=== PATIENT | female | born 1955 | race Two or more races ===

== ENCOUNTER 2020-01-07 06:19 | Inpatient (IN) | payer MEDICAID ==
[~2020-01-07] VITALS: Ht 149.9 cm; Wt 67.6 kg
[2020-01-07] VITALS (8 sets, daily range): BP systolic 133–218; BP diastolic 61–92
--- NOTE | 2020-01-07 06:25 | Emergency Room Report ---
History of Present Illness General Chief Complaint: Abnormal Labs Source: Patient Present Illness HPI Patient is a 65-year-old female brought in by EMS after decreased blood sugar. Patient was noted to have blood sugar in the 30s when seen by EMS. She had been given IV dextrose. Had somewhat improved blood sugar afterward. Patient had previous episode earlier in the day with similar symptoms. Patient had apparently recently seen her doctor and had her medication doses doubled. So she had taken increased amount for the past 3 days to glipizide tablets instead of 1. Had not been having any fever recently. Takes lisinopril for hypertension as well as anticholesterol medications. No prior renal disease known to family or patient. Allergies: Coded Allergies: No Known Allergies (Unverified , 01/07/20) COVID-19 Screening Contact w/high risk pt: No Recent Travel to affected area: No Experienced COVID-19 symptoms?: No COVID-19 Testing performed SALESPERSON JEWELRY: No Patient History Past Medical History: see triage record Now: No Reviewed Nursing Documentation: PMH: Agreed; PSxH: Agreed Nursing Documentation-PMH Past Medical History: No History, Except For Hx Hypertension: Yes Hx Diabetes: Yes Review of Systems All Other Systems: negative except mentioned in HPI Physical Exam Vital Signs Date Time Temp Pulse Resp B/P (MAP) Pulse Ox O2 Delivery O2 Flow Rate FiO2 01/07/20 06:19 98.1 65 18 165/67 (99) 98 Room Air Sp02 EP Interpretation: reviewed, normal General Appearance: normal inspection, well appearing, no apparent distress, alert, GCS 15, non-toxic, obese Head: atraumatic ENT: normal ENT inspection, hearing grossly normal, normal voice Neck: normal inspection, full range of motion, supple, no bony tend Respiratory: normal inspection, lungs clear, normal breath sounds, no respiratory distress, no retraction, no wheezing Cardiovascular #1: regular rate, rhythm, no edema Gastrointestinal: normal inspection, normal bowel sounds, non tender, soft, no guarding, no hernia Genitourinary: no CVA tenderness Musculoskeletal: normal inspection, back normal, normal range of motion Neurologic: alert, motor strength/tone normal, color developer III-XII nml as tested, responsive, speech normal, normal inspection Psychiatric: normal inspection, judgement/insight normal, mood/affect normal Medical Decision Making Diagnostic Impression: Primary Impression: Hypoglycemia secondary to sulfonylurea Additional Impressions: Renal insufficiency Anemia ER Course Presented for hypoglycemia. Differential diagnosis include was not limited to medication overdose, sepsis, decreased medication clearance, among others. Because of complexity of patient's case laboratory tests and imaging studies were ordered. Patient was noted to be awake and alert had repeat blood sugar by EMS at 233. Apparently patient is currently on a long acting sulfonylurea. Patient was given octreotide subcu and started on D10 drip due to drop of blood sugar. She is also given oral food. Patient will be admitted to the hospital for further evaluation and monitoring of blood sugar.Patient's laboratory testing showed some evidence of renal failure. Patient denies any prior history of renal disease or being talked to about dialysis in the past. She was noted to be hypertensive and was given medications for blood pressure. Dr. Guido was contacted for for inpatient management Labs Test 01/07/20 06:30 White Blood Count 10.9 K/UL (4.8-10.8) Red Blood Count 2.67 M/UL (4.20-5.40) Hemoglobin 7.9 G/DL (12.0-16.0) Hematocrit 25.2 % (37.0-47.0) Mean Corpuscular Volume 94 FL (80-99) Mean Corpuscular Hemoglobin 29.7 PG (27.0-31.0) Mean Corpuscular Hemoglobin Concent 31.5 G/DL (32.0-36.0) Red Cell Distribution Width 12.9 % (11.6-14.8) Platelet Count 403 K/UL (150-450) Mean Platelet Volume 5.1 FL (6.5-10.1) Neutrophils (%) (Auto) % (45.0-75.0) Lymphocytes (%) (Auto) % (20.0-45.0) Monocytes (%) (Auto) % (1.0-10.0) Eosinophils (%) (Auto) % (0.0-3.0) Basophils (%) (Auto) % (0.0-2.0) Urine Color Pale yellow Urine Appearance Clear Urine pH 5 (4.5-8.0) Urine Specific [place] 1.015 (1.005-1.035) Urine Protein 4+ (NEGATIVE) Urine Glucose (UA) 1+ (NEGATIVE) Urine Ketones Negative (NEGATIVE) Urine Blood 2+ (NEGATIVE) Urine Nitrite Negative (NEGATIVE) Urine Bilirubin Negative (NEGATIVE) Urine Urobilinogen Normal MG/DL (0.0-1.0) Urine Leukocyte Esterase 1+ (NEGATIVE) Urine RBC 2-4 /HPF (0 - 2) Urine WBC 5-10 /HPF (0 - 2) Urine Squamous Epithelial Cells Few /LPF (NONE/OCC) Urine Bacteria Few /HPF (NONE) Sodium Level 135 MMOL/L (136-145) Potassium Level 4.4 MMOL/L (3.5-5.1) Chloride Level 103 MMOL/L (98-107) Carbon Dioxide Level 18 MMOL/L (21-32) Anion Gap 14 mmol/L (5-15) Blood Urea Nitrogen 83 mg/dL (7-18) Creatinine 7.6 MG/DL (0.55-1.30) Estimat Glomerular Filtration Rate 5.3 mL/min (>60) Glucose Level 117 MG/DL (74-106) Calcium Level 7.4 MG/DL (8.5-10.1) EKG Diagnostic Results Rate: normal - 83 Rhythm: NSR ST Segments: no acute changes Last Vital Signs Date Time Temp Pulse Resp B/P (MAP) Pulse Ox O2 Delivery O2 Flow Rate FiO2 01/07/20 06:19 98.1 65 18 165/67 (99) 98 Room Air Status: unchanged Disposition: ADMITTED INPATIENT Condition: Stable Hermes Izaguirre MD Jan 07, 2020 06:25
[2020-01-07] MEDS ORDERED: SandoSTATIN 50mcg Inj SUBQ ONE (07:00)
[2020-01-07] MEDS ORDERED: Dextrose 10% 1,000 ML IV SCH (07:00)
[2020-01-07 07:01] LABS: HEMATOCRIT 25.2 % (37.0-47.0); HEMOGLOBIN 7.9 G/DL (12.0-16.0); MEAN CORPUSCULAR VOLUME 94 FL (80-99); PLATELET COUNT 403 K/UL (150-450); RED BLOOD COUNT 2.67 M/UL (4.20-5.40); RED CELL DISTRIBUTION WIDTH 12.9 % (11.6-14.8); WHITE BLOOD COUNT 10.9 K/UL (4.8-10.8)
[2020-01-07 07:03] LABS: APPEARANCE,URINE CLEAR; BILIRUBIN, URINE NEGATIVE (NEGATIVE); COLOR,URINE PALE YELLOW; GLUCOSE, URINE (UA) 1+ (NEGATIVE); KETONES,URINE NEGATIVE (NEGATIVE); LEUKOCYTE ESTERASE ,URINE 1+ (NEGATIVE); NITRITE,URINE NEGATIVE (NEGATIVE); PH,URINE 5 (4.5-8.0); PROTEIN,URINE 4+ (NEGATIVE); UROBILINOGEN,URINE NORMAL MG/DL (0.0-1.0)
[2020-01-07] MEDS ORDERED: ASPIRIN81 MG ORAL (07:11)
[2020-01-07] MEDS ORDERED: GLIPIZIDE ER2.5 MG PO (07:11)
[2020-01-07] MEDS ORDERED: LISINOPRIL20 MG ORAL (07:11)
[2020-01-07 07:12] LABS: ANION GAP 14 mmol/L (5-15); BLOOD UREA NITROGEN 83 mg/dL (7-18); CALCIUM 7.4 MG/DL (8.5-10.1); CARBON DIOXIDE 18 MMOL/L (21-32); CHLORIDE 103 MMOL/L (98-107); CREATININE 7.6 MG/DL (0.55-1.30); POTASSIUM 4.4 MMOL/L (3.5-5.1); SODIUM 135 MMOL/L (136-145)
[2020-01-07 07:24] LABS: ALANINE AMINOTRANSFERASE 24 U/L (12-78); ALBUMIN 2.1 G/DL (3.4-5.0); ALBUMIN/GLOBULIN RATIO 0.5 (1.0-2.7); ALKALINE PHOSPHATASE 114 U/L (46-116); ASPARTATE AMINO TRANSFERASE 29 U/L (15-37); BILIRUBIN,TOTAL 0.2 MG/DL (0.2-1.0)
[2020-01-07] MEDS ORDERED: cefTRIAXone 1 GM in NS 55 ML IVPB ONE (07:30)
[2020-01-07] MEDS ORDERED: HydrALAZINE 25mg tab ORAL PRN (10:45)
--- NOTE | 2020-01-07 11:56 | Consultation ---
History of Present Illness General Chief Complaint: Abnormal Labs Present Illness HPI This is a 64 year old chilean speaking female with the past medical history of DM and HTN presents with 2 weeks of nausea, aneroxiaad recurrent hypoglycemia. Patient notes that her DM medication was recently increased in dose. She is not aware of any history of renal disease. No hematuria or foamy urine. Notes decreasing UOP over the past several days. On presentation her BUN/cr noted to be markedly elevated. Denies any recent NSAID use. of note she is on lisinopril for blood pressure control. Allergies: Coded Allergies: No Known Allergies (Unverified , 01/07/20) Medication History Scheduled Aspirin* (Aspirin*), 81 MG ORAL DAILY, (Reported) Lisinopril (Lisinopril*), 20 MG ORAL DAILY, (Reported) Miscellaneous Medications Glipizide (Glipizide Er), 2.5 MG PO, (Reported) Patient History Healthcare decision maker Resuscitation status Advanced Directive on File Review of Systems Constitutional: Reports: malaise, weakness Eye: Reports: blurred vision ENT: Denies: no symptoms, see HPI, ear pain, ear discharge, nose pain, nose congestion, throat pain, throat swelling, mouth pain, hearing loss, nasal discharge, other Respiratory: Denies: no symptoms, see HPI, cough, orthopnea, shortness of breath, stridor, wheezing, PADRON, sputum, other Cardiovascular: Denies: no symptoms, see HPI, chest pain, edema, palpitations, syncope, PND, other Gastrointestinal: Denies: no symptoms, see HPI, abdominal pain, constipation, diarrhea, nausea, vomiting, melena, hematemesis, other Genitourinary: Denies: no symptoms, see HPI, discharge, dysuria, frequency, hematuria, pain, retention, incontinence, urgency, vag bleed/dc, other Musculoskeletal: Denies: no symptoms, see HPI, back pain, gout, joint pain, joint swelling, muscle pain, muscle stiffness, other Skin: Denies: no symptoms, see HPI, rash, change in color, change in hair/nails , dryness, lesions, other Psychiatric: Denies: no symptoms, see HPI, prior hx, anxiety, depressed feelings, emotional problems, SI, HI, hallucinations, other Neurological: Denies: no symptoms, see HPI, headache, numbness, paresthesia, seizure, tingling, tremors, focal weakness, syncope, dizziness, other Endocrine: Denies: no symptoms, see HPI, excessive sweating, flushing, intolerance to temperature, increased thirst, increased urine, unexplained weight loss, other Hematologic/Lymphatic: Denies: no symptoms, see HPI, anemia, blood clots, easy bleeding, easy bruising, swollen glands, diathesis, other Physical Exam General Appearance: no apparent distress, alert, lethargic Lines, tubes and drains: peripheral HEENT: normocephalic, atraumatic, anicteric Neck: non-tender, normal alignment Respiratory/Chest: chest wall non-tender, lungs clear, normal breath sounds Extremities: normal range of motion, non-tender Skin Exam: normal pigmentation Neurologic: alert, oriented x 3 Last 24 Hour Vital Signs Date Time Temp Pulse Resp B/P (MAP) Pulse Ox O2 Delivery O2 Flow Rate FiO2 01/07/20 11:17 85 199/85 01/07/20 09:53 97.2 85 18 199/85 (123) 98 01/07/20 09:15 96.5 80 18 164/80 98 Room Air 01/07/20 08:51 96.5 80 18 164/80 98 Room Air 01/07/20 08:23 96.5 75 17 177/85 99 Room Air 01/07/20 07:24 218/82 01/07/20 07:09 94.0 71 16 218/82 98 Room Air 01/07/20 06:29 98.1 65 18 165/67 98 Room Air 01/07/20 06:19 98.1 65 18 165/67 (99) 98 Room Air Intake and Output 01/06/20 01/07/20 19:00 07:00 Intake Total 0 ml Balance 0 ml Intake Oral 0 ml Laboratory Tests Test 01/07/20 06:30 White Blood Count 10.9 K/UL (4.8-10.8) H Red Blood Count 2.67 M/UL (4.20-5.40) L Hemoglobin 7.9 G/DL (12.0-16.0) L Hematocrit 25.2 % (37.0-47.0) L Mean Corpuscular Volume 94 FL (80-99) Mean Corpuscular Hemoglobin 29.7 PG (27.0-31.0) Mean Corpuscular Hemoglobin Concent 31.5 G/DL (32.0-36.0) L Red Cell Distribution Width 12.9 % (11.6-14.8) Platelet Count 403 K/UL (150-450) Mean Platelet Volume 5.1 FL (6.5-10.1) L Neutrophils (%) (Auto) % (45.0-75.0) Lymphocytes (%) (Auto) % (20.0-45.0) Monocytes (%) (Auto) % (1.0-10.0) Eosinophils (%) (Auto) % (0.0-3.0) Basophils (%) (Auto) % (0.0-2.0) Differential Total Cells Counted 100 Neutrophils % (Manual) 76 % (45-75) H Lymphocytes % (Manual) 14 % (20-45) L Monocytes % (Manual) 7 % (1-10) Eosinophils % (Manual) 3 % (0-3) Basophils % (Manual) 0 % (0-2) Band Neutrophils 0 % (0-8) Platelet Estimate Adequate Platelet Morphology Normal Hypochromasia 1+ Urine Color Pale yellow Urine Appearance Clear Urine pH 5 (4.5-8.0) Urine Specific [place] 1.015 (1.005-1.035) Urine Protein 4+ (NEGATIVE) H Urine Glucose (UA) 1+ (NEGATIVE) H Urine Ketones Negative (NEGATIVE) Urine Blood 2+ (NEGATIVE) H Urine Nitrite Negative (NEGATIVE) Urine Bilirubin Negative (NEGATIVE) Urine Urobilinogen Normal MG/DL (0.0-1.0) Urine Leukocyte Esterase 1+ (NEGATIVE) H Urine RBC 2-4 /HPF (0 - 2) H Urine WBC 5-10 /HPF (0 - 2) H Urine Squamous Epithelial Cells Few /LPF (NONE/OCC) Urine Bacteria Few /HPF (NONE) Sodium Level 135 MMOL/L (136-145) L Potassium Level 4.4 MMOL/L (3.5-5.1) Chloride Level 103 MMOL/L (98-107) Carbon Dioxide Level 18 MMOL/L (21-32) L Anion Gap 14 mmol/L (5-15) Blood Urea Nitrogen 83 mg/dL (7-18) H Creatinine 7.6 MG/DL (0.55-1.30) H Estimat Glomerular Filtration Rate 5.3 mL/min (>60) Glucose Level 117 MG/DL (74-106) H Calcium Level 7.4 MG/DL (8.5-10.1) L Total Bilirubin 0.2 MG/DL (0.2-1.0) Aspartate Amino Transf (AST/SGOT) 29 U/L (15-37) Alanine Aminotransferase (ALT/SGPT) 24 U/L (12-78) Alkaline Phosphatase 114 U/L (46-116) C-Reactive Protein, Quantitative < 0.4 mg/dL (0.00-0.90) Total Protein 6.6 G/DL (6.4-8.2) Albumin 2.1 G/DL (3.4-5.0) L Globulin 4.5 g/dL Albumin/Globulin Ratio 0.5 (1.0-2.7) L Thyroid Stimulating Hormone (TSH) 3.499 uiU/mL (0.358-3.740) Height (Feet): 4 Height (Inches): 11.00 Weight (Pounds): 150 Medications Current Medications Medications (Trade) Dose Ordered Sig/[place] Route PRN Reason Start Time Stop Time Status Last Admin Dose Admin Amlodipine Besylate (Norvasc) 10 mg DAILY ORAL 01/07/20 11:00 02/06/20 10:59 01/07/20 11:17 Dextrose (Dextrose 50%) 25 ml Q30M PRN IV Hypoglycemia 01/07/20 10:45 04/06/20 10:44 Dextrose (Dextrose 50%) 50 ml Q30M PRN IV Hypoglycemia 01/07/20 10:45 04/06/20 10:44 Hydralazine HCl (Apresoline) 25 mg Q6H PRN ORAL SBP > 160mmHg 01/07/20 10:45 04/06/20 10:44 Insulin Aspart (NovoLOG) Q4HR SUBQ 01/07/20 13:00 04/06/20 12:59 Assessment/Plan Diagnosis [place]: #NAREN vs NAREN On CKD-- ? ESRD due to DM and HTN- ua with 4+ proteinuria #Hyperkalemia #Hypoglycemia #HTN- accelerated #DM #HLD #anemia of CKD? - hold off fluid given accelerated BP and unsure if she is making enough urine or not - placed mcgrath - check renal US - UTP/cr - urine chem - kayexalate for hyperkalemia - iron panel - amlodipine 10mg daily - hydralazine PRN for now - check BNP - check echo - PTH/vitamin D - check BMP tonight - avoid nephrotoxins - strict I&Os time spent 70 min, greater than 50% on care coordination and counseling. Anand Cannon M.D. Jan 07, 2020 11:56
[2020-01-07 13:29] LABS: ANION GAP 16 mmol/L (5-15); BLOOD UREA NITROGEN 82 mg/dL (7-18); CALCIUM 7.4 MG/DL (8.5-10.1); CARBON DIOXIDE 17 MMOL/L (21-32); CHLORIDE 100 MMOL/L (98-107); CREATININE 7.8 MG/DL (0.55-1.30); POTASSIUM 5.6 MMOL/L (3.5-5.1); SODIUM 133 MMOL/L (136-145)
[2020-01-07] MEDS: NovoLOG Insulin Flexpen SUBQ SCH ×3 (13:52→21:00)
[2020-01-07] MEDS ORDERED: Sodium Polystyrene Sulfonate 15gm Powder ORAL SCH (15:00)
--- NOTE | 2020-01-07 15:04 | History and Physical ---
History of Present Illness General Date patient seen: Jan 07, 2020 Time patient seen: 15:00 Reason for Hospitalization: Hypoglycemia Present Illness HPI 64y/o female with pmh of HTN, DM2 who presents with hypoglycemia. Pt noted to be confused and BG in 30s, EMS called, given D50 amp with improvement. Of note pt recently had doses of glipizide increased for the past few days. Denies f/c, n/v, d/c, chests pain, SOB, abd pain, cough. In ED, pt started on D10W gtt. Labs also noteable for Cr 7's, BUN 80. Unclear baseline Cr/BUN. Pt denies h/o renal disease. PMH: as above SH: lives at home w/ family. Denies T/E/D FMH: denies Allergies: Coded Allergies: No Known Allergies (Unverified , 01/07/20) COVID-19 Screening Contact w/high risk pt: No Recent Travel to affected area: No Experienced COVID-19 symptoms?: No Medication History Scheduled Aspirin* (Aspirin*), 81 MG ORAL DAILY, (Reported) Lisinopril (Lisinopril*), 20 MG ORAL DAILY, (Reported) Miscellaneous Medications Glipizide (Glipizide Er), 2.5 MG PO, (Reported) Patient History Healthcare decision maker Resuscitation status Advanced Directive on File Review of Systems ROS Narrative CONSTITUTIONAL: No weight loss, fever, chills, weakness or fatigue. HEENT: Eyes: No visual loss, blurred vision, double vision or yellow sclerae. Ears, Nose, Throat: No hearing loss, sneezing, congestion, runny nose or sore throat. SKIN: No rash or itching. CARDIOVASCULAR: No chest pain, chest pressure or chest discomfort. No palpitations or edema. RESPIRATORY: No shortness of breath, cough or sputum. GASTROINTESTINAL: No anorexia, nausea, vomiting or diarrhea. No abdominal pain or blood. NEUROLOGICAL: No headache, dizziness, syncope, paralysis, ataxia, numbness or tingling in the extremities. No change in bowel or bladder control. MUSCULOSKELETAL: No muscle, back pain, joint pain or stiffness. HEMATOLOGIC: No anemia, bleeding or bruising. LYMPHATICS: No enlarged nodes. No history of splenectomy. PSYCHIATRIC: No history of depression or anxiety. ENDOCRINOLOGIC: No reports of sweating, cold or heat intolerance. No polyuria or polydipsia. ALLERGIES: No history of asthma, hives, eczema or rhinitis. Physical Exam Physical Exam Narrative General: alert, cooperative, no distress, appears stated age Head: normocephalic, without obvious abnormality, atraumatic Eyes: conjunctivae/corneas clear. PERRL, EOM's intact Throat: lips, mucosa, and tongue normal. MMM Neck: supple, symmetrical, trachea midline, and no JVD Lungs: clear to auscultation bilaterally Heart: regular rate and rhythm, S1, S2 normal, no murmur, click, rub or gallop Abdomen: soft, non-tender, non-distended, bowel sounds normal; no masses or organomegaly Extremities: extremities normal, atraumatic, no cyanosis or edema Pulses: 2+ and symmetric Skin: skin color, texture, turgor normal; no rashes or lesions Neurologic: grossly normal, no focal deficits Last 24 Hour Vital Signs Date Time Temp Pulse Resp B/P (MAP) Pulse Ox O2 Delivery O2 Flow Rate FiO2 01/07/20 14:43 184/92 01/07/20 12:00 97.9 73 18 184/92 (122) 97 01/07/20 11:17 85 199/85 01/07/20 09:53 97.2 85 18 199/85 (123) 98 01/07/20 09:15 96.5 80 18 164/80 98 Room Air 01/07/20 08:51 96.5 80 18 164/80 98 Room Air 01/07/20 08:23 96.5 75 17 177/85 99 Room Air 01/07/20 07:24 218/82 01/07/20 07:09 94.0 71 16 218/82 98 Room Air 01/07/20 06:29 98.1 65 18 165/67 98 Room Air 01/07/20 06:19 98.1 65 18 165/67 (99) 98 Room Air Intake and Output 01/06/20 01/07/20 19:00 07:00 Intake Total 0 ml Balance 0 ml Intake Oral 0 ml Laboratory Tests Test 01/07/20 06:30 01/07/20 12:35 White Blood Count 10.9 K/UL (4.8-10.8) H Red Blood Count 2.67 M/UL (4.20-5.40) L Hemoglobin 7.9 G/DL (12.0-16.0) L Hematocrit 25.2 % (37.0-47.0) L Mean Corpuscular Volume 94 FL (80-99) Mean Corpuscular Hemoglobin 29.7 PG (27.0-31.0) Mean Corpuscular Hemoglobin Concent 31.5 G/DL (32.0-36.0) L Red Cell Distribution Width 12.9 % (11.6-14.8) Platelet Count 403 K/UL (150-450) Mean Platelet Volume 5.1 FL (6.5-10.1) L Neutrophils (%) (Auto) % (45.0-75.0) Lymphocytes (%) (Auto) % (20.0-45.0) Monocytes (%) (Auto) % (1.0-10.0) Eosinophils (%) (Auto) % (0.0-3.0) Basophils (%) (Auto) % (0.0-2.0) Differential Total Cells Counted 100 Neutrophils % (Manual) 76 % (45-75) H Lymphocytes % (Manual) 14 % (20-45) L Monocytes % (Manual) 7 % (1-10) Eosinophils % (Manual) 3 % (0-3) Basophils % (Manual) 0 % (0-2) Band Neutrophils 0 % (0-8) Platelet Estimate Adequate Platelet Morphology Normal Hypochromasia 1+ Urine Color Pale yellow Urine Appearance Clear Urine pH 5 (4.5-8.0) Urine Specific [place] 1.015 (1.005-1.035) Urine Protein 4+ (NEGATIVE) H Urine Glucose (UA) 1+ (NEGATIVE) H Urine Ketones Negative (NEGATIVE) Urine Blood 2+ (NEGATIVE) H Urine Nitrite Negative (NEGATIVE) Urine Bilirubin Negative (NEGATIVE) Urine Urobilinogen Normal MG/DL (0.0-1.0) Urine Leukocyte Esterase 1+ (NEGATIVE) H Urine RBC 2-4 /HPF (0 - 2) H Urine WBC 5-10 /HPF (0 - 2) H Urine Squamous Epithelial Cells Few /LPF (NONE/OCC) Urine Bacteria Few /HPF (NONE) Sodium Level 135 MMOL/L (136-145) L 133 MMOL/L (136-145) L Potassium Level 4.4 MMOL/L (3.5-5.1) 5.6 MMOL/L (3.5-5.1) H Chloride Level 103 MMOL/L (98-107) 100 MMOL/L (98-107) Carbon Dioxide Level 18 MMOL/L (21-32) L 17 MMOL/L (21-32) L Anion Gap 14 mmol/L (5-15) 16 mmol/L (5-15) H Blood Urea Nitrogen 83 mg/dL (7-18) H 82 mg/dL (7-18) H Creatinine 7.6 MG/DL (0.55-1.30) H 7.8 MG/DL (0.55-1.30) H Estimat Glomerular Filtration Rate 5.3 mL/min (>60) 5.2 mL/min (>60) Glucose Level 117 MG/DL (74-106) H 286 MG/DL (74-106) #H Calcium Level 7.4 MG/DL (8.5-10.1) L 7.4 MG/DL (8.5-10.1) L Total Bilirubin 0.2 MG/DL (0.2-1.0) Aspartate Amino Transf (AST/SGOT) 29 U/L (15-37) Alanine Aminotransferase (ALT/SGPT) 24 U/L (12-78) Alkaline Phosphatase 114 U/L (46-116) C-Reactive Protein, Quantitative < 0.4 mg/dL (0.00-0.90) Total Protein 6.6 G/DL (6.4-8.2) Albumin 2.1 G/DL (3.4-5.0) L Globulin 4.5 g/dL Albumin/Globulin Ratio 0.5 (1.0-2.7) L Thyroid Stimulating Hormone (TSH) 3.499 uiU/mL (0.358-3.740) Height (Feet): 4 Height (Inches): 11.00 Weight (Pounds): 150 Medications Current Medications Medications (Trade) Dose Ordered Sig/[place] Route PRN Reason Start Time Stop Time Status Last Admin Dose Admin Amlodipine Besylate (Norvasc) 10 mg DAILY ORAL 01/07/20 11:00 02/06/20 10:59 01/07/20 11:17 Dextrose (Dextrose 50%) 25 ml Q30M PRN IV Hypoglycemia 01/07/20 10:45 9/20/20 10:44 Dextrose (Dextrose 50%) 50 ml Q30M PRN IV Hypoglycemia 01/07/20 10:45 04/06/20 10:44 Hydralazine HCl (Apresoline) 10 mg Q4H PRN IV SBP > 160 01/07/20 14:45 04/06/20 14:44 01/07/20 14:43 Insulin Aspart (NovoLOG) Q4HR SUBQ 01/07/20 13:00 04/06/20 12:59 01/07/20 13:52 Assessment/Plan Status: stable Assessment/Plan: 64yo female with pmh of HTN, DM2 who presents with hypoglycemia,and found to have NAREN. # Symptomatic hypoglycemia - BG 30s - likely 2/2 increased dose of glipizide # Acute encephalopathy # Diabetes mellitus type 2 - Hold all hypoglycemic agents - SSI - s/p D10W gtt in ED - Consider endo eval # NAREN vs NAREN on CKD - unclear baseline Cr. BUN 80s/Cr 7's. Pt likely with CKD 2/ 2 underlying diabetes and HTN # Hyperkalemia # Hyponatremia, hypervolemic ype - Renal consulted - Hold lisinopril - Kayexylate x1 today - Trend BMP/Mg/Phos - Check renal U/Ss - May need HD # HTN - Hold lisinopril 2/2 NAREN - Amlodipine 10mg daily started DVT Prophylaxis: SCD, HSQ Code Status: Full Hospital Classification Declaration: Based on this initial evaluation, and depending on the patient's clinical course, I anticipate that this patient will require hospitalization for 2-3 days for hypoglycemia, NAREN, and close respiratory/hemodynamic monitoring. Disposition: Once the patient is stable to leave the hospital, I anticipate the patient will likely be discharged to the following environment: home with HH vs SNF I spent 68 minutes on this patient's case, and 35 minutes were dedicated to counseling and/or care coordination. Discussed with patient/family, nursing staff, renal regarding clinical status, treatment course, and disposition planning. Time of note may not reflect time of encounter. Robin Galvan M.D. Jan 07, 2020 15:04
[2020-01-07 16:25] LABS: ANION GAP 12 mmol/L (5-15); BLOOD UREA NITROGEN 79 mg/dL (7-18); CALCIUM 7.3 MG/DL (8.5-10.1); CARBON DIOXIDE 19 MMOL/L (21-32); CHLORIDE 101 MMOL/L (98-107); CREATININE 7.9 MG/DL (0.55-1.30); POTASSIUM 5.8 MMOL/L (3.5-5.1); SODIUM 131 MMOL/L (136-145)
[2020-01-07 16:37] LABS: BILIRUBIN, URINE NEGATIVE (NEGATIVE); COLOR,URINE PALE YELLOW; GLUCOSE, URINE (UA) 3+ (NEGATIVE); KETONES,URINE NEGATIVE (NEGATIVE); LEUKOCYTE ESTERASE ,URINE NEGATIVE (NEGATIVE); NITRITE,URINE NEGATIVE (NEGATIVE); PH,URINE 6 (4.5-8.0); PROTEIN,URINE 4+ (NEGATIVE); UROBILINOGEN,URINE NORMAL MG/DL (0.0-1.0)
[2020-01-07 16:38] LABS: APPEARANCE,URINE CLEAR
--- NOTE | 2020-01-07 17:07 | Diagnostic Imaging Report ---
EXAM: ULTRASOUND US Renal Comp CLINICAL HISTORY: Impaired renal function. History of diabetes. Abdominal discomfort. COMPARISON: None TECHNIQUE: Ultrasound examination of the kidneys includes grayscale images, and color and spectral doppler analysis. FINDINGS: The right kidney measures 9.1 x 3.7 x 4.2 cm and the left kidney measures 9.5 x 5.4 x 4.8 cm. There is increased cortical echogenicity of both kidneys reflecting medical renal disease. There is no hydronephrosis or stone seen bilaterally. There is incidental finding of a shadowing gallstone. Bladder is empty with Weston catheter in place. IMPRESSION: ECHOGENIC KIDNEYS REFLECTING MEDICAL RENAL DISEASE. NO OBSTRUCTIVE UROPATHY. GALLSTONE.
[2020-01-07] MEDS ORDERED: HydrALAZINE 25mg tab ORAL SCH (18:00)
[2020-01-08] VITALS: BP 152/78
[2020-01-08] MEDS ORDERED: Calcium Gluconate 1gm/50ml 50 ML IVPB ONE (00:15)
[2020-01-08] MEDS ORDERED: Insulin Human Regular 100units/ml 3ml IV ONE (00:15)
[2020-01-08] MEDS ORDERED: Sodium Polystyrene Sulfonate 15gm Powder ORAL ONE (01:00)
[2020-01-08] MEDS ORDERED: Albuterol/Ipratropium 3ml neb HHN ONE (01:00)
[2020-01-08] MEDS: NovoLOG Insulin Flexpen SUBQ SCH ×6 (01:00→20:47)
[2020-01-08 04:00] VITALS: BP 149/71
[2020-01-08 04:45] LABS: ANION GAP 11 mmol/L (5-15); BLOOD UREA NITROGEN 87 mg/dL (7-18); CALCIUM 7.6 MG/DL (8.5-10.1); CARBON DIOXIDE 25 MMOL/L (21-32); CHLORIDE 103 MMOL/L (98-107); CREATININE 8.6 MG/DL (0.55-1.30); POTASSIUM 4.5 MMOL/L (3.5-5.1); SODIUM 139 MMOL/L (136-145)
[2020-01-08 04:49] LABS: PHOSPHORUS 6.2 MG/DL (2.5-4.9)
[2020-01-08 04:52] LABS: HEMATOCRIT 20.5 % (37.0-47.0); MEAN CORPUSCULAR VOLUME 93 FL (80-99); PLATELET COUNT 361 K/UL (150-450); RED BLOOD COUNT 2.22 M/UL (4.20-5.40); RED CELL DISTRIBUTION WIDTH 12.8 % (11.6-14.8); WHITE BLOOD COUNT 11.8 K/UL (4.8-10.8)
[2020-01-08 05:00] LABS: % IRON SATURATION 9 % (15-50); IRON 29 ug/dL (50-175); TOTAL IRON BINDING CAPACITY 307 ug/dL (250-450)
[2020-01-08 05:04] LABS: FERRITIN 35 NG/ML (8-388)
[2020-01-08 05:10] LABS: HEMOGLOBIN 6.6 G/DL (12.0-16.0)
[2020-01-08 08:00] VITALS: BP 153/72
--- NOTE | 2020-01-08 08:26 | Nephrology Progress Note ---
Assessment/Plan Plan #NAREN vs NAREN On CKD-- ? ESRD due to DM and HTN- ua with 4+ proteinuria #Hyperkalemia- improved #Hypoglycemia #hyperphosphetemia #HTN- accelerated #DM #HLD #anemia of CKD? - General surgery consulted for HD line placement- pending consent by family - placed mcgrath - check renal US-> echogenic kidneys - prbc transfusion - IV iron - amlodipine 10mg daily - hydralazine PRN for now - sevelamer 800mgTID - PTH/vitamin D - check BMP tonight - avoid nephrotoxins - strict I&Os time spent 70 min, greater than 50% on care coordination and counseling. Subjective ROS Limited/Unobtainable: No Constitutional: Reports: malaise, weakness HEENT: Denies: no symptoms, eye pain, blurred vision, tearing, double vision, ear pain, ear discharge, nose pain, nose congestion, throat pain, throat swelling, mouth pain, mouth swelling, other Genitourinary: Denies: no symptoms, burning, discharge, frequency, flank pain, hematuria, incontinence, pain, urgency, other Neurologic/Psychiatric: Denies: no symptoms, anxiety, depressed, emotional problems, headache, numbness, paresthesia, pre-existing deficit, seizure, tingling, tremors, weakness, other Subjective BUN and cr risin feeling nausea oliguric plan for to start HD today Martina US:IMPRESSION: ECHOGENIC KIDNEYS REFLECTING MEDICAL RENAL DISEASE. NO OBSTRUCTIVE UROPATHY. GALLSTONE. Objective Objective Last 24 Hour Vital Signs Date Time Temp Pulse Resp B/P (MAP) Pulse Ox O2 Delivery O2 Flow Rate FiO2 01/08/20 08:00 97.9 99 18 153/72 (99) 98 01/08/20 04:00 99.1 91 18 149/71 (97) 99 01/08/20 04:00 90 01/08/20 01:51 96 20 100 Nasal Cannula 2.0 28 103 20 99 01/08/20 01:17 100.1 01/08/20 00:00 81 01/08/20 00:00 100.6 84 18 152/78 (102) 100 01/07/20 21:00 Room Air 01/07/20 20:00 78 01/07/20 20:00 98.9 85 18 133/69 (90) 95 01/07/20 16:00 99.5 82 20 138/61 (86) 97 01/07/20 14:43 184/92 01/07/20 13:50 Room Air 01/07/20 12:00 97.9 73 18 184/92 (122) 97 01/07/20 11:17 85 199/85 01/07/20 09:53 97.2 85 18 199/85 (123) 98 01/07/20 09:15 96.5 80 18 164/80 98 Room Air 01/07/20 08:51 96.5 80 18 164/80 98 Room Air Intake and Output 01/07/20 01/08/20 19:00 07:00 Intake Total 310 ml Output Total 350 ml Balance 310 ml -350 ml Intake Oral 240 ml IV Total 70 ml Output Urine Total 350 ml Laboratory Tests 01/07/20 12:35: Sodium Level 133L, Potassium Level 5.6H, Chloride Level 100, Carbon Dioxide Level 17L, Anion Gap 16H, Blood Urea Nitrogen 82H, Creatinine 7.8H, Estimat Glomerular Filtration Rate 5.2, Glucose Level 286#H, Calcium Level 7.4L 01/07/20 15:40: Sodium Level 131L, Potassium Level 5.8H, Chloride Level 101, Carbon Dioxide Level 19L, Anion Gap 12, Blood Urea Nitrogen 79H, Creatinine 7.9H, Estimat Glomerular Filtration Rate 5.1, Glucose Level 326H, Calcium Level 7.3L, Phosphorus Level 6.4H, Magnesium Level 2.4 01/07/20 16:20: Urine Color Pale yellow, Urine Appearance Clear, Urine pH 6, Urine Specific [place] 1.010, Urine Protein 4+H, Urine Glucose (UA) 3+H, Urine Ketones Negative , Urine Blood 3+H, Urine Nitrite Negative, Urine Bilirubin Negative, Urine Urobilinogen Normal, Urine Leukocyte Esterase Negative, Urine RBC 2-4H, Urine WBC 0-2, Urine Squamous Epithelial Cells Few, Urine Amorphous Sediment ModerateH , Urine Bacteria Few, Urine Random Total Protein 496H, Urine Random Sodium 20, Urine Creatinine 58.7 01/08/20 04:00: Sodium Level 139, Potassium Level 4.5, Chloride Level 103, Carbon Dioxide Level 25, Anion Gap 11, Blood Urea Nitrogen 87H, Creatinine 8.6H, Estimat Glomerular Filtration Rate 4.7, Glucose Level 99#, Calcium Level 7.6L, Phosphorus Level 6.2H, Magnesium Level 2.5H, White Blood Count 11.8H, Red Blood Count 2.22L, Hemoglobin 6.6*L, Hematocrit 20.5L, Mean Corpuscular Volume 93, Mean Corpuscular Hemoglobin 29.7, Mean Corpuscular Hemoglobin Concent 32.2, Red Cell Distribution Width 12.8, Platelet Count 361, Mean Platelet Volume 5.4L, Neutrophils (%) (Auto) , Lymphocytes (%) (Auto) , Monocytes (%) (Auto) , Eosinophils (%) (Auto) , Basophils (%) (Auto) , Neutrophils % (Manual) [Pending] , Lymphocytes % (Manual) [Pending], Platelet Estimate [Pending], Platelet Morphology [Pending], Hemoglobin A1c 6.2H, Lactic Acid Level 1.60, Calcium ( Send out) [Pending], Iron Level 29L, Total Iron Binding Capacity 307, Percent Iron Saturation 9L, Unsaturated Iron Binding 278, Ferritin 35, Pro-B-Type Natriuretic Peptide 32837U, Vitamin B12 Level 1184H, Vitamin D 25-Hydroxy [ Pending], 25-Hydroxy Vitamin D2 [Pending], 25-Hydroxy Vitamin D3 [Pending], Thyroid Stimulating Hormone (TSH) 2.094, Parathyroid Hormone (Intact) [Pending] Height (Feet): 4 Height (Inches): 11.00 Weight (Pounds): 150 General Appearance: lethargic EENT: PERRL/EOMI, normal ENT inspection Neck: non-tender, normal alignment Cardiovascular: normal peripheral pulses, normal rate, regular rhythm Respiratory/Chest: chest wall non-tender, lungs clear Abdomen: normal bowel sounds, non tender Extremities: normal range of motion, non-tender Anand Cannon M.D. Jan 08, 2020 08:26
[2020-01-08] MEDS ORDERED: Docusate 100mg cap ORAL SCH (09:00)
[2020-01-08] MEDS: Aspirin Baby 81mg ORAL SCH (09:33)
--- NOTE | 2020-01-08 10:12 | General Progress Note ---
Assessment/Plan Problem List: (1) Renal insufficiency ICD Codes: N28.9 - Disorder of kidney and ureter, unspecified SNOMED: 290053550, 030451483 (2) Anemia ICD Codes: D64.9 - Anemia, unspecified SNOMED: 668137798 (3) Hypertension ICD Codes: I10 - Essential (primary) hypertension SNOMED: 16486345 (4) Hypoglycemia secondary to sulfonylurea ICD Codes: T38.3X1A - Poisoning by insulin and oral hypoglycemic [antidiabetic ] drugs, accidental (unintentional), initialencounter; E16.0 - Drug-induced hypoglycemia without coma SNOMED: 204409340, 515641848 Status: stable Assessment/Plan: 64yo female with pmh of HTN, DM2 who presents with hypoglycemia,and found to have NAREN. # Symptomatic hypoglycemia - BG 30s - likely 2/2 increased dose of glipizide # Acute encephalopathy # Diabetes mellitus type 2 - Hold all hypoglycemic agents - SSI - s/p D10W gtt in ED - f/u Endo consult # NAREN vs NAREN on CKD - unclear baseline Cr. BUN 80s/Cr 7's. Pt likely with CKD 2/ 2 underlying diabetes and HTN # Hyperkalemia # Hyponatremia, hypervolemic ype - Renal consulted - Hold lisinopril - Kayexylate x1 today - Trend BMP/Mg/Phos - Check renal U/S: renal disease, no signs of post-obstruction - May need HD # Fever - asymptomatic - blood cultures x 2 - lactic acid - f/u CXR - ordered COVID, does not meet in-house criteria for COVID, ilda RN # Anemia -Trend CBC -Check FOBT from stool -Iron panel -GI consult, appreciate recommendations # HTN - Hold lisinopril 2/2 NAREN - Amlodipine 10mg daily started DVT Prophylaxis: SCD, HSQ Code Status: Full Hospital Classification Declaration: Based on this initial evaluation, and depending on the patient's clinical course, I anticipate that this patient will require hospitalization for 2-3 days for hypoglycemia, NAREN, and close respiratory/hemodynamic monitoring. Disposition: Once the patient is stable to leave the hospital, I anticipate the patient will likely be discharged to the following environment: home with HH vs SNF I spent 38 minutes on this patient's case, and 35 minutes were dedicated to counseling and/or care coordination. Discussed with patient/family, nursing staff, renal regarding clinical status, treatment course, and disposition planning. Time of note may not reflect time of encounter. Subjective Date patient seen: Jan 08, 2020 Time patient seen: 10:35 Allergies: Coded Allergies: No Known Allergies (Unverified , 01/07/20) All Systems: reviewed and negative except above Subjective Patient is not making urine T-max of 100.6, overall Patient denies any feeling of fever, chills, abdominal pain, vomiting, diarrhea , cough Attempted to contact family, no answer Objective Last 24 Hour Vital Signs Date Time Temp Pulse Resp B/P (MAP) Pulse Ox O2 Delivery O2 Flow Rate FiO2 01/08/20 09:33 99 153/72 01/08/20 08:00 97.9 99 18 153/72 (99) 98 01/08/20 04:00 99.1 91 18 149/71 (97) 99 01/08/20 04:00 90 01/08/20 01:51 96 20 100 Nasal Cannula 2.0 28 103 20 99 01/08/20 01:17 100.1 01/08/20 00:00 81 01/08/20 00:00 100.6 84 18 152/78 (102) 100 01/07/20 21:00 Room Air 01/07/20 20:00 78 01/07/20 20:00 98.9 85 18 133/69 (90) 95 01/07/20 16:00 99.5 82 20 138/61 (86) 97 01/07/20 14:43 184/92 01/07/20 13:50 Room Air 01/07/20 12:00 97.9 73 18 184/92 (122) 97 01/07/20 11:17 85 199/85 Intake and Output 01/07/20 01/08/20 19:00 07:00 Intake Total 310 ml Output Total 350 ml Balance 310 ml -350 ml Intake Oral 240 ml IV Total 70 ml Output Urine Total 350 ml Laboratory Tests 01/07/20 12:35: Sodium Level 133L, Potassium Level 5.6H, Chloride Level 100, Carbon Dioxide Level 17L, Anion Gap 16H, Blood Urea Nitrogen 82H, Creatinine 7.8H, Estimat Glomerular Filtration Rate 5.2, Glucose Level 286#H, Calcium Level 7.4L 01/07/20 15:40: Sodium Level 131L, Potassium Level 5.8H, Chloride Level 101, Carbon Dioxide Level 19L, Anion Gap 12, Blood Urea Nitrogen 79H, Creatinine 7.9H, Estimat Glomerular Filtration Rate 5.1, Glucose Level 326H, Calcium Level 7.3L, Phosphorus Level 6.4H, Magnesium Level 2.4 01/07/20 16:20: Urine Color Pale yellow, Urine Appearance Clear, Urine pH 6, Urine Specific [place] 1.010, Urine Protein 4+H, Urine Glucose (UA) 3+H, Urine Ketones Negative , Urine Blood 3+H, Urine Nitrite Negative, Urine Bilirubin Negative, Urine Urobilinogen Normal, Urine Leukocyte Esterase Negative, Urine RBC 2-4H, Urine WBC 0-2, Urine Squamous Epithelial Cells Few, Urine Amorphous Sediment ModerateH , Urine Bacteria Few, Urine Random Total Protein 496H, Urine Random Sodium 20, Urine Creatinine 58.7 01/08/20 04:00: Sodium Level 139, Potassium Level 4.5, Chloride Level 103, Carbon Dioxide Level 25, Anion Gap 11, Blood Urea Nitrogen 87H, Creatinine 8.6H, Estimat Glomerular Filtration Rate 4.7, Glucose Level 99#, Calcium Level 7.6L, Phosphorus Level 6.2H, Magnesium Level 2.5H, White Blood Count 11.8H, Red Blood Count 2.22L, Hemoglobin 6.6*L, Hematocrit 20.5L, Mean Corpuscular Volume 93, Mean Corpuscular Hemoglobin 29.7, Mean Corpuscular Hemoglobin Concent 32.2, Red Cell Distribution Width 12.8, Platelet Count 361, Mean Platelet Volume 5.4L, Neutrophils (%) (Auto) , Lymphocytes (%) (Auto) , Monocytes (%) (Auto) , Eosinophils (%) (Auto) , Basophils (%) (Auto) , Differential Total Cells Counted 100, Neutrophils % (Manual) 75, Lymphocytes % (Manual) 14L, Monocytes % (Manual) 10, Eosinophils % (Manual) 1, Basophils % (Manual) 0, Band Neutrophils 0, Platelet Estimate Adequate, Platelet Morphology Normal, Hemoglobin A1c 6.2H, Lactic Acid Level 1.60, Calcium (Send out) [Pending], Iron Level 29L, Total Iron Binding Capacity 307, Percent Iron Saturation 9L, Unsaturated Iron Binding 278, Ferritin 35, Pro-B-Type Natriuretic Peptide 67399K, Vitamin B12 Level 1184H , Vitamin D 25-Hydroxy [Pending], 25-Hydroxy Vitamin D2 [Pending], 25-Hydroxy Vitamin D3 [Pending], Thyroid Stimulating Hormone (TSH) 2.094, Parathyroid Hormone (Intact) [Pending] Height (Feet): 4 Height (Inches): 11.00 Weight (Pounds): 150 Objective GENERAL: No acute distress, appears comfortable, alert HEENT: NCAT, non-icteric eyes, pupils PERRLA Neck: No cervical lymphadenopathy, trachea midline CV: Regular rate and rhythm, no murmurs rubs or gallops RESP: Clear to auscultation bilaterally, no wheezes/rhonchi/crackles ABD: soft, non-distended, no TTP EXT: Normal muscle tone, +5/5 muscle strength NEURO: No obvious deficits, alert and oriented x3 Ny Pittman DO Jan 08, 2020 10:12
--- NOTE | 2020-01-08 11:32 | General Progress Note ---
Assessment/Plan Problem List: (1) Hypertension ICD Codes: I10 - Essential (primary) hypertension SNOMED: 87700654 (2) Renal insufficiency ICD Codes: N28.9 - Disorder of kidney and ureter, unspecified SNOMED: 799443987, 581479101 (3) Anemia ICD Codes: D64.9 - Anemia, unspecified SNOMED: 110787686 (4) Hypoglycemia secondary to sulfonylurea ICD Codes: T38.3X1A - Poisoning by insulin and oral hypoglycemic [antidiabetic ] drugs, accidental (unintentional), initialencounter; E16.0 - Drug-induced hypoglycemia without coma SNOMED: 539481007, 912515842 Status: stable Assessment/Plan: iv iron colace and miralax fu stool ob anemia most likely related to kidney DZ GI procedures if needed Subjective Allergies: Coded Allergies: No Known Allergies (Unverified , 01/07/20) Objective Last 24 Hour Vital Signs Date Time Temp Pulse Resp B/P (MAP) Pulse Ox O2 Delivery O2 Flow Rate FiO2 01/08/20 09:33 99 153/72 01/08/20 08:00 97.9 99 18 153/72 (99) 98 01/08/20 04:00 99.1 91 18 149/71 (97) 99 01/08/20 04:00 90 01/08/20 01:51 96 20 100 Nasal Cannula 2.0 28 103 20 99 01/08/20 01:17 100.1 01/08/20 00:00 81 01/08/20 00:00 100.6 84 18 152/78 (102) 100 01/07/20 21:00 Room Air 01/07/20 20:00 78 01/07/20 20:00 98.9 85 18 133/69 (90) 95 01/07/20 16:00 99.5 82 20 138/61 (86) 97 01/07/20 14:43 184/92 01/07/20 13:50 Room Air 01/07/20 12:00 97.9 73 18 184/92 (122) 97 Intake and Output 01/07/20 01/08/20 19:00 07:00 Intake Total 310 ml Output Total 350 ml Balance 310 ml -350 ml Intake Oral 240 ml IV Total 70 ml Output Urine Total 350 ml Laboratory Tests 01/07/20 12:35: Sodium Level 133L, Potassium Level 5.6H, Chloride Level 100, Carbon Dioxide Level 17L, Anion Gap 16H, Blood Urea Nitrogen 82H, Creatinine 7.8H, Estimat Glomerular Filtration Rate 5.2, Glucose Level 286#H, Calcium Level 7.4L 01/07/20 15:40: Sodium Level 131L, Potassium Level 5.8H, Chloride Level 101, Carbon Dioxide Level 19L, Anion Gap 12, Blood Urea Nitrogen 79H, Creatinine 7.9H, Estimat Glomerular Filtration Rate 5.1, Glucose Level 326H, Calcium Level 7.3L, Phosphorus Level 6.4H, Magnesium Level 2.4 01/07/20 16:20: Urine Color Pale yellow, Urine Appearance Clear, Urine pH 6, Urine Specific [place] 1.010, Urine Protein 4+H, Urine Glucose (UA) 3+H, Urine Ketones Negative , Urine Blood 3+H, Urine Nitrite Negative, Urine Bilirubin Negative, Urine Urobilinogen Normal, Urine Leukocyte Esterase Negative, Urine RBC 2-4H, Urine WBC 0-2, Urine Squamous Epithelial Cells Few, Urine Amorphous Sediment ModerateH , Urine Bacteria Few, Urine Random Total Protein 496H, Urine Random Sodium 20, Urine Creatinine 58.7 01/08/20 04:00: Sodium Level 139, Potassium Level 4.5, Chloride Level 103, Carbon Dioxide Level 25, Anion Gap 11, Blood Urea Nitrogen 87H, Creatinine 8.6H, Estimat Glomerular Filtration Rate 4.7, Glucose Level 99#, Calcium Level 7.6L, Phosphorus Level 6.2H, Magnesium Level 2.5H, White Blood Count 11.8H, Red Blood Count 2.22L, Hemoglobin 6.6*L, Hematocrit 20.5L, Mean Corpuscular Volume 93, Mean Corpuscular Hemoglobin 29.7, Mean Corpuscular Hemoglobin Concent 32.2, Red Cell Distribution Width 12.8, Platelet Count 361, Mean Platelet Volume 5.4L, Neutrophils (%) (Auto) , Lymphocytes (%) (Auto) , Monocytes (%) (Auto) , Eosinophils (%) (Auto) , Basophils (%) (Auto) , Differential Total Cells Counted 100, Neutrophils % (Manual) 75, Lymphocytes % (Manual) 14L, Monocytes % (Manual) 10, Eosinophils % (Manual) 1, Basophils % (Manual) 0, Band Neutrophils 0, Platelet Estimate Adequate, Platelet Morphology Normal, Hemoglobin A1c 6.2H, Lactic Acid Level 1.60, Calcium (Send out) [Pending], Iron Level 29L, Total Iron Binding Capacity 307, Percent Iron Saturation 9L, Unsaturated Iron Binding 278, Ferritin 35, Pro-B-Type Natriuretic Peptide 08219D, Vitamin B12 Level 1184H , Vitamin D 25-Hydroxy [Pending], 25-Hydroxy Vitamin D2 [Pending], 25-Hydroxy Vitamin D3 [Pending], Thyroid Stimulating Hormone (TSH) 2.094, Parathyroid Hormone (Intact) [Pending] Height (Feet): 4 Height (Inches): 11.00 Weight (Pounds): 150 General Appearance: no apparent distress EENT: normal ENT inspection Neck: supple Cardiovascular: normal rate Respiratory/Chest: decreased breath sounds Abdomen: normal bowel sounds, non tender, soft Alejandro Chamberlain MD Jan 08, 2020 11:32
[2020-01-08 12:00] VITALS: BP 147/61
[2020-01-08] MEDS: Docusate 100mg cap ORAL SCH ×2 (12:00→17:58)
--- NOTE | 2020-01-08 15:30 | Diagnostic Imaging Report ---
Procedure: XRAY Chest 1v Reason for study: Reason For Exam: SOB Comparison films: None. FINDINGS: A single one view chest is obtained. Vascularity is normal. Hazy infiltrates noted in both lung bases. There is cardiomegaly. There may be small effusions. The bony thorax appear unremarkable. IMPRESSION: Hazy basilar infiltrates and possible small effusions.
[2020-01-08 16:00] VITALS: BP 140/64
[2020-01-08 17:10] LABS: APPEARANCE,URINE CLEAR; BILIRUBIN, URINE NEGATIVE (NEGATIVE); COLOR,URINE PALE YELLOW; GLUCOSE, URINE (UA) 1+ (NEGATIVE); KETONES,URINE NEGATIVE (NEGATIVE); LEUKOCYTE ESTERASE ,URINE 1+ (NEGATIVE); NITRITE,URINE NEGATIVE (NEGATIVE); PH,URINE 6 (4.5-8.0); PROTEIN,URINE 4+ (NEGATIVE); UROBILINOGEN,URINE NORMAL MG/DL (0.0-1.0)
--- NOTE | 2020-01-08 17:57 | Consultation ---
History of Present Illness General Date patient seen: Jan 08, 2020 Reason for Hospitalization: Abnormal Labs Present Illness HPI This is a 65-year-old female brought in by EMS after decreased blood sugar. Patient was noted to have blood sugar in the 30s when seen by EMS. She had been given IV dextrose. Had somewhat improved blood sugar afterward. Patient had previous episode earlier in the day with similar symptoms. Patient had apparently recently seen her doctor and had her medication doses doubled. So she had taken increased amount for the past 3 days to glipizide tablets instead of 1. Had not been having any fever recently. Takes lisinopril for hypertension as well as anticholesterol medications. No prior renal disease known to family or patient. On admission noted to have anemia abnormal labs renal insufficiency. Surgery called to eval and assist with care. Patient potentially needing dialysis but does not have access. Allergies: Coded Allergies: No Known Allergies (Unverified , 01/07/20) COVID-19 Screening Contact w/high risk pt: No Recent Travel to affected area: No Experienced COVID-19 symptoms?: No Medication History Scheduled Aspirin* (Aspirin*), 81 MG ORAL DAILY, (Reported) Lisinopril (Lisinopril*), 20 MG ORAL DAILY, (Reported) Miscellaneous Medications Glipizide (Glipizide Er), 2.5 MG PO, (Reported) Patient History Limited by: medical condition History Provided By: Medical Record, PMD Healthcare decision maker Resuscitation status Advanced Directive on File Past Medical/Surgical History Past Medical/Surgical History: (1) Anemia (2) Renal insufficiency (3) Hypertension (4) Hypoglycemia secondary to sulfonylurea Review of Systems Review of Symptoms General ROS: no weight loss or fever Psychological ROS: no depression or mood changes, no memory loss Ophthalmic ROS: no visual changes or eye irritation ENT ROS: no nasal congestion, hearing loss, dizziness Allergy and Immunology ROS: no allergic symptoms or urticaria Hematological and Lymphatic ROS: no swollen glands, unusual bleeding or bruising Endocrine ROS: no polyuria, polydipsia, weight changes, temperature intolerance Respiratory ROS: no cough, shortness of breath, or wheezing Cardiovascular ROS: no chest pain or dyspnea on exertion Gastrointestinal ROS: denies abdominal pain, bright red blood in stool. Musculoskeletal ROS: no myalgias or arthralgias Neurological ROS: no TIA or stroke symptoms Dermatological ROS: no new or changing skin lesions, rashes or pruritis limited given medical condition Physical Exam Physical Exam General appearance: alert, cooperative, no distress, appears stated age Head: Normocephalic, without obvious abnormality, atraumatic Eyes: conjunctivae/corneas clear. PERRL, EOM's intact. Fundi benign Throat: Lips, mucosa, and tongue normal. Teeth and gums normal Neck: supple, symmetrical, trachea midline, no adenopathy, thyroid: not enlarged, symmetric, no tenderness/mass/nodules, no carotid bruit and no JVD Lungs: clear to auscultation bilaterally Heart: regular rate and rhythm, S1, S2 normal, no murmur, click, rub or gallop Abdomen: soft, non-tender. Bowel sounds normal. No masses, no organomegaly Extremities: extremities normal, atraumatic, no cyanosis or edema Pulses: 2+ and symmetric Skin: Skin color, texture, turgor normal. No rashes or lesions Neurologic: Grossly normal Last 24 Hour Vital Signs Date Time Temp Pulse Resp B/P (MAP) Pulse Ox O2 Delivery O2 Flow Rate FiO2 01/08/20 16:00 99.0 89 18 140/64 (89) 97 01/08/20 15:32 99.0 01/08/20 14:00 100.8 01/08/20 12:00 99.7 106 18 147/61 (89) 98 01/08/20 11:20 86 01/08/20 09:33 99 153/72 01/08/20 09:00 Room Air 01/08/20 08:00 97.9 99 18 153/72 (99) 98 01/08/20 07:16 87 01/08/20 04:00 99.1 91 18 149/71 (97) 99 01/08/20 04:00 90 01/08/20 01:51 96 20 100 Nasal Cannula 2.0 28 103 20 99 01/08/20 00:00 81 01/08/20 00:00 100.6 84 18 152/78 (102) 100 01/07/20 21:00 Room Air 01/07/20 20:00 78 01/07/20 20:00 98.9 85 18 133/69 (90) 95 Intake and Output 01/07/20 01/08/20 19:00 07:00 Intake Total 310 ml Output Total 350 ml Balance 310 ml -350 ml Intake Oral 240 ml IV Total 70 ml Output Urine Total 350 ml Laboratory Tests Test 01/08/20 04:00 01/08/20 15:20 01/08/20 16:57 White Blood Count 11.8 K/UL (4.8-10.8) H Red Blood Count 2.22 M/UL (4.20-5.40) L Hemoglobin 6.6 G/DL (12.0-16.0) *L Hematocrit 20.5 % (37.0-47.0) L Mean Corpuscular Volume 93 FL (80-99) Mean Corpuscular Hemoglobin 29.7 PG (27.0-31.0) Mean Corpuscular Hemoglobin Concent 32.2 G/DL (32.0-36.0) Red Cell Distribution Width 12.8 % (11.6-14.8) Platelet Count 361 K/UL (150-450) Mean Platelet Volume 5.4 FL (6.5-10.1) L Neutrophils (%) (Auto) % (45.0-75.0) Lymphocytes (%) (Auto) % (20.0-45.0) Monocytes (%) (Auto) % (1.0-10.0) Eosinophils (%) (Auto) % (0.0-3.0) Basophils (%) (Auto) % (0.0-2.0) Differential Total Cells Counted 100 Neutrophils % (Manual) 75 % (45-75) Lymphocytes % (Manual) 14 % (20-45) L Monocytes % (Manual) 10 % (1-10) Eosinophils % (Manual) 1 % (0-3) Basophils % (Manual) 0 % (0-2) Band Neutrophils 0 % (0-8) Platelet Estimate Adequate Platelet Morphology Normal Sodium Level 139 MMOL/L (136-145) Potassium Level 4.5 MMOL/L (3.5-5.1) Chloride Level 103 MMOL/L (98-107) Carbon Dioxide Level 25 MMOL/L (21-32) Anion Gap 11 mmol/L (5-15) Blood Urea Nitrogen 87 mg/dL (7-18) H Creatinine 8.6 MG/DL (0.55-1.30) H Estimat Glomerular Filtration Rate 4.7 mL/min (>60) Glucose Level 99 MG/DL (74-106) # Hemoglobin A1c 6.2 % (4.3-6.0) H Lactic Acid Level 1.60 mmol/L (0.4-2.0) 0.60 mmol/L (0.4-2.0) Calcium Level 7.6 MG/DL (8.5-10.1) L Calcium (Send out) Pending Phosphorus Level 6.2 MG/DL (2.5-4.9) H Magnesium Level 2.5 MG/DL (1.8-2.4) H Iron Level 29 ug/dL (50-175) L Total Iron Binding Capacity 307 ug/dL (250-450) Percent Iron Saturation 9 % (15-50) L Unsaturated Iron Binding 278 ug/dL (112-346) Ferritin 35 NG/ML (8-388) Pro-B-Type Natriuretic Peptide 99014 pg/mL (0-125) H Vitamin B12 Level 1184 PG/ML (193-986) H Vitamin D 25-Hydroxy Pending 25-Hydroxy Vitamin D2 Pending 25-Hydroxy Vitamin D3 Pending Thyroid Stimulating Hormone (TSH) 2.094 uiU/mL (0.358-3.740) Parathyroid Hormone (Intact) Pending Urine Color Pale yellow Urine Appearance Clear Urine pH 6 (4.5-8.0) Urine Specific [place] 1.010 (1.005-1.035) Urine Protein 4+ (NEGATIVE) H Urine Glucose (UA) 1+ (NEGATIVE) H Urine Ketones Negative (NEGATIVE) Urine Blood 4+ (NEGATIVE) H Urine Nitrite Negative (NEGATIVE) Urine Bilirubin Negative (NEGATIVE) Urine Urobilinogen Normal MG/DL (0.0-1.0) Urine Leukocyte Esterase 1+ (NEGATIVE) H Urine RBC 5-10 /HPF (0 - 2) H Urine WBC 0-2 /HPF (0 - 2) Urine Squamous Epithelial Cells Occasional /LPF Urine Bacteria None /HPF (NONE) Microbiology Date/Time Source Procedure Growth Status 01/08/20 16:54 Nasopharynx SARS-CoV-2 RdRp Gene Assay - Final Complete Height (Feet): 4 Height (Inches): 11.00 Weight (Pounds): 150 Medications Current Medications Medications (Trade) Dose Ordered Sig/[place] Route PRN Reason Start Time Stop Time Status Last Admin Dose Admin Acetaminophen (Tylenol) 650 mg Q6H PRN ORAL MILD/TEMP 01/07/20 23:15 7/22/20 23:14 01/08/20 15:02 Amlodipine Besylate (Norvasc) 10 mg DAILY ORAL 01/07/20 11:00 02/06/20 10:59 01/08/20 09:33 Aspirin (ASA) 81 mg DAILY ORAL 01/08/20 09:00 02/22/20 08:59 01/08/20 09:33 Dextrose (Dextrose 50%) 25 ml Q30M PRN IV Hypoglycemia 01/07/20 10:45 04/06/20 10:44 Dextrose (Dextrose 50%) 50 ml Q30M PRN IV Hypoglycemia 01/07/20 10:45 04/06/20 10:44 Docusate Sodium (Colace) 100 mg TWICE A DAY ORAL 01/08/20 09:00 02/07/20 08:59 01/08/20 09:33 Docusate Sodium (Colace) 100 mg TWICE A DAY ORAL 01/08/20 12:00 02/07/20 11:59 Hydralazine HCl (Apresoline) 10 mg Q4H PRN IV SBP > 160 01/07/20 14:45 04/06/20 14:44 01/07/20 14:43 Insulin Aspart (NovoLOG) Q4HR SUBQ 01/07/20 13:00 04/06/20 12:59 01/07/20 17:31 Iron Sucrose 100 mg/Sodium Chloride 60 ml @ 240 mls/hr BEDTIME IV 01/08/20 21:00 01/12/20 21:14 Ondansetron HCl (Zofran) 4 mg Q4H PRN IVP Nausea & Vomiting 01/08/20 00:15 02/07/20 00:14 01/08/20 10:40 Polyethylene Glycol (Miralax) 17 gm BEDTIME ORAL 01/08/20 21:00 02/07/20 20:59 Sevelamer Carbonate (Renvela) 800 mg THREE TIMES A DAY ORAL 01/08/20 09:00 04/07/20 08:59 01/08/20 09:34 Sodium Chloride 1,000 ml @ 75 mls/hr [id number] IV 01/08/20 12:00 02/07/20 11:59 01/08/20 15:03 Assessment/Plan Problem List: (1) Anemia Assessment & Plan: Transfuse PRN No active bleeding noted Trend H&H ICD Codes: D64.9 - Anemia, unspecified SNOMED: 596460441 (2) Renal insufficiency Assessment & Plan: [age]-year-old female identified to have significant abnormal labs on admission elevated creatinine and BUN electrolytes. Discussed with nephrology patient in need of dialysis. Family has been contacted for consent given patient's current mental status but currently have not been decision as to care plan and goals of care Patient needs HD access for hemodialysis if family she was wishes Will await consent will be available for placement of catheter to initiate hemodialysis Thank you for let me participate patient's care ICD Codes: N28.9 - Disorder of kidney and ureter, unspecified SNOMED: 812696586, 246171853 (3) Hypertension ICD Codes: I10 - Essential (primary) hypertension SNOMED: 59898727 (4) Hypoglycemia secondary to sulfonylurea ICD Codes: T38.3X1A - Poisoning by insulin and oral hypoglycemic [antidiabetic ] drugs, accidental (unintentional), initialencounter; E16.0 - Drug-induced hypoglycemia without coma SNOMED: 321517279, 124071371 Matheus Colvin Jan 08, 2020 17:57
[2020-01-08 18:20] LABS: ANION GAP 12 mmol/L (5-15); BLOOD UREA NITROGEN 97 mg/dL (7-18); CALCIUM 7.4 MG/DL (8.5-10.1); CARBON DIOXIDE 24 MMOL/L (21-32); CHLORIDE 104 MMOL/L (98-107); CREATININE 8.6 MG/DL (0.55-1.30); POTASSIUM 4.8 MMOL/L (3.5-5.1); SODIUM 140 MMOL/L (136-145)
[2020-01-08 20:00] VITALS: BP 143/59
[2020-01-08] MEDS ORDERED: Iron Sucrose 100 MG in NS 55 ML IV SCH (21:00)
[2020-01-08] MEDS ORDERED: Iron Sucrose 100 MG in NS 55 ML IVPB SCH (21:00)
[2020-01-08] MEDS ORDERED: Miralax 17gm pkt ORAL SCH (21:00)
[2020-01-09] VITALS (10 sets, daily range): BP systolic 140–209; BP diastolic 64–90
[2020-01-09] MEDS: NovoLOG Insulin Flexpen SUBQ SCH ×7 (01:00→20:46)
--- NOTE | 2020-01-09 08:44 | General Progress Note ---
Assessment/Plan Problem List: (1) Renal insufficiency ICD Codes: N28.9 - Disorder of kidney and ureter, unspecified SNOMED: 591671638, 358984920 (2) Anemia ICD Codes: D64.9 - Anemia, unspecified SNOMED: 052803193 (3) Hypertension ICD Codes: I10 - Essential (primary) hypertension SNOMED: 25260198 (4) Hypoglycemia secondary to sulfonylurea ICD Codes: T38.3X1A - Poisoning by insulin and oral hypoglycemic [antidiabetic ] drugs, accidental (unintentional), initialencounter; E16.0 - Drug-induced hypoglycemia without coma SNOMED: 393692212, 610905543 Status: stable Assessment/Plan: 64yo female with pmh of HTN, DM2 who presents with hypoglycemia,and found to have NAREN. # Symptomatic hypoglycemia - BG 30s - likely 2/2 increased dose of glipizide # Acute encephalopathy # Diabetes mellitus type 2 - Hold all hypoglycemic agents - SSI - s/p D10W gtt in ED - f/u Endo consult # NAREN vs NAREN on CKD - unclear baseline Cr. BUN 80s/Cr 7's. Pt likely with CKD 2/ 2 underlying diabetes and HTN # Hyperkalemia # Hyponatremia, hypervolemic ype - Renal consulted - Hold lisinopril - Kayexylate x1 today - Trend BMP/Mg/Phos - Check renal U/S: renal disease, no signs of post-obstruction - May need HD, plan for HD today after Eduardo placement -General surgery consult, for Eduardo # Fever - asymptomatic - blood cultures x 2, negative to date, follow-up - lactic acid within normal limits - f/u CXR negative - ordered COVID, negative # Anemia -Trend CBC -Check FOBT from stool -Iron panel -Transfuse for hemoglobin less than 7 -GI consult, appreciate recommendations # HTN - Hold lisinopril 2/2 NAREN - Amlodipine 10mg daily started DVT Prophylaxis: SCD, HSQ Code Status: Full Hospital Classification Declaration: Based on this initial evaluation, and depending on the patient's clinical course, I anticipate that this patient will require hospitalization for 2-3 days for hypoglycemia, NAREN, and close respiratory/hemodynamic monitoring. Disposition: Once the patient is stable to leave the hospital, I anticipate the patient will likely be discharged to the following environment: home with HH vs SNF I spent 38 minutes on this patient's case, and 35 minutes were dedicated to counseling and/or care coordination. Discussed with patient/family, nursing staff, renal regarding clinical status, treatment course, and disposition planning. I spent a total of more than 36 minutes in discussing case with patient, family members, staff including case manager specialist, nursing, and other specialists involved in the case as above.. Time of note may not reflect time of encounter. Subjective Date patient seen: Jan 09, 2020 Time patient seen: 12:36 Allergies: Coded Allergies: No Known Allergies (Unverified , 01/07/20) Subjective Patient states she is doing well and denies any fevers, chills, melena, hematochezia, abdominal pain, nausea, vomiting Afebrile COVID negative, blood cultures negative Off antibiotics DC IV fluids Plan for Eduardo placement and hemodialysis today Follow-up hemoglobin and chemistry Renal ultrasound gallstone, medical renal disease, no postobstructive nephropathy Chest x-ray mild pleural effusion no consolidation Objective Last 24 Hour Vital Signs Date Time Temp Pulse Resp B/P (MAP) Pulse Ox O2 Delivery O2 Flow Rate FiO2 01/09/20 08:00 97.5 61 19 174/73 (106) 97 01/09/20 04:00 72 01/09/20 04:00 98.7 79 19 145/64 (91) 95 01/09/20 00:00 79 01/09/20 00:00 99.1 74 18 140/78 (98) 96 01/08/20 21:19 98.9 01/08/20 21:00 Room Air 01/08/20 20:00 98.8 79 17 143/59 (87) 96 01/08/20 20:00 81 01/08/20 16:00 99.0 89 18 140/64 (89) 97 01/08/20 15:49 86 01/08/20 14:00 100.8 01/08/20 12:00 99.7 106 18 147/61 (89) 98 01/08/20 11:20 86 01/08/20 09:33 99 153/72 01/08/20 09:00 Room Air Intake and Output 01/08/20 01/09/20 19:00 07:00 Intake Total 675 ml 885 ml Output Total 400 ml 500 ml Balance 275 ml 385 ml Intake Oral 600 ml 360 ml IV Total 75 ml 525 ml Output Urine Total 400 ml 500 ml # Voids 1 Laboratory Tests 01/08/20 15:20: Sodium Level 140, Potassium Level 4.8, Chloride Level 104, Carbon Dioxide Level 24, Anion Gap 12, Blood Urea Nitrogen 97H, Creatinine 8.6H, Estimat Glomerular Filtration Rate 4.7, Glucose Level 100, Lactic Acid Level 0.60, Calcium Level 7.4L 01/08/20 16:57: Urine Color Pale yellow, Urine Appearance Clear, Urine pH 6, Urine Specific [place] 1.010, Urine Protein 4+H, Urine Glucose (UA) 1+H, Urine Ketones Negative , Urine Blood 4+H, Urine Nitrite Negative, Urine Bilirubin Negative, Urine Urobilinogen Normal, Urine Leukocyte Esterase 1+H, Urine RBC 5-10H, Urine WBC 0- 2, Urine Squamous Epithelial Cells Occasional, Urine Bacteria None Height (Feet): 4 Height (Inches): 11.00 Weight (Pounds): 149 Objective GENERAL: No acute distress, appears comfortable, alert HEENT: NCAT, non-icteric eyes, pupils PERRLA Neck: No cervical lymphadenopathy, trachea midline CV: Regular rate and rhythm, no murmurs rubs or gallops RESP: Clear to auscultation bilaterally, no wheezes/rhonchi/crackles ABD: soft, non-distended, no TTP EXT: Normal muscle tone, +5/5 muscle strength NEURO: No obvious deficits, alert and oriented x3 Ny Pittman DO Jan 09, 2020 08:44
[2020-01-09] MEDS: Aspirin Baby 81mg ORAL SCH (09:00)
[2020-01-09] MEDS: Docusate 100mg cap ORAL SCH ×2 (09:00→18:30)
[2020-01-09 09:40] LABS: HEMATOCRIT 19.1 % (37.0-47.0); MEAN CORPUSCULAR VOLUME 93 FL (80-99); PLATELET COUNT 323 K/UL (150-450); RED BLOOD COUNT 2.06 M/UL (4.20-5.40); RED CELL DISTRIBUTION WIDTH 12.7 % (11.6-14.8); WHITE BLOOD COUNT 11.2 K/UL (4.8-10.8)
[2020-01-09 09:48] LABS: HEMOGLOBIN 6.1 G/DL (12.0-16.0)
[2020-01-09 09:50] LABS: ANION GAP 11 mmol/L (5-15); BLOOD UREA NITROGEN 94 mg/dL (7-18); CALCIUM 7.4 MG/DL (8.5-10.1); CARBON DIOXIDE 25 MMOL/L (21-32); CHLORIDE 104 MMOL/L (98-107); CREATININE 8.7 MG/DL (0.55-1.30); POTASSIUM 4.5 MMOL/L (3.5-5.1); SODIUM 140 MMOL/L (136-145)
[2020-01-09 09:54] LABS: INR 0.9 (0.9-1.1)
--- NOTE | 2020-01-09 10:21 | General Progress Note ---
Assessment/Plan Problem List: (1) Hypertension ICD Codes: I10 - Essential (primary) hypertension SNOMED: 52809163 (2) Renal insufficiency ICD Codes: N28.9 - Disorder of kidney and ureter, unspecified SNOMED: 736340969, 192760517 (3) Anemia ICD Codes: D64.9 - Anemia, unspecified SNOMED: 263121884 (4) Hypoglycemia secondary to sulfonylurea ICD Codes: T38.3X1A - Poisoning by insulin and oral hypoglycemic [antidiabetic ] drugs, accidental (unintentional), initialencounter; E16.0 - Drug-induced hypoglycemia without coma SNOMED: 738520434, 936599071 Status: stable Assessment/Plan: iv iron colace and miralax add lactulose pending blood transfusion fu stool ob anemia most likely related to kidney DZ GI procedures if needed Subjective Allergies: Coded Allergies: No Known Allergies (Unverified , 01/07/20) Objective Last 24 Hour Vital Signs Date Time Temp Pulse Resp B/P (MAP) Pulse Ox O2 Delivery O2 Flow Rate FiO2 01/09/20 09:00 61 174/73 01/09/20 09:00 Room Air 01/09/20 08:00 97.5 61 19 174/73 (106) 97 01/09/20 04:00 72 01/09/20 04:00 98.7 79 19 145/64 (91) 95 01/09/20 00:00 79 01/09/20 00:00 99.1 74 18 140/78 (98) 96 01/08/20 21:19 98.9 01/08/20 21:00 Room Air 01/08/20 20:00 98.8 79 17 143/59 (87) 96 01/08/20 20:00 81 01/08/20 16:00 99.0 89 18 140/64 (89) 97 01/08/20 15:49 86 01/08/20 14:00 100.8 01/08/20 12:00 99.7 106 18 147/61 (89) 98 01/08/20 11:20 86 Intake and Output 01/08/20 01/09/20 19:00 07:00 Intake Total 675 ml 885 ml Output Total 400 ml 500 ml Balance 275 ml 385 ml Intake Oral 600 ml 360 ml IV Total 75 ml 525 ml Output Urine Total 400 ml 500 ml # Voids 1 Laboratory Tests 01/08/20 15:20: Sodium Level 140, Potassium Level 4.8, Chloride Level 104, Carbon Dioxide Level 24, Anion Gap 12, Blood Urea Nitrogen 97H, Creatinine 8.6H, Estimat Glomerular Filtration Rate 4.7, Glucose Level 100, Lactic Acid Level 0.60, Calcium Level 7.4L 01/08/20 16:57: Urine Color Pale yellow, Urine Appearance Clear, Urine pH 6, Urine Specific [place] 1.010, Urine Protein 4+H, Urine Glucose (UA) 1+H, Urine Ketones Negative , Urine Blood 4+H, Urine Nitrite Negative, Urine Bilirubin Negative, Urine Urobilinogen Normal, Urine Leukocyte Esterase 1+H, Urine RBC 5-10H, Urine WBC 0- 2, Urine Squamous Epithelial Cells Occasional, Urine Bacteria None 01/09/20 09:25: Sodium Level 140, Potassium Level 4.5, Chloride Level 104, Carbon Dioxide Level 25, Anion Gap 11, Blood Urea Nitrogen 94H, Creatinine 8.7H, Estimat Glomerular Filtration Rate 4.6, Glucose Level 103, Calcium Level 7.4L, White Blood Count 11.2H, Red Blood Count 2.06L, Hemoglobin 6.1*L, Hematocrit 19.1L, Mean Corpuscular Volume 93, Mean Corpuscular Hemoglobin 29.7, Mean Corpuscular Hemoglobin Concent 31.9L, Red Cell Distribution Width 12.7, Platelet Count 323, Mean Platelet Volume 5.2L, Neutrophils (%) (Auto) , Lymphocytes (%) (Auto) , Monocytes (%) (Auto) , Eosinophils (%) (Auto) , Basophils (%) (Auto) , Neutrophils % (Manual) [Pending], Lymphocytes % (Manual) [Pending], Platelet Estimate [Pending], Platelet Morphology [Pending], Prothrombin Time 10.4, Prothromb Time International Ratio 0.9, Activated Partial Thromboplast Time 27, Magnesium Level 2.3 Height (Feet): 4 Height (Inches): 11.00 Weight (Pounds): 149 General Appearance: alert EENT: normal ENT inspection Neck: supple Cardiovascular: normal rate Respiratory/Chest: decreased breath sounds Abdomen: normal bowel sounds, non tender, soft Extremities: non-tender Alejandro Chamberlain MD Jan 09, 2020 10:21
--- NOTE | 2020-01-09 10:23 | Diagnostic Imaging Report ---
EXAM: ULTRASOUND Venous Duplex Scan Yousif Leg CLINICAL HISTORY: Leg pain and edema. COMPARISON: None TECHNIQUE: Doppler examination include grayscale images obtained with and without compression, and color and spectral doppler analysis. FINDINGS: Doppler examination shows normal spontaneity, phasicity, compressibility in the bilateral lower extremities. There is no thrombus identified by grayscale. Normal color and spectral flow is identified. There is no evidence of valvular incompetency or insufficiency. IMPRESSION: UNREMARKABLE VENOUS DUPLEX.
[2020-01-09] MEDS ORDERED: Lactulose 20gm/30ml UDC ORAL SCH (10:30)
[2020-01-09] MEDS ORDERED: Lidocaine 1% Plain 30 ml INJ PRN (12:47)
[2020-01-09] MEDS ORDERED: Heparin1,000 units/500ml Premix(Conc:2 units/ml) IV PRN (12:48)
--- NOTE | 2020-01-09 13:30 | Nephrology Progress Note ---
Assessment/Plan Plan #NAREN vs NAREN On CKD-- ? ESRD due to DM and HTN- ua with 4+ proteinuria #Hyperkalemia- improved #Hypoglycemia #hyperphosphetemia #HTN- accelerated #DM #HLD #anemia of CKD? - HD today after line placement - prbc transfusion with HD - placed mcgrath - check renal US-> echogenic kidneys - prbc transfusion - IV iron - amlodipine 10mg daily - hydralazine PRN for now - sevelamer 800mgTID - PTH/vitamin D - check BMP tonight - avoid nephrotoxins - strict I&Os time spent 70 min, greater than 50% on care coordination and counseling. Subjective ROS Limited/Unobtainable: No Constitutional: Reports: malaise, weakness HEENT: Denies: no symptoms, eye pain, blurred vision, tearing, double vision, ear pain, ear discharge, nose pain, nose congestion, throat pain, throat swelling, mouth pain, mouth swelling, other Genitourinary: Denies: no symptoms, burning, discharge, frequency, flank pain, hematuria, incontinence, pain, urgency, other Neurologic/Psychiatric: Denies: no symptoms, anxiety, depressed, emotional problems, headache, numbness, paresthesia, pre-existing deficit, seizure, tingling, tremors, weakness, other Subjective BUN and cr risin feeling nausea oliguric plan for to start HD today after line placement hemoglobin low Martina US:IMPRESSION: ECHOGENIC KIDNEYS REFLECTING MEDICAL RENAL DISEASE. NO OBSTRUCTIVE UROPATHY. GALLSTONE. Objective Objective Last 24 Hour Vital Signs Date Time Temp Pulse Resp B/P (MAP) Pulse Ox O2 Delivery O2 Flow Rate FiO2 01/09/20 12:00 98.5 81 20 175/73 (107) 96 01/09/20 12:00 79 01/09/20 09:00 61 174/73 01/09/20 09:00 Room Air 01/09/20 08:00 97.5 61 19 174/73 (106) 97 01/09/20 07:29 77 01/09/20 04:00 72 01/09/20 04:00 98.7 79 19 145/64 (91) 95 01/09/20 00:00 79 01/09/20 00:00 99.1 74 18 140/78 (98) 96 01/08/20 21:19 98.9 01/08/20 21:00 Room Air 01/08/20 20:00 98.8 79 17 143/59 (87) 96 01/08/20 20:00 81 01/08/20 16:00 99.0 89 18 140/64 (89) 97 01/08/20 15:49 86 01/08/20 14:00 100.8 Intake and Output 01/08/20 01/09/20 19:00 07:00 Intake Total 675 ml 885 ml Output Total 400 ml 500 ml Balance 275 ml 385 ml Intake Oral 600 ml 360 ml IV Total 75 ml 525 ml Output Urine Total 400 ml 500 ml # Voids 1 Laboratory Tests 01/08/20 15:20: Sodium Level 140, Potassium Level 4.8, Chloride Level 104, Carbon Dioxide Level 24, Anion Gap 12, Blood Urea Nitrogen 97H, Creatinine 8.6H, Estimat Glomerular Filtration Rate 4.7, Glucose Level 100, Lactic Acid Level 0.60, Calcium Level 7.4L 01/08/20 16:57: Urine Color Pale yellow, Urine Appearance Clear, Urine pH 6, Urine Specific [place] 1.010, Urine Protein 4+H, Urine Glucose (UA) 1+H, Urine Ketones Negative , Urine Blood 4+H, Urine Nitrite Negative, Urine Bilirubin Negative, Urine Urobilinogen Normal, Urine Leukocyte Esterase 1+H, Urine RBC 5-10H, Urine WBC 0- 2, Urine Squamous Epithelial Cells Occasional, Urine Bacteria None 01/09/20 09:25: Sodium Level 140, Potassium Level 4.5, Chloride Level 104, Carbon Dioxide Level 25, Anion Gap 11, Blood Urea Nitrogen 94H, Creatinine 8.7H, Estimat Glomerular Filtration Rate 4.6, Glucose Level 103, Calcium Level 7.4L, White Blood Count 11.2H, Red Blood Count 2.06L, Hemoglobin 6.1*L, Hematocrit 19.1L, Mean Corpuscular Volume 93, Mean Corpuscular Hemoglobin 29.7, Mean Corpuscular Hemoglobin Concent 31.9L, Red Cell Distribution Width 12.7, Platelet Count 323, Mean Platelet Volume 5.2L, Neutrophils (%) (Auto) , Lymphocytes (%) (Auto) , Monocytes (%) (Auto) , Eosinophils (%) (Auto) , Basophils (%) (Auto) , Differential Total Cells Counted 100, Neutrophils % (Manual) 76H, Lymphocytes % (Manual) 14L, Monocytes % (Manual) 3, Eosinophils % (Manual) 6H, Basophils % ( Manual) 1, Band Neutrophils 0, Platelet Estimate Adequate, Platelet Morphology Normal, Hypochromasia 4+, Anisocytosis 1+, Prothrombin Time 10.4, Prothromb Time International Ratio 0.9, Activated Partial Thromboplast Time 27, Magnesium Level 2.3 Height (Feet): 4 Height (Inches): 11.00 Weight (Pounds): 149 Anand Cannon M.D. Jan 09, 2020 13:30
--- NOTE | 2020-01-09 13:44 | Pre-Procedure Note/Attestation ---
Pre-Procedure Note/Attestation Complete Prior to Procedure Planned Procedure: not applicable Procedure Narrative: dialysis catheter placement non-tunneled Indications for Procedure Pre-Operative Diagnosis: need dialysis, Attestation informed consent obtained by primary team prior to the procedure, confirmed just before start of procedure. Fritz Reynolds M.D. Jan 09, 2020 13:44
--- NOTE | 2020-01-09 14:44 | Surgery Progress Note ---
Surgery Progress Note Subjective Additional Comments family consented to line placement late last night anemia transfuse with HD line placed right IJ temp HD Objective Last 24 Hour Vital Signs Date Time Temp Pulse Resp B/P (MAP) Pulse Ox O2 Delivery O2 Flow Rate FiO2 01/09/20 14:13 88 15 2.0 01/09/20 14:05 88 15 183/90 (121) 01/09/20 14:05 98.5 92 17 187/90 (122) 93 01/09/20 13:53 93 17 01/09/20 13:39 92 18 187/90 (122) 93 01/09/20 12:00 98.5 81 20 175/73 (107) 96 01/09/20 12:00 79 01/09/20 09:00 61 174/73 01/09/20 09:00 Room Air 01/09/20 08:00 97.5 61 19 174/73 (106) 97 01/09/20 07:29 77 01/09/20 04:00 72 01/09/20 04:00 98.7 79 19 145/64 (91) 95 01/09/20 00:00 79 01/09/20 00:00 99.1 74 18 140/78 (98) 96 01/08/20 21:19 98.9 01/08/20 21:00 Room Air 01/08/20 20:00 98.8 79 17 143/59 (87) 96 01/08/20 20:00 81 01/08/20 16:00 99.0 89 18 140/64 (89) 97 01/08/20 15:49 86 I&O Intake and Output 01/08/20 01/09/20 19:00 07:00 Intake Total 675 ml 885 ml Output Total 400 ml 500 ml Balance 275 ml 385 ml Intake Oral 600 ml 360 ml IV Total 75 ml 525 ml Output Urine Total 400 ml 500 ml # Voids 1 Dressing: dry Wound: clean Cardiovascular: RSR Respiratory: clear Abdomen: soft, non-tender, present bowel sounds Extremities: edema, no cyanosis Laboratory Tests Test 01/08/20 15:20 01/08/20 16:57 01/09/20 09:25 01/09/20 12:15 Sodium Level 140 MMOL/L (136-145) 140 MMOL/L (136-145) Potassium Level 4.8 MMOL/L (3.5-5.1) 4.5 MMOL/L (3.5-5.1) Chloride Level 104 MMOL/L (98-107) 104 MMOL/L (98-107) Carbon Dioxide Level 24 MMOL/L (21-32) 25 MMOL/L (21-32) Anion Gap 12 mmol/L (5-15) 11 mmol/L (5-15) Blood Urea Nitrogen 97 mg/dL (7-18) H 94 mg/dL (7-18) H Creatinine 8.6 MG/DL (0.55-1.30) H 8.7 MG/DL (0.55-1.30) H Estimat Glomerular Filtration Rate 4.7 mL/min (>60) 4.6 mL/min (>60) Glucose Level 100 MG/DL (74-106) 103 MG/DL (74-106) Lactic Acid Level 0.60 mmol/L (0.4-2.0) Calcium Level 7.4 MG/DL (8.5-10.1) L 7.4 MG/DL (8.5-10.1) L Urine Color Pale yellow Urine Appearance Clear Urine pH 6 (4.5-8.0) Urine Specific [place] 1.010 (1.005-1.035) Urine Protein 4+ (NEGATIVE) H Urine Glucose (UA) 1+ (NEGATIVE) H Urine Ketones Negative (NEGATIVE) Urine Blood 4+ (NEGATIVE) H Urine Nitrite Negative (NEGATIVE) Urine Bilirubin Negative (NEGATIVE) Urine Urobilinogen Normal MG/DL (0.0-1.0) Urine Leukocyte Esterase 1+ (NEGATIVE) H Urine RBC 5-10 /HPF (0 - 2) H Urine WBC 0-2 /HPF (0 - 2) Urine Squamous Epithelial Cells Occasional /LPF Urine Bacteria None /HPF (NONE) White Blood Count 11.2 K/UL (4.8-10.8) H Red Blood Count 2.06 M/UL (4.20-5.40) L Hemoglobin 6.1 G/DL (12.0-16.0) *L Hematocrit 19.1 % (37.0-47.0) L Mean Corpuscular Volume 93 FL (80-99) Mean Corpuscular Hemoglobin 29.7 PG (27.0-31.0) Mean Corpuscular Hemoglobin Concent 31.9 G/DL (32.0-36.0) L Red Cell Distribution Width 12.7 % (11.6-14.8) Platelet Count 323 K/UL (150-450) Mean Platelet Volume 5.2 FL (6.5-10.1) L Neutrophils (%) (Auto) % (45.0-75.0) Lymphocytes (%) (Auto) % (20.0-45.0) Monocytes (%) (Auto) % (1.0-10.0) Eosinophils (%) (Auto) % (0.0-3.0) Basophils (%) (Auto) % (0.0-2.0) Differential Total Cells Counted 100 Neutrophils % (Manual) 76 % (45-75) H Lymphocytes % (Manual) 14 % (20-45) L Monocytes % (Manual) 3 % (1-10) Eosinophils % (Manual) 6 % (0-3) H Basophils % (Manual) 1 % (0-2) Band Neutrophils 0 % (0-8) Platelet Estimate Adequate Platelet Morphology Normal Hypochromasia 4+ Anisocytosis 1+ Prothrombin Time 10.4 SEC (9.30-11.50) Prothromb Time International Ratio 0.9 (0.9-1.1) Activated Partial Thromboplast Time 27 SEC (23-33) Magnesium Level 2.3 MG/DL (1.8-2.4) Stool Occult Blood Pending Plan Problems: (1) Anemia Assessment & Plan: Transfuse PRN No active bleeding noted Trend H&H (2) Renal insufficiency Assessment & Plan: [age]-year-old female identified to have significant abnormal labs on admission elevated creatinine and BUN electrolytes. Discussed with nephrology patient in need of dialysis. Family has been contacted for consent given patient's current mental status but currently have not been decision as to care plan and goals of care Patient needs HD access for hemodialysis if family she was wishes Will await consent will be available for placement of catheter to initiate hemodialysis Thank you for let me participate patient's care family consented to line placement anemia transfuse with HD line placed right IJ temp HD (3) Hypertension (4) Hypoglycemia secondary to sulfonylurea Matheus Colvin Jan 09, 2020 14:44
--- NOTE | 2020-01-09 15:06 | Diagnostic Imaging Report ---
Indication: Renal insufficiency. Patient requires hemodialysis. Findings: After the indications, procedure, risks, complications, and alternatives of the procedure were explained, written informed consent was obtained. The neck was prepped and draped in the usual sterile fashion. All elements of maximal sterile barrier technique were followed including usage of a cap, mask, sterile gown, sterile gloves, hand hygiene and a large sterile sheet. 1% lidocaine was used to anesthetize the skin. Sonographic evaluation was performed demonstrating a patent and compressible right internal jugular vein. Access was obtained under real-time ultrasound guidance using an 18 gauge needle and a digital image was saved in archive. An 0.035 wire was then advanced into the vein. Needle exchanged for a dilator. A temporary hemodialysis catheter was then advanced over the wire. Wire was removed. Catheter was secured to the skin using 2-0 Prolene suture. Both ports aspirate and flush easily. Impression: Successful placement of right transjugular temporary dialysis catheter. Catheter cleared for immediate use.
--- NOTE | 2020-01-09 18:30 | Consultation ---
DATE OF CONSULTATION: 01/09/2020 ENDOCRINOLOGY CONSULTATION CONSULTING PHYSICIAN: Oracio Story MD. REFERRING PHYSICIAN: Ny Pittman DO. REASON FOR CONSULTATION: Hypoglycemia. HISTORY OF PRESENT ILLNESS: The patient is a 64-year-old female with history of diabetes and chronic kidney disease, who presented to the hospital with symptomatic hypoglycemia. The patient had glucose in the mid 30s. She is on glipizide for diabetes management and improved with dextrose. I was called to manage diabetes. Hemoglobin A1c is 6.2. On presentation, the patient was noted to have a creatinine of 8.6 with BUN of 97. The patient was not aware of kidney issue. PAST MEDICAL HISTORY: Diabetes. PAST SURGICAL HISTORY: None. FAMILY HISTORY: Diabetes. SOCIAL HISTORY: No smoking, alcohol, or drug use. REVIEW OF SYSTEMS: As per HPI. LABORATORY DATA: Sodium 140, potassium 4.8, chloride 104, bicarb 25, BUN 97, creatinine 8.6. A1c 6.2. WBC 11, hemoglobin 6, hematocrit 20, platelets 351,000. PHYSICAL EXAMINATION: VITAL SIGNS: Blood pressure 145/64, heart rate 72, temperature 98.4, respiratory rate 19. HEENT: Pupils are equal and reactive to light. Sclerae are anicteric. NECK: No JVD. HEART: Regular. LUNGS: Clear. ABDOMEN: Positive bowel sounds. EXTREMITIES: Positive for edema. DIAGNOSES: 1. Diabetes, out of control with hypoglycemia secondary to glipizide. 2. Renal failure. DISCUSSION: 1. Hold glipizide and do not resume. 2. Continue glucose monitoring before meals and at bedtime. 3. Hypoglycemia protocol. 4. Once hypoglycemia resolves, I recommend to start the patient on Januvia 25 mg daily. 5. I will follow her during the hospital stay. Thank you for the courtesy of this consultation. Oracio Story M.D. DR: ALYSIA/GARETT JOB#: [id number] CC: PATRICIA
[2020-01-09] MEDS: Miralax 17gm pkt ORAL SCH (20:31)
[2020-01-09] MEDS: Iron Sucrose 100 MG in NS 55 ML IV SCH (20:31)
[2020-01-09] MEDS: HydrALAZINE 25mg tab ORAL PRN (20:45)
[2020-01-10] VITALS (7 sets, daily range): BP systolic 145–205; BP diastolic 57–94
[2020-01-10] MEDS: NovoLOG Insulin Flexpen SUBQ SCH ×5 (00:45→20:33)
[2020-01-10] MEDS: HydrALAZINE 25mg tab ORAL PRN ×2 (00:46→04:17)
[2020-01-10 05:49] LABS: BASOPHILS % (AUTO) 0.6 % (0.0-2.0); EOSINOPHILS % (AUTO) 1.6 % (0.0-3.0); HEMATOCRIT 28.4 % (37.0-47.0); HEMOGLOBIN 9.1 G/DL (12.0-16.0); LYMPHOCYTES % (AUTO) 10.2 % (20.0-45.0); MEAN CORPUSCULAR VOLUME 92 FL (80-99); MONOCYTES % (AUTO) 11.6 % (1.0-10.0); NEUTROPHILS % (AUTO) 76.1 % (45.0-75.0); PLATELET COUNT 307 K/UL (150-450); RED BLOOD COUNT 3.08 M/UL (4.20-5.40); RED CELL DISTRIBUTION WIDTH 12.8 % (11.6-14.8); WHITE BLOOD COUNT 11.9 K/UL (4.8-10.8)
[2020-01-10 06:10] LABS: ANION GAP 8 mmol/L (5-15); BLOOD UREA NITROGEN 39 mg/dL (7-18); CALCIUM 7.8 MG/DL (8.5-10.1); CARBON DIOXIDE 30 MMOL/L (21-32); CHLORIDE 102 MMOL/L (98-107); PHOSPHORUS 5.2 MG/DL (2.5-4.9); POTASSIUM 3.3 MMOL/L (3.5-5.1); SODIUM 140 MMOL/L (136-145)
--- NOTE | 2020-01-10 06:49 | Consultation ---
History of Present Illness General Chief Complaint: Abnormal Labs Present Illness Allergies: Coded Allergies: No Known Allergies (Unverified , 01/07/20) Medication History Scheduled Aspirin* (Aspirin*), 81 MG ORAL DAILY, (Reported) Lisinopril (Lisinopril*), 20 MG ORAL DAILY, (Reported) Miscellaneous Medications Glipizide (Glipizide Er), 2.5 MG PO, (Reported) Patient History Healthcare decision maker Resuscitation status Advanced Directive on File Physical Exam Last 24 Hour Vital Signs Date Time Temp Pulse Resp B/P (MAP) Pulse Ox O2 Delivery O2 Flow Rate FiO2 01/10/20 06:44 87 198/86 (123) 01/10/20 04:17 199/88 01/10/20 04:00 99.5 85 22 199/88 (125) 97 01/10/20 00:46 205/94 01/10/20 00:39 98.8 93 20 205/94 (131) 94 01/09/20 21:00 Room Air 01/09/20 20:45 209/89 01/09/20 20:30 98.1 89 18 209/89 (129) 95 01/09/20 16:32 97.5 85 18 159/80 (106) 95 01/09/20 16:10 Room Air 01/09/20 14:13 88 15 2.0 01/09/20 14:05 88 15 183/90 (121) 01/09/20 14:05 98.5 92 17 187/90 (122) 93 01/09/20 13:53 93 17 01/09/20 13:39 92 18 187/90 (122) 93 01/09/20 12:00 98.5 81 20 175/73 (107) 96 01/09/20 12:00 79 01/09/20 09:00 61 174/73 01/09/20 09:00 Room Air 01/09/20 08:00 97.5 61 19 174/73 (106) 97 01/09/20 07:29 77 Intake and Output 01/09/20 01/10/20 19:00 07:00 Intake Total 60 ml Output Total 3700 ml Balance -3640 ml IV Total 60 ml Output Urine Total 700 ml Hemodialysis UF 3000 ml # Bowel Movements 1 2 Laboratory Tests Test 01/09/20 09:25 01/09/20 12:15 01/10/20 05:15 White Blood Count 11.2 K/UL (4.8-10.8) H 11.9 K/UL (4.8-10.8) H Red Blood Count 2.06 M/UL (4.20-5.40) L 3.08 M/UL (4.20-5.40) L Hemoglobin 6.1 G/DL (12.0-16.0) *L 9.1 G/DL (12.0-16.0) #L Hematocrit 19.1 % (37.0-47.0) L 28.4 % (37.0-47.0) #L Mean Corpuscular Volume 93 FL (80-99) 92 FL (80-99) Mean Corpuscular Hemoglobin 29.7 PG (27.0-31.0) 29.5 PG (27.0-31.0) Mean Corpuscular Hemoglobin Concent 31.9 G/DL (32.0-36.0) L 32.1 G/DL (32.0-36.0) Red Cell Distribution Width 12.7 % (11.6-14.8) 12.8 % (11.6-14.8) Platelet Count 323 K/UL (150-450) 307 K/UL (150-450) Mean Platelet Volume 5.2 FL (6.5-10.1) L 6.0 FL (6.5-10.1) L Neutrophils (%) (Auto) % (45.0-75.0) 76.1 % (45.0-75.0) H Lymphocytes (%) (Auto) % (20.0-45.0) 10.2 % (20.0-45.0) L Monocytes (%) (Auto) % (1.0-10.0) 11.6 % (1.0-10.0) H Eosinophils (%) (Auto) % (0.0-3.0) 1.6 % (0.0-3.0) Basophils (%) (Auto) % (0.0-2.0) 0.6 % (0.0-2.0) Differential Total Cells Counted 100 Neutrophils % (Manual) 76 % (45-75) H Lymphocytes % (Manual) 14 % (20-45) L Monocytes % (Manual) 3 % (1-10) Eosinophils % (Manual) 6 % (0-3) H Basophils % (Manual) 1 % (0-2) Band Neutrophils 0 % (0-8) Platelet Estimate Adequate Platelet Morphology Normal Hypochromasia 4+ Anisocytosis 1+ Prothrombin Time 10.4 SEC (9.30-11.50) Prothromb Time International Ratio 0.9 (0.9-1.1) Activated Partial Thromboplast Time 27 SEC (23-33) Sodium Level 140 MMOL/L (136-145) 140 MMOL/L (136-145) Potassium Level 4.5 MMOL/L (3.5-5.1) 3.3 MMOL/L (3.5-5.1) L Chloride Level 104 MMOL/L (98-107) 102 MMOL/L (98-107) Carbon Dioxide Level 25 MMOL/L (21-32) 30 MMOL/L (21-32) Anion Gap 11 mmol/L (5-15) 8 mmol/L (5-15) Blood Urea Nitrogen 94 mg/dL (7-18) H 39 mg/dL (7-18) H Creatinine 8.7 MG/DL (0.55-1.30) H 5.0 MG/DL (0.55-1.30) H Estimat Glomerular Filtration Rate 4.6 mL/min (>60) 8.7 mL/min (>60) Glucose Level 103 MG/DL (74-106) 120 MG/DL (74-106) H Calcium Level 7.4 MG/DL (8.5-10.1) L 7.8 MG/DL (8.5-10.1) L Magnesium Level 2.3 MG/DL (1.8-2.4) 2.1 MG/DL (1.8-2.4) Hepatitis B Surface Antigen Pending Stool Occult Blood Pending Phosphorus Level 5.2 MG/DL (2.5-4.9) H Height (Feet): 4 Height (Inches): 11.00 Weight (Pounds): 149 Medications Current Medications Medications (Trade) Dose Ordered Sig/[place] Route PRN Reason Start Time Stop Time Status Last Admin Dose Admin Acetaminophen (Tylenol) 650 mg Q6H PRN ORAL MILD/TEMP 01/09/20 16:34 02/08/20 16:33 Amlodipine Besylate (Norvasc) 10 mg DAILY ORAL 01/10/20 09:00 02/06/20 10:59 Aspirin (ASA) 81 mg DAILY ORAL 01/10/20 09:00 02/22/20 08:59 Chlorhexidine Gluconate (Barbara-Hex 2%) 1 applic DAILY@2000 TOPIC 01/10/20 20:00 04/09/20 19:59 Clonidine HCl (Catapres Tab) 0.1 mg Q2H PRN ORAL For High Blood Pressure 01/10/20 06:15 04/09/20 06:14 Dextrose (Dextrose 50%) 25 ml Q30M PRN IV Hypoglycemia 01/09/20 16:35 04/08/20 16:34 Dextrose (Dextrose 50%) 50 ml Q30M PRN IV Hypoglycemia 01/09/20 16:35 04/08/20 16:34 Docusate Sodium (Colace) 100 mg TWICE A DAY ORAL 01/09/20 18:00 02/07/20 11:59 Hydralazine HCl (Apresoline) 25 mg Q4H PRN ORAL For High Blood Pressure 01/09/20 20:15 04/08/20 20:14 01/10/20 04:17 Insulin Aspart (NovoLOG) Q4HR SUBQ 01/09/20 17:00 04/06/20 12:59 Iron Sucrose 100 mg/Sodium Chloride 60 ml @ 240 mls/hr BEDTIME IV 01/09/20 21:00 01/12/20 21:14 01/09/20 20:31 Lactulose (Cephulac) 20 gm DAILY ORAL 01/10/20 09:00 02/08/20 10:29 Ondansetron HCl (Zofran) 4 mg Q4H PRN IVP Nausea & Vomiting 01/09/20 16:35 02/08/20 16:34 Polyethylene Glycol (Miralax) 17 gm BEDTIME ORAL 01/09/20 21:00 02/07/20 20:59 01/09/20 20:31 Sevelamer Carbonate (Renvela) 800 mg THREE TIMES A DAY ORAL 01/09/20 18:00 04/07/20 08:59 01/09/20 20:30 Assessment/Plan Assessment/Plan: Hematology Consultation REQ MD: Betsy Pittman RFC: Severe iron deficiency anemia DOS 01/10/2020 ID 64y/o female with pmh of HTN, DM2 who presents with hypoglycemia. Pt noted to be confused and BG in 30s, EMS called, given D50 amp with improvement. Of note pt recently had doses of glipizide increased for the past few days. Denies f/c, n/v, d/c, chests pain, SOB, abd pain, cough. In ED, pt started on D10W gtt. Labs also noteable for Cr 7's, BUN 80. Unclear baseline Cr/BUN. Pt denies h/o renal disease. Has been seen by renal, surgery, and gi, iron has been started, may need epo, heme consulted PMH: as above SH: lives at home w/ family. Denies T/E/D FMH: denies Allergies: No Known Allergies (Unverified , 01/07/20) COVID-19 Screening Contact w/high risk pt: No Recent Travel to affected area: No Experienced COVID-19 symptoms?: No Scheduled Aspirin* (Aspirin*), 81 MG ORAL DAILY, (Reported) Lisinopril (Lisinopril*), 20 MG ORAL DAILY, (Reported) Home Medications Glipizide (Glipizide Er), 2.5 MG PO, (Reported) Review of Systems ROS Narrative CONSTITUTIONAL: No weight loss, fever, chills, weakness or fatigue. HEENT: Eyes: No visual loss, blurred vision, double vision or yellow sclerae. SKIN: No rash or itching. CARDIOVASCULAR: No chest pain, chest pressure or chest discomfort. RESPIRATORY: No shortness of breath, cough or sputum. GASTROINTESTINAL: No anorexia, nausea, vomiting or diarrhea. No abdominal pain or blood. NEUROLOGICAL: No headache, dizziness, syncope, paralysis, ataxia MUSCULOSKELETAL: No muscle, back pain, joint pain or stiffness. HEMATOLOGIC: No anemia, bleeding or bruising. LYMPHATICS: No enlarged nodes. No history of splenectomy. PSYCHIATRIC: No history of depression or anxiety. ENDOCRINOLOGIC: No reports of sweating, cold or heat intolerance. ALLERGIES: No history of asthma, hives, eczema or rhinitis. Physical Exam General: alert, cooperative, no distress Heent: normocephalic, without obvious abnormality Neck: supple, symmetrical, trachea midline Lungs: clear to auscultation bilaterally Heart: regular rate and rhythm, S1 Abdomen: soft, non-tender, non-distended Extremities: extremities normal Pulses: 2+ and symmetric Skin: skin color, texture, turgor normal Neurologic: grossly normal, no focal deficits Labs noted Imaging reviewed Assessment and Recs # Anemia due to severe iron deficiency, ferritin of only 35 --> r/o malignancy, slow gi bleed, cea ordered --> as per gi recs, endoscopy as needed --> occult blood prn --> s/p 1 unit prbc 01/08 --> iv iron has been started x 5 days --> epogen consider to start given renal status after ferritin is >500 # NAREN On CKD-- ? ESRD due to DM and HTN- ua with 4+ proteinuria --> per renal, line placement --> hd prn basis # Hyperkalemia- improved # Hypoglycemia # hyperphosphetemia # HTN- accelerated --> cards prn # DM # HLD Appreciate consultation and dw Micheal Chowdary MD Jan 10, 2020 06:48
--- NOTE | 2020-01-10 06:54 | General Progress Note ---
Assessment/Plan Problem List: (1) Renal insufficiency ICD Codes: N28.9 - Disorder of kidney and ureter, unspecified SNOMED: 612641781, 684750168 (2) Hypertension ICD Codes: I10 - Essential (primary) hypertension SNOMED: 33778166 (3) Hypoglycemia secondary to sulfonylurea ICD Codes: T38.3X1A - Poisoning by insulin and oral hypoglycemic [antidiabetic ] drugs, accidental (unintentional), initialencounter; E16.0 - Drug-induced hypoglycemia without coma SNOMED: 145428732, 559736454 (4) Anemia ICD Codes: D64.9 - Anemia, unspecified SNOMED: 357897693 Status: stable Assessment/Plan: continue to keep off oral diabetic agents change glucose monitoring to ac / hs hypoglycemia protocol in order Subjective Allergies: Coded Allergies: No Known Allergies (Unverified , 01/07/20) Subjective events noted glucose values stable without recurrence of hypoglycemia on clear liquid diet glucose monitoring is every 4 hours Item Value Date Time Bedside Blood Glucose 125 mg/dl H 01/10/20 0421 Bedside Blood Glucose 131 mg/dl H 01/10/20 0045 Bedside Blood Glucose 102 mg/dl 01/09/20 2046 Bedside Blood Glucose 100 mg/dl 01/09/20 1642 Bedside Blood Glucose 97 mg/dl 01/09/20 1300 Bedside Blood Glucose 88 mg/dl 01/09/20 0900 Bedside Blood Glucose 88 mg/dl 01/09/20 0500 Bedside Blood Glucose 95 mg/dl 01/09/20 0100 Objective Last 24 Hour Vital Signs Date Time Temp Pulse Resp B/P (MAP) Pulse Ox O2 Delivery O2 Flow Rate FiO2 01/10/20 06:48 198/86 01/10/20 06:44 87 198/86 (123) 01/10/20 04:17 199/88 01/10/20 04:00 99.5 85 22 199/88 (125) 97 01/10/20 00:46 205/94 01/10/20 00:39 98.8 93 20 205/94 (131) 94 01/09/20 21:00 Room Air 01/09/20 20:45 209/01/09/20 20:30 98.1 89 18 209/ (129) 95 01/09/20 16:32 97.5 85 18 159/80 (106) 95 01/09/20 16:10 Room Air 01/09/20 14:13 88 15 2.0 01/09/20 14:05 88 15 183/90 (121) 01/09/20 14:05 98.5 92 17 187/90 (122) 93 01/09/20 13:53 93 17 01/09/20 13:39 92 18 187/90 (122) 93 01/09/20 12:00 98.5 81 20 175/73 (107) 96 01/09/20 12:00 79 01/09/20 09:00 61 174/73 01/09/20 09:00 Room Air 01/09/20 08:00 97.5 61 19 174/73 (106) 97 01/09/20 07:29 77 Intake and Output 01/09/20 01/10/20 19:00 07:00 Intake Total 60 ml Output Total 3700 ml Balance -3640 ml IV Total 60 ml Output Urine Total 700 ml Hemodialysis UF 3000 ml # Bowel Movements 1 2 Laboratory Tests 01/09/20 09:25: White Blood Count 11.2H, Red Blood Count 2.06L, Hemoglobin 6.1*L, Hematocrit 19.1L, Mean Corpuscular Volume 93, Mean Corpuscular Hemoglobin 29.7, Mean Corpuscular Hemoglobin Concent 31.9L, Red Cell Distribution Width 12.7, Platelet Count 323, Mean Platelet Volume 5.2L, Neutrophils (%) (Auto) , Lymphocytes (%) (Auto) , Monocytes (%) (Auto) , Eosinophils (%) (Auto) , Basophils (%) (Auto) , Differential Total Cells Counted 100, Neutrophils % ( Manual) 76H, Lymphocytes % (Manual) 14L, Monocytes % (Manual) 3, Eosinophils % ( Manual) 6H, Basophils % (Manual) 1, Band Neutrophils 0, Platelet Estimate Adequate, Platelet Morphology Normal, Hypochromasia 4+, Anisocytosis 1+, Prothrombin Time 10.4, Prothromb Time International Ratio 0.9, Activated Partial Thromboplast Time 27, Sodium Level 140, Potassium Level 4.5, Chloride Level 104, Carbon Dioxide Level 25, Anion Gap 11, Blood Urea Nitrogen 94H, Creatinine 8.7H, Estimat Glomerular Filtration Rate 4.6, Glucose Level 103, Calcium Level 7.4L, Magnesium Level 2.3, Hepatitis B Surface Antigen [Pending] 01/09/20 12:15: Stool Occult Blood [Pending] 01/10/20 05:15: White Blood Count 11.9H, Red Blood Count 3.08L, Hemoglobin 9.1#L, Hematocrit 28.4#L, Mean Corpuscular Volume 92, Mean Corpuscular Hemoglobin 29.5, Mean Corpuscular Hemoglobin Concent 32.1, Red Cell Distribution Width 12.8, Platelet Count 307, Mean Platelet Volume 6.0L, Neutrophils (%) (Auto) 76.1H, Lymphocytes (%) (Auto) 10.2L, Monocytes (%) (Auto) 11.6H, Eosinophils (%) (Auto) 1.6, Basophils (%) (Auto) 0.6, Sodium Level 140, Potassium Level 3.3L, Chloride Level 102, Carbon Dioxide Level 30, Anion Gap 8, Blood Urea Nitrogen 39H, Creatinine 5.0H, Estimat Glomerular Filtration Rate 8.7, Glucose Level 120H, Calcium Level 7.8L, Magnesium Level 2.1, Phosphorus Level 5.2H Height (Feet): 4 Height (Inches): 11.00 Weight (Pounds): 149 General Appearance: no apparent distress Neck: normal alignment Cardiovascular: normal rate Respiratory/Chest: lungs clear Abdomen: normal bowel sounds Objective Current Medications Medications (Trade) Dose Ordered Sig/[place] Route PRN Reason Start Time Stop Time Status Last Admin Dose Admin Acetaminophen (Tylenol) 650 mg Q6H PRN ORAL MILD/TEMP 01/09/20 16:34 02/08/20 16:33 Amlodipine Besylate (Norvasc) 10 mg DAILY ORAL 01/10/20 09:00 02/06/20 10:59 Aspirin (ASA) 81 mg DAILY ORAL 01/10/20 09:00 02/22/20 08:59 Chlorhexidine Gluconate (Barbara-Hex 2%) 1 applic DAILY@1999 TOPIC 01/10/20 20:00 04/09/20 19:59 Clonidine HCl (Catapres Tab) 0.1 mg Q2H PRN ORAL For High Blood Pressure 01/10/20 06:15 04/09/20 06:14 01/10/20 06:48 Dextrose (Dextrose 50%) 25 ml Q30M PRN IV Hypoglycemia 01/09/20 16:35 04/08/20 16:34 Dextrose (Dextrose 50%) 50 ml Q30M PRN IV Hypoglycemia 01/09/20 16:35 04/08/20 16:34 Docusate Sodium (Colace) 100 mg TWICE A DAY ORAL 01/09/20 18:00 02/07/20 11:59 Hydralazine HCl (Apresoline) 25 mg Q4H PRN ORAL For High Blood Pressure 01/09/20 20:15 04/08/20 20:14 01/10/20 04:17 Insulin Aspart (NovoLOG) Q4HR SUBQ 01/09/20 17:00 04/06/20 12:59 Iron Sucrose 100 mg/Sodium Chloride 60 ml @ 240 mls/hr BEDTIME IV 01/09/20 21:00 01/12/20 21:14 01/09/20 20:31 Lactulose (Cephulac) 20 gm DAILY ORAL 01/10/20 09:00 02/08/20 10:29 Ondansetron HCl (Zofran) 4 mg Q4H PRN IVP Nausea & Vomiting 01/09/20 16:35 02/08/20 16:34 Polyethylene Glycol (Miralax) 17 gm BEDTIME ORAL 01/09/20 21:00 02/07/20 20:59 01/09/20 20:31 Sevelamer Carbonate (Renvela) 800 mg THREE TIMES A DAY ORAL 01/09/20 18:00 04/07/20 08:59 01/09/20 20:30 Oracio Story MD Jan 10, 2020 06:54
[2020-01-10] MEDS: Aspirin Baby 81mg ORAL SCH (09:08)
[2020-01-10] MEDS: Docusate 100mg cap ORAL SCH ×2 (09:09→17:57)
[2020-01-10] MEDS: Lactulose 20gm/30ml UDC ORAL SCH (09:09)
--- NOTE | 2020-01-10 09:33 | Nephrology Progress Note ---
Assessment/Plan Plan #NAREN vs NAREN On CKD-- ? ESRD due to DM and HTN- ua with 4+ proteinuria #Hyperkalemia- improved #Hypoglycemia #hyperphosphetemia #HTN- accelerated #DM #HLD #anemia of CKD? - hold off on HD today - lasix 80IV today - placed mcgrath- monitor UOP - check renal US-> echogenic kidneys - prbc transfusion prn - IV iron - amlodipine 10mg daily - hydralazine PRN for now - sevelamer 800mgTID - follow vitamin D level - avoid nephrotoxins - strict I&Os time spent 70 min, greater than 50% on care coordination and counseling. Subjective ROS Limited/Unobtainable: No Constitutional: Reports: malaise, weakness HEENT: Denies: no symptoms, eye pain, blurred vision, tearing, double vision, ear pain, ear discharge, nose pain, nose congestion, throat pain, throat swelling, mouth pain, mouth swelling, other Genitourinary: Denies: no symptoms, burning, discharge, frequency, flank pain, hematuria, incontinence, pain, urgency, other Neurologic/Psychiatric: Denies: no symptoms, anxiety, depressed, emotional problems, headache, numbness, paresthesia, pre-existing deficit, seizure, tingling, tremors, weakness, other Subjective s/p HD yesterday hypertensive during HD- improved will give lasix 80 IV today Martina US:IMPRESSION: ECHOGENIC KIDNEYS REFLECTING MEDICAL RENAL DISEASE. NO OBSTRUCTIVE UROPATHY. GALLSTONE. Objective Objective Last 24 Hour Vital Signs Date Time Temp Pulse Resp B/P (MAP) Pulse Ox O2 Delivery O2 Flow Rate FiO2 01/10/20 09:10 164/77 01/10/20 09:09 81 164/77 01/10/20 08:00 98.6 81 20 164/77 (106) 96 01/10/20 06:48 198/86 01/10/20 06:44 87 198/86 (123) 01/10/20 04:17 199/88 01/10/20 04:00 99.5 85 22 199/88 (125) 97 01/10/20 00:46 205/94 01/10/20 00:39 98.8 93 20 205/94 (131) 94 01/09/20 21:00 Room Air 01/09/20 20:45 209/89 01/09/20 20:30 98.1 89 18 209/89 (129) 95 01/09/20 16:32 97.5 85 18 159/80 (106) 95 01/09/20 16:10 Room Air 01/09/20 14:13 88 15 2.0 01/09/20 14:05 88 15 183/90 (121) 01/09/20 14:05 98.5 92 17 187/90 (122) 93 01/09/20 13:53 93 17 01/09/20 13:39 92 18 187/90 (122) 93 01/09/20 12:00 98.5 81 20 175/73 (107) 96 01/09/20 12:00 79 Intake and Output 01/09/20 01/10/20 19:00 07:00 Intake Total 60 ml Output Total 3700 ml Balance -3640 ml IV Total 60 ml Output Urine Total 700 ml Hemodialysis UF 3000 ml # Bowel Movements 1 3 Laboratory Tests 01/09/20 12:15: Stool Occult Blood [Pending] 01/10/20 05:15: White Blood Count 11.9H, Red Blood Count 3.08L, Hemoglobin 9.1#L, Hematocrit 28.4#L, Mean Corpuscular Volume 92, Mean Corpuscular Hemoglobin 29.5, Mean Corpuscular Hemoglobin Concent 32.1, Red Cell Distribution Width 12.8, Platelet Count 307, Mean Platelet Volume 6.0L, Neutrophils (%) (Auto) 76.1H, Lymphocytes (%) (Auto) 10.2L, Monocytes (%) (Auto) 11.6H, Eosinophils (%) (Auto) 1.6, Basophils (%) (Auto) 0.6, Sodium Level 140, Potassium Level 3.3L, Chloride Level 102, Carbon Dioxide Level 30, Anion Gap 8, Blood Urea Nitrogen 39H, Creatinine 5.0H, Estimat Glomerular Filtration Rate 8.7, Glucose Level 120H, Calcium Level 7.8L, Phosphorus Level 5.2H, Magnesium Level 2.1 Height (Feet): 4 Height (Inches): 11.00 Weight (Pounds): 149 Anand Cannon M.D. Jan 10, 2020 09:33
--- NOTE | 2020-01-10 12:49 | General Progress Note ---
Assessment/Plan Problem List: (1) Hypertension ICD Codes: I10 - Essential (primary) hypertension SNOMED: 91151965 (2) Renal insufficiency ICD Codes: N28.9 - Disorder of kidney and ureter, unspecified SNOMED: 516869701, 323584834 (3) Anemia ICD Codes: D64.9 - Anemia, unspecified SNOMED: 281418455 (4) Hypoglycemia secondary to sulfonylurea ICD Codes: T38.3X1A - Poisoning by insulin and oral hypoglycemic [antidiabetic ] drugs, accidental (unintentional), initialencounter; E16.0 - Drug-induced hypoglycemia without coma SNOMED: 603409280, 474938426 Status: stable Assessment/Plan: iv iron colace and miralax add lactulose pending blood transfusion fu stool ob>>> neg anemia most likely related to kidney DZ GI procedures if needed Subjective Allergies: Coded Allergies: No Known Allergies (Unverified , 01/07/20) Objective Last 24 Hour Vital Signs Date Time Temp Pulse Resp B/P (MAP) Pulse Ox O2 Delivery O2 Flow Rate FiO2 01/10/20 12:00 96.8 74 20 157/68 (97) 94 01/10/20 09:10 164/77 01/10/20 09:09 81 164/77 01/10/20 09:00 Room Air 01/10/20 08:00 98.6 81 20 164/77 (106) 96 01/10/20 06:48 198/86 01/10/20 06:44 87 198/86 (123) 01/10/20 04:17 199/88 01/10/20 04:00 99.5 85 22 199/88 (125) 97 01/10/20 00:46 205/94 01/10/20 00:39 98.8 93 20 205/94 (131) 94 01/09/20 21:00 Room Air 01/09/20 20:45 209/89 01/09/20 20:30 98.1 89 18 209/89 (129) 95 01/09/20 16:32 97.5 85 18 159/80 (106) 95 01/09/20 16:10 Room Air 01/09/20 14:13 88 15 2.0 01/09/20 14:05 88 15 183/90 (121) 01/09/20 14:05 98.5 92 17 187/90 (122) 93 01/09/20 13:53 93 17 01/09/20 13:39 92 18 187/ (122) 93 Intake and Output 01/09/20 01/10/20 19:00 07:00 Intake Total 60 ml Output Total 3700 ml Balance -3640 ml IV Total 60 ml Output Urine Total 700 ml Hemodialysis UF 3000 ml # Bowel Movements 1 3 Laboratory Tests 01/10/20 05:15: White Blood Count 11.9H, Red Blood Count 3.08L, Hemoglobin 9.1#L, Hematocrit 28.4#L, Mean Corpuscular Volume 92, Mean Corpuscular Hemoglobin 29.5, Mean Corpuscular Hemoglobin Concent 32.1, Red Cell Distribution Width 12.8, Platelet Count 307, Mean Platelet Volume 6.0L, Neutrophils (%) (Auto) 76.1H, Lymphocytes (%) (Auto) 10.2L, Monocytes (%) (Auto) 11.6H, Eosinophils (%) (Auto) 1.6, Basophils (%) (Auto) 0.6, Sodium Level 140, Potassium Level 3.3L, Chloride Level 102, Carbon Dioxide Level 30, Anion Gap 8, Blood Urea Nitrogen 39H, Creatinine 5.0H, Estimat Glomerular Filtration Rate 8.7, Glucose Level 120H, Calcium Level 7.8L, Phosphorus Level 5.2H, Magnesium Level 2.1 Height (Feet): 4 Height (Inches): 11.00 Weight (Pounds): 149 General Appearance: no apparent distress EENT: normal ENT inspection Neck: supple Cardiovascular: normal rate Respiratory/Chest: decreased breath sounds Abdomen: normal bowel sounds, non tender, soft Extremities: non-tender Alejandro Chamberlain MD Jan 10, 2020 12:49
--- NOTE | 2020-01-10 14:47 | Surgery Progress Note ---
Surgery Progress Note Subjective Additional Comments no acute events anemia heme input noted no n/v/fc hd per renal Objective Last 24 Hour Vital Signs Date Time Temp Pulse Resp B/P (MAP) Pulse Ox O2 Delivery O2 Flow Rate FiO2 01/10/20 12:00 96.8 74 20 157/68 (97) 94 01/10/20 09:10 164/77 01/10/20 09:09 81 164/77 01/10/20 09:00 Room Air 01/10/20 08:00 98.6 81 20 164/77 (106) 96 01/10/20 06:48 198/86 01/10/20 06:44 87 198/86 (123) 01/10/20 04:17 199/88 01/10/20 04:00 99.5 85 22 199/88 (125) 97 01/10/20 00:46 205/94 01/10/20 00:39 98.8 93 20 205/94 (131) 94 01/09/20 21:00 Room Air 01/09/20 20:45 209/89 01/09/20 20:30 98.1 89 18 209/89 (129) 95 01/09/20 16:32 97.5 85 18 159/80 (106) 95 01/09/20 16:10 Room Air I&O Intake and Output 01/09/20 01/10/20 19:00 07:00 Intake Total 60 ml Output Total 3700 ml Balance -3640 ml IV Total 60 ml Output Urine Total 700 ml Hemodialysis UF 3000 ml # Bowel Movements 1 3 Dressing: other Wound: other Drains: other Cardiovascular: RSR Respiratory: decreased breath sounds Abdomen: soft, non-tender, present bowel sounds Laboratory Tests Test 01/10/20 05:15 White Blood Count 11.9 K/UL (4.8-10.8) H Red Blood Count 3.08 M/UL (4.20-5.40) L Hemoglobin 9.1 G/DL (12.0-16.0) #L Hematocrit 28.4 % (37.0-47.0) #L Mean Corpuscular Volume 92 FL (80-99) Mean Corpuscular Hemoglobin 29.5 PG (27.0-31.0) Mean Corpuscular Hemoglobin Concent 32.1 G/DL (32.0-36.0) Red Cell Distribution Width 12.8 % (11.6-14.8) Platelet Count 307 K/UL (150-450) Mean Platelet Volume 6.0 FL (6.5-10.1) L Neutrophils (%) (Auto) 76.1 % (45.0-75.0) H Lymphocytes (%) (Auto) 10.2 % (20.0-45.0) L Monocytes (%) (Auto) 11.6 % (1.0-10.0) H Eosinophils (%) (Auto) 1.6 % (0.0-3.0) Basophils (%) (Auto) 0.6 % (0.0-2.0) Sodium Level 140 MMOL/L (136-145) Potassium Level 3.3 MMOL/L (3.5-5.1) L Chloride Level 102 MMOL/L (98-107) Carbon Dioxide Level 30 MMOL/L (21-32) Anion Gap 8 mmol/L (5-15) Blood Urea Nitrogen 39 mg/dL (7-18) H Creatinine 5.0 MG/DL (0.55-1.30) H Estimat Glomerular Filtration Rate 8.7 mL/min (>60) Glucose Level 120 MG/DL (74-106) H Calcium Level 7.8 MG/DL (8.5-10.1) L Phosphorus Level 5.2 MG/DL (2.5-4.9) H Magnesium Level 2.1 MG/DL (1.8-2.4) Plan Problems: (1) Anemia Assessment & Plan: Transfuse PRN No active bleeding noted Trend H&H (2) Renal insufficiency Assessment & Plan: [age]-year-old female identified to have significant abnormal labs on admission elevated creatinine and BUN electrolytes. Discussed with nephrology patient in need of dialysis. Family has been contacted for consent given patient's current mental status but currently have not been decision as to care plan and goals of care Patient needs HD access for hemodialysis if family she was wishes Will await consent will be available for placement of catheter to initiate hemodialysis Thank you for let me participate patient's care family consented to line placement anemia transfuse with HD line placed right IJ temp HD (3) Hypertension (4) Hypoglycemia secondary to sulfonylurea Matheus Colvin Jan 10, 2020 14:47
--- NOTE | 2020-01-10 16:49 | General Progress Note ---
Assessment/Plan Problem List: (1) Renal insufficiency ICD Codes: N28.9 - Disorder of kidney and ureter, unspecified SNOMED: 214774243, 966840954 (2) Anemia ICD Codes: D64.9 - Anemia, unspecified SNOMED: 831641241 (3) Hypertension ICD Codes: I10 - Essential (primary) hypertension SNOMED: 41983755 (4) Hypoglycemia secondary to sulfonylurea ICD Codes: T38.3X1A - Poisoning by insulin and oral hypoglycemic [antidiabetic ] drugs, accidental (unintentional), initialencounter; E16.0 - Drug-induced hypoglycemia without coma SNOMED: 054407256, 858516143 Status: stable Assessment/Plan: 64yo female with pmh of HTN, DM2 who presents with hypoglycemia,and found to have NAREN. # Symptomatic hypoglycemia - BG 30s - likely 2/2 increased dose of glipizide # Acute encephalopathy # Diabetes mellitus type 2 - Hold all hypoglycemic agents - SSI - s/p D10W gtt in ED - f/u Endo consult, appreciate recs: Continue off any hypoglycemic agents # NAREN vs NAREN on CKD - unclear baseline Cr. BUN 80s/Cr 7's. Pt likely with CKD 2/ 2 underlying diabetes and HTN # Hyperkalemia # Hyponatremia, hypervolemic ype - Renal consulted - Hold lisinopril - Kayexylate x1 today - Trend BMP/Mg/Phos - Check renal U/S: renal disease, no signs of post-obstruction - HD per renal -General surgery consult, for Eduardo placed 01/08 # Fever resolved - asymptomatic - blood cultures x 2, negative to date, follow-up preliminary, follow-up final - lactic acid within normal limits - f/u CXR negative - ordered COVID, negative # Anemia -Trend CBC -Check FOBT from stool -Iron panel -Transfuse for hemoglobin less than 7 -GI consult, appreciate recommendations -Status post transfusion with good hemoglobin response # HTN - Hold lisinopril 2/2 NAREN - Amlodipine 10mg daily started -Start Coreg 12.5 mg p.o. twice daily -Cardiology consult, appreciate recommendations -TTE normal ejection fraction DVT Prophylaxis: SCD, HSQ Code Status: Full Hospital Classification Declaration: Based on this initial evaluation, and depending on the patient's clinical course, I anticipate that this patient will require hospitalization for 2-3 days for hypoglycemia, NAREN, and close respiratory/hemodynamic monitoring. Disposition: Once the patient is stable to leave the hospital, I anticipate the patient will likely be discharged to the following environment: home with HH vs SNF I spent 38 minutes on this patient's case, and 35 minutes were dedicated to counseling and/or care coordination. Discussed with patient/family, nursing staff, renal regarding clinical status, treatment course, and disposition planning. Subjective Date patient seen: Jan 10, 2020 Time patient seen: 14:00 Allergies: Coded Allergies: No Known Allergies (Unverified , 01/07/20) Subjective Patient states she is doing well and denies any fevers, chills, melena, hematochezia, abdominal pain, nausea, vomiting Tunneled cath placed yesterday, no bleeding or pain Objective Last 24 Hour Vital Signs Date Time Temp Pulse Resp B/P (MAP) Pulse Ox O2 Delivery O2 Flow Rate FiO2 01/10/20 12:00 96.8 74 20 157/68 (97) 94 01/10/20 09:10 164/77 01/10/20 09:09 81 164/77 01/10/20 09:00 Room Air 01/10/20 08:00 98.6 81 20 164/77 (106) 96 01/10/20 06:48 198/86 01/10/20 06:44 87 198/86 (123) 01/10/20 04:17 199/88 01/10/20 04:00 99.5 85 22 199/88 (125) 97 01/10/20 00:46 205/94 01/10/20 00:39 98.8 93 20 205/94 (131) 94 01/09/20 21:00 Room Air 01/09/20 20:45 209/89 01/09/20 20:30 98.1 89 18 209/89 (129) 95 Intake and Output 01/09/20 01/10/20 19:00 07:00 Intake Total 60 ml Output Total 3700 ml Balance -3640 ml IV Total 60 ml Output Urine Total 700 ml Hemodialysis UF 3000 ml # Bowel Movements 1 3 Laboratory Tests 01/10/20 05:15: White Blood Count 11.9H, Red Blood Count 3.08L, Hemoglobin 9.1#L, Hematocrit 28.4#L, Mean Corpuscular Volume 92, Mean Corpuscular Hemoglobin 29.5, Mean Corpuscular Hemoglobin Concent 32.1, Red Cell Distribution Width 12.8, Platelet Count 307, Mean Platelet Volume 6.0L, Neutrophils (%) (Auto) 76.1H, Lymphocytes (%) (Auto) 10.2L, Monocytes (%) (Auto) 11.6H, Eosinophils (%) (Auto) 1.6, Basophils (%) (Auto) 0.6, Sodium Level 140, Potassium Level 3.3L, Chloride Level 102, Carbon Dioxide Level 30, Anion Gap 8, Blood Urea Nitrogen 39H, Creatinine 5.0H, Estimat Glomerular Filtration Rate 8.7, Glucose Level 120H, Calcium Level 7.8L, Phosphorus Level 5.2H, Magnesium Level 2.1 Height (Feet): 4 Height (Inches): 11.00 Weight (Pounds): 149 Objective GENERAL: No acute distress, appears comfortable, alert HEENT: NCAT, non-icteric eyes, pupils PERRLA Neck: No cervical lymphadenopathy, trachea midline CV: Tunneled catheter noted on right chest no hematoma, regular rate and rhythm , no murmurs rubs or gallops RESP: Clear to auscultation bilaterally, no wheezes/rhonchi/crackles ABD: soft, non-distended, no TTP EXT: Normal muscle tone, +5/5 muscle strength NEURO: No obvious deficits, alert and oriented x3 Ny Pittman DO Jan 10, 2020 16:49
[2020-01-10] MEDS: Carvedilol 12.5mg tab ORAL SCH ×2 (17:57→20:17)
[2020-01-10] MEDS: Iron Sucrose 100 MG in NS 55 ML IV SCH (20:17)
[2020-01-10] MEDS: Miralax 17gm pkt ORAL SCH (20:17)
[2020-01-10] MEDS: Dyna-Hex 2% Top Sol 2oz TOPIC SCH (20:17)
[2020-01-11] VITALS (11 sets, daily range): BP systolic 147–230; BP diastolic 68–90
[2020-01-11] MEDS: HydrALAZINE 25mg tab ORAL PRN ×2 (04:09→16:01)
[2020-01-11 05:50] LABS: BASOPHILS % (AUTO) 0.8 % (0.0-2.0); EOSINOPHILS % (AUTO) 4.7 % (0.0-3.0); HEMATOCRIT 25.5 % (37.0-47.0); HEMOGLOBIN 8.2 G/DL (12.0-16.0); LYMPHOCYTES % (AUTO) 12.3 % (20.0-45.0); MEAN CORPUSCULAR VOLUME 92 FL (80-99); MONOCYTES % (AUTO) 11.9 % (1.0-10.0); NEUTROPHILS % (AUTO) 70.3 % (45.0-75.0); PLATELET COUNT 292 K/UL (150-450); RED BLOOD COUNT 2.76 M/UL (4.20-5.40); RED CELL DISTRIBUTION WIDTH 12.1 % (11.6-14.8); WHITE BLOOD COUNT 10.6 K/UL (4.8-10.8)
[2020-01-11] MEDS: NovoLOG Insulin Flexpen SUBQ SCH ×4 (06:12→20:36)
[2020-01-11 06:50] LABS: ANION GAP 11 mmol/L (5-15); BLOOD UREA NITROGEN 41 mg/dL (7-18); CALCIUM 7.5 MG/DL (8.5-10.1); CARBON DIOXIDE 27 MMOL/L (21-32); CHLORIDE 99 MMOL/L (98-107); CREATININE 5.8 MG/DL (0.55-1.30); PHOSPHORUS 5.1 MG/DL (2.5-4.9); POTASSIUM 3.1 MMOL/L (3.5-5.1); SODIUM 137 MMOL/L (136-145)
--- NOTE | 2020-01-11 06:52 | General Progress Note ---
Assessment/Plan Problem List: (1) Renal insufficiency ICD Codes: N28.9 - Disorder of kidney and ureter, unspecified SNOMED: 898998374, 940628019 (2) Hypertension ICD Codes: I10 - Essential (primary) hypertension SNOMED: 90914279 (3) Hypoglycemia secondary to sulfonylurea ICD Codes: T38.3X1A - Poisoning by insulin and oral hypoglycemic [antidiabetic ] drugs, accidental (unintentional), initialencounter; E16.0 - Drug-induced hypoglycemia without coma SNOMED: 231224173, 992026311 (4) Anemia ICD Codes: D64.9 - Anemia, unspecified SNOMED: 189739767 Status: stable Assessment/Plan: no need for oral diabetes agents glucose values are controlled continue glucose monitoring ac / hs hypoglycemia protocol in order no need for insulin after discharge Subjective Allergies: Coded Allergies: No Known Allergies (Unverified , 01/07/20) Subjective events noted glucose values stable without recurrence of hypoglycemia Item Value Date Time Bedside Blood Glucose 97 mg/dl 01/11/20 0612 Bedside Blood Glucose 125 mg/dl H 01/10/20 2033 Bedside Blood Glucose 106 mg/dl 01/10/20 1630 Bedside Blood Glucose 102 mg/dl 01/10/20 1200 Bedside Blood Glucose 114 mg/dl 01/10/20 0800 Bedside Blood Glucose 125 mg/dl H 01/10/20 0421 Bedside Blood Glucose 131 mg/dl H 01/10/20 0045 Objective Last 24 Hour Vital Signs Date Time Temp Pulse Resp B/P (MAP) Pulse Ox O2 Delivery O2 Flow Rate FiO2 01/11/20 06:08 71 152/68 (96) 01/11/20 04:09 198/86 01/11/20 04:09 198/86 01/11/20 04:00 98.2 71 20 198/86 (123) 93 71 01/11/20 00:00 99.1 71 20 147/75 (99) 93 71 01/10/20 20:40 Room Air 01/10/20 20:17 86 160/57 01/10/20 20:00 97.9 86 20 160/57 (91) 93 86 01/10/20 17:57 74 145/66 01/10/20 16:00 98.1 74 20 145/66 (92) 94 01/10/20 12:00 96.8 74 20 157/68 (97) 94 01/10/20 09:10 164/77 01/10/20 09:09 81 164/77 01/10/20 09:00 Room Air 01/10/20 08:00 98.6 81 20 164/77 (106) 96 Intake and Output 01/10/20 01/11/20 19:00 07:00 Intake Total 720 ml 60 ml Output Total 400 ml Balance 720 ml -340 ml Intake Oral 720 ml IV Total 60 ml Output Urine Total 400 ml # Bowel Movements 3 1 Laboratory Tests 01/11/20 04:45: White Blood Count 10.6, Red Blood Count 2.76L, Hemoglobin 8.2L, Hematocrit 25.5L , Mean Corpuscular Volume 92, Mean Corpuscular Hemoglobin 29.6, Mean Corpuscular Hemoglobin Concent 32.0, Red Cell Distribution Width 12.1, Platelet Count 292, Mean Platelet Volume 5.8L, Neutrophils (%) (Auto) 70.3, Lymphocytes ( %) (Auto) 12.3L, Monocytes (%) (Auto) 11.9H, Eosinophils (%) (Auto) 4.7H, Basophils (%) (Auto) 0.8, Sodium Level [Pending], Potassium Level [Pending], Chloride Level [Pending], Carbon Dioxide Level [Pending], Blood Urea Nitrogen [ Pending], Creatinine [Pending], Estimat Glomerular Filtration Rate [Pending], Glucose Level [Pending], Calcium Level [Pending], Phosphorus Level [Pending], Magnesium Level [Pending] Height (Feet): 4 Height (Inches): 11.00 Weight (Pounds): 149 General Appearance: no apparent distress Neck: normal alignment Cardiovascular: normal rate Respiratory/Chest: lungs clear Abdomen: normal bowel sounds Pelvis: normal external exam Objective Current Medications Medications (Trade) Dose Ordered Sig/[place] Route PRN Reason Start Time Stop Time Status Last Admin Dose Admin Acetaminophen (Tylenol) 650 mg Q6H PRN ORAL MILD/TEMP 01/09/20 16:34 02/08/20 16:33 Amlodipine Besylate (Norvasc) 10 mg DAILY ORAL 01/10/20 09:00 02/06/20 10:59 01/10/20 09:09 Aspirin (ASA) 81 mg DAILY ORAL 6/25/20 09:00 02/22/20 08:59 01/10/20 09:08 Carvedilol (Coreg) 12.5 mg EVERY 12 HOURS ORAL 01/10/20 16:45 02/09/20 16:44 01/10/20 20:17 Chlorhexidine Gluconate (Barbara-Hex 2%) 1 applic DAILY@2000 TOPIC 01/10/20 20:00 04/09/20 19:59 01/10/20 20:17 Clonidine HCl (Catapres Tab) 0.1 mg Q2H PRN ORAL For High Blood Pressure 01/10/20 06:15 04/09/20 06:14 01/11/20 04:09 Dextrose (Dextrose 50%) 25 ml Q30M PRN IV Hypoglycemia 01/09/20 16:35 04/08/20 16:34 Dextrose (Dextrose 50%) 50 ml Q30M PRN IV Hypoglycemia 01/09/20 16:35 04/08/20 16:34 Docusate Sodium (Colace) 100 mg TWICE A DAY ORAL 01/09/20 18:00 02/07/20 11:59 01/10/20 17:57 Hydralazine HCl (Apresoline) 25 mg Q4H PRN ORAL For High Blood Pressure 01/09/20 20:15 04/08/20 20:14 01/11/20 04:09 Insulin Aspart (NovoLOG) AC+HS SUBQ 01/10/20 11:30 04/06/20 12:59 Iron Sucrose 100 mg/Sodium Chloride 60 ml @ 240 mls/hr BEDTIME IV 01/09/20 21:00 01/12/20 21:14 01/10/20 20:17 Lactulose (Cephulac) 20 gm DAILY ORAL 01/10/20 09:00 02/08/20 10:29 01/10/20 09:09 Ondansetron HCl (Zofran) 4 mg Q4H PRN IVP Nausea & Vomiting 01/09/20 16:35 02/08/20 16:34 Polyethylene Glycol (Miralax) 17 gm BEDTIME ORAL 01/09/20 21:00 02/07/20 20:59 01/10/20 20:17 Sevelamer Carbonate (Renvela) 800 mg THREE TIMES A DAY ORAL 01/09/20 18:00 04/07/20 08:59 01/10/20 17:57 Oracio Story MD Jan 11, 2020 06:52
[2020-01-11] MEDS: Docusate 100mg cap ORAL SCH ×2 (08:49→17:43)
[2020-01-11] MEDS: Lactulose 20gm/30ml UDC ORAL SCH (08:49)
[2020-01-11] MEDS: Aspirin Baby 81mg ORAL SCH (08:49)
[2020-01-11] MEDS: Carvedilol 12.5mg tab ORAL SCH ×2 (09:00→20:35)
--- NOTE | 2020-01-11 09:42 | Nephrology Progress Note ---
Assessment/Plan Plan #NAREN vs NAREN On CKD-- ? ESRD due to DM and HTN- ua with 4+ proteinuria #Hyperkalemia- improved #Hypoglycemia #hyperphosphetemia #HTN- accelerated #DM #HLD #anemia of CKD? - HD today - monitor BMP and UOP over the weekend - placed mcgrath- monitor UOP - check renal US-> echogenic kidneys - prbc transfusion prn - IV iron - amlodipine 10mg daily - hydralazine PRN for now - sevelamer 800mgTID - follow vitamin D level - avoid nephrotoxins - strict I&Os time spent 70 min, greater than 50% on care coordination and counseling. Subjective ROS Limited/Unobtainable: No Constitutional: Denies: no symptoms, chills, diaphoresis, fever, malaise, weakness, other HEENT: Denies: no symptoms, eye pain, blurred vision, tearing, double vision, ear pain, ear discharge, nose pain, nose congestion, throat pain, throat swelling, mouth pain, mouth swelling, other Genitourinary: Denies: no symptoms, burning, discharge, frequency, flank pain, hematuria, incontinence, pain, urgency, other Neurologic/Psychiatric: Denies: no symptoms, anxiety, depressed, emotional problems, headache, numbness, paresthesia, pre-existing deficit, seizure, tingling, tremors, weakness, other Subjective Hd today will monitor renal function over the weekend Martina US:IMPRESSION: ECHOGENIC KIDNEYS REFLECTING MEDICAL RENAL DISEASE. NO OBSTRUCTIVE UROPATHY. GALLSTONE. Objective Objective Last 24 Hour Vital Signs Date Time Temp Pulse Resp B/P (MAP) Pulse Ox O2 Delivery O2 Flow Rate FiO2 01/11/20 08:00 98.2 71 18 166/75 (105) 95 71 01/11/20 06:08 71 152/68 (96) 01/11/20 04:09 198/86 01/11/20 04:09 198/86 01/11/20 04:00 98.2 71 20 198/86 (123) 93 71 01/11/20 00:00 99.1 71 20 147/75 (99) 93 71 01/10/20 20:40 Room Air 01/10/20 20:17 86 160/57 01/10/20 20:00 97.9 86 20 160/57 (91) 93 86 01/10/20 17:57 74 145/66 01/10/20 16:00 98.1 74 20 145/66 (92) 94 01/10/20 12:00 96.8 74 20 157/68 (97) 94 Intake and Output 01/10/20 01/11/20 19:00 07:00 Intake Total 720 ml 420 ml Output Total 850 ml Balance 720 ml -430 ml Intake Oral 720 ml IV Total 60 ml Other 360 ml Output Urine Total 850 ml # Bowel Movements 3 1 Laboratory Tests 01/11/20 04:45: White Blood Count 10.6, Red Blood Count 2.76L, Hemoglobin 8.2L, Hematocrit 25.5L , Mean Corpuscular Volume 92, Mean Corpuscular Hemoglobin 29.6, Mean Corpuscular Hemoglobin Concent 32.0, Red Cell Distribution Width 12.1, Platelet Count 292, Mean Platelet Volume 5.8L, Neutrophils (%) (Auto) 70.3, Lymphocytes ( %) (Auto) 12.3L, Monocytes (%) (Auto) 11.9H, Eosinophils (%) (Auto) 4.7H, Basophils (%) (Auto) 0.8, Sodium Level 137, Potassium Level 3.1L, Chloride Level 99, Carbon Dioxide Level 27, Anion Gap 11, Blood Urea Nitrogen 41H, Creatinine 5.8H, Estimat Glomerular Filtration Rate 7.3, Glucose Level 101, Calcium Level 7.5L, Phosphorus Level 5.1H, Magnesium Level 1.9 Height (Feet): 4 Height (Inches): 11.00 Weight (Pounds): 149 Anand Cannon M.D. Jan 11, 2020 09:42
--- NOTE | 2020-01-11 11:08 | General Progress Note ---
Assessment/Plan Problem List: (1) Renal insufficiency ICD Codes: N28.9 - Disorder of kidney and ureter, unspecified SNOMED: 974229627, 666977142 (2) Anemia ICD Codes: D64.9 - Anemia, unspecified SNOMED: 870828813 (3) Hypertension ICD Codes: I10 - Essential (primary) hypertension SNOMED: 74142886 (4) Hypoglycemia secondary to sulfonylurea ICD Codes: T38.3X1A - Poisoning by insulin and oral hypoglycemic [antidiabetic ] drugs, accidental (unintentional), initialencounter; E16.0 - Drug-induced hypoglycemia without coma SNOMED: 348308849, 954104482 Status: stable Assessment/Plan: 64yo female with pmh of HTN, DM2 who presents with hypoglycemia,and found to have NAREN. # NAREN vs NAREN on CKD - unclear baseline Cr. BUN 80s/Cr 7's. Pt likely with CKD 2/ 2 underlying diabetes and HTN # Hyperkalemia # Hyponatremia, hypervolemic ype - Renal consulted - Hold lisinopril - Kayexylate x1 today - Trend BMP/Mg/Phos - Check renal U/S: renal disease, no signs of post-obstruction - HD per renal -General surgery consult, for Eduardo placed 01/08 -Discussed with nephrology, will monitor urine output and continue dialysis, with possible discharge early next week # Symptomatic hypoglycemia - BG 30s - likely 2/2 increased dose of glipizide, resolved # Acute encephalopathy # Diabetes mellitus type 2 - Hold all hypoglycemic agents - SSI - s/p D10W gtt in ED - f/u Endo consult, appreciate recs: Continue off any hypoglycemic agents # Fever resolved - asymptomatic - blood cultures x 2, negative to date, follow-up preliminary, follow-up final - lactic acid within normal limits - f/u CXR negative - ordered COVID, negative # Anemia -Trend CBC -Check FOBT from stool -Iron panel -Transfuse for hemoglobin less than 7 -GI consult, appreciate recommendations -Status post transfusion with good hemoglobin response # HTN - Hold lisinopril 2/2 NAREN - Amlodipine 10mg daily started -Continue Coreg 12.5 mg p.o. twice daily -Patient to receive dialysis today, if continues to be hypertensive will increase blood pressure medications -Cardiology consult, appreciate recommendations -TTE normal ejection fraction DVT Prophylaxis: SCD, HSQ Code Status: Full Hospital Classification Declaration: Based on this initial evaluation, and depending on the patient's clinical course, I anticipate that this patient will require hospitalization for 2-3 days for hypoglycemia, NAREN, and close respiratory/hemodynamic monitoring. Disposition: Once the patient is stable to leave the hospital, I anticipate the patient will likely be discharged to the following environment: home with vs SNF I spent 38 minutes on this patient's case, and 35 minutes were dedicated to counseling and/or care coordination. Discussed with patient/family, nursing staff, renal regarding clinical status, treatment course, and disposition planning. I spent an additional 38 minutes on reviewing patient's chart from admission. This includes review of imaging, labs, notes, and interpretation of results. Subjective Date patient seen: Jan 11, 2020 Time patient seen: 09:03 Allergies: Coded Allergies: No Known Allergies (Unverified , 01/07/20) Subjective Patient states she is doing well and denies any fevers, chills, melena, hematochezia, abdominal pain, nausea, vomiting Objective Last 24 Hour Vital Signs Date Time Temp Pulse Resp B/P (MAP) Pulse Ox O2 Delivery O2 Flow Rate FiO2 01/11/20 09:00 Room Air 01/11/20 09:00 71 166/75 01/11/20 09:00 71 166/75 01/11/20 08:00 98.2 71 18 166/75 (105) 95 71 01/11/20 06:08 71 152/68 (96) 01/11/20 04:09 198/86 01/11/20 04:09 198/86 01/11/20 04:00 98.2 71 20 198/86 (123) 93 71 01/11/20 00:00 99.1 71 20 147/75 (99) 93 71 01/10/20 20:40 Room Air 01/10/20 20:17 86 160/57 01/10/20 20:00 97.9 86 20 160/57 (91) 93 86 01/10/20 17:57 74 145/66 01/10/20 16:00 98.1 74 20 145/66 (92) 94 01/10/20 12:00 96.8 74 20 157/68 (97) 94 Intake and Output 01/10/20 01/11/20 19:00 07:00 Intake Total 720 ml 420 ml Output Total 850 ml Balance 720 ml -430 ml Intake Oral 720 ml IV Total 60 ml Other 360 ml Output Urine Total 850 ml # Bowel Movements 3 1 Laboratory Tests 01/11/20 04:45: White Blood Count 10.6, Red Blood Count 2.76L, Hemoglobin 8.2L, Hematocrit 25.5L , Mean Corpuscular Volume 92, Mean Corpuscular Hemoglobin 29.6, Mean Corpuscular Hemoglobin Concent 32.0, Red Cell Distribution Width 12.1, Platelet Count 292, Mean Platelet Volume 5.8L, Neutrophils (%) (Auto) 70.3, Lymphocytes ( %) (Auto) 12.3L, Monocytes (%) (Auto) 11.9H, Eosinophils (%) (Auto) 4.7H, Basophils (%) (Auto) 0.8, Sodium Level 137, Potassium Level 3.1L, Chloride Level 99, Carbon Dioxide Level 27, Anion Gap 11, Blood Urea Nitrogen 41H, Creatinine 5.8H, Estimat Glomerular Filtration Rate 7.3, Glucose Level 101, Calcium Level 7.5L, Phosphorus Level 5.1H, Magnesium Level 1.9 Height (Feet): 4 Height (Inches): 11.00 Weight (Pounds): 149 Objective GENERAL: No acute distress, appears comfortable, alert HEENT: NCAT, non-icteric eyes, pupils PERRLA Neck: No cervical lymphadenopathy, trachea midline CV: Tunneled catheter noted on right chest no hematoma, regular rate and rhythm , no murmurs rubs or gallops RESP: Clear to auscultation bilaterally, no wheezes/rhonchi/crackles ABD: soft, non-distended, no TTP EXT: Normal muscle tone, +5/5 muscle strength NEURO: No obvious deficits, alert and oriented x3 Ny Pittman DO Jan 11, 2020 11:07
--- NOTE | 2020-01-11 11:50 | General Progress Note ---
Assessment/Plan Problem List: (1) Hypertension ICD Codes: I10 - Essential (primary) hypertension SNOMED: 63721595 (2) Renal insufficiency ICD Codes: N28.9 - Disorder of kidney and ureter, unspecified SNOMED: 706409394, 706441562 (3) Anemia ICD Codes: D64.9 - Anemia, unspecified SNOMED: 340546372 (4) Hypoglycemia secondary to sulfonylurea ICD Codes: T38.3X1A - Poisoning by insulin and oral hypoglycemic [antidiabetic ] drugs, accidental (unintentional), initialencounter; E16.0 - Drug-induced hypoglycemia without coma SNOMED: 992769445, 642679936 Status: stable Assessment/Plan: iv iron colace and miralax lactulose fu stool ob>>> neg anemia most likely related to kidney DZ GI procedures if needed Subjective ROS Limited/Unobtainable: No Allergies: Coded Allergies: No Known Allergies (Unverified , 01/07/20) Objective Last 24 Hour Vital Signs Date Time Temp Pulse Resp B/P (MAP) Pulse Ox O2 Delivery O2 Flow Rate FiO2 01/11/20 09:00 Room Air 01/11/20 09:00 71 166/75 01/11/20 09:00 71 166/75 01/11/20 08:00 98.2 71 18 166/75 (105) 95 71 01/11/20 06:08 71 152/68 (96) 01/11/20 04:09 198/86 01/11/20 04:09 198/86 01/11/20 04:00 98.2 71 20 198/86 (123) 93 71 01/11/20 00:00 99.1 71 20 147/75 (99) 93 71 01/10/20 20:40 Room Air 01/10/20 20:17 86 160/57 01/10/20 20:00 97.9 86 20 160/57 (91) 93 86 01/10/20 17:57 74 145/66 01/10/20 16:00 98.1 74 20 145/66 (92) 94 01/10/20 12:00 96.8 74 20 157/68 (97) 94 Intake and Output 01/10/20 01/11/20 19:00 07:00 Intake Total 720 ml 420 ml Output Total 850 ml Balance 720 ml -430 ml Intake Oral 720 ml IV Total 60 ml Other 360 ml Output Urine Total 850 ml # Bowel Movements 3 1 Laboratory Tests 01/11/20 04:45: White Blood Count 10.6, Red Blood Count 2.76L, Hemoglobin 8.2L, Hematocrit 25.5L , Mean Corpuscular Volume 92, Mean Corpuscular Hemoglobin 29.6, Mean Corpuscular Hemoglobin Concent 32.0, Red Cell Distribution Width 12.1, Platelet Count 292, Mean Platelet Volume 5.8L, Neutrophils (%) (Auto) 70.3, Lymphocytes ( %) (Auto) 12.3L, Monocytes (%) (Auto) 11.9H, Eosinophils (%) (Auto) 4.7H, Basophils (%) (Auto) 0.8, Sodium Level 137, Potassium Level 3.1L, Chloride Level 99, Carbon Dioxide Level 27, Anion Gap 11, Blood Urea Nitrogen 41H, Creatinine 5.8H, Estimat Glomerular Filtration Rate 7.3, Glucose Level 101, Calcium Level 7.5L, Phosphorus Level 5.1H, Magnesium Level 1.9 Height (Feet): 4 Height (Inches): 11.00 Weight (Pounds): 149 General Appearance: no apparent distress EENT: normal ENT inspection Neck: supple Cardiovascular: normal rate Respiratory/Chest: decreased breath sounds Abdomen: normal bowel sounds, non tender, soft Extremities: non-tender Alejandro Chamberlain MD Jan 11, 2020 11:50
--- NOTE | 2020-01-11 13:11 | Consultation ---
History of Present Illness General Date patient seen: Jan 11, 2020 Time patient seen: 13:03 Chief Complaint: Abnormal Labs Present Illness HPI 64yo female with pmh of HTN, DM2 who presents with hypoglycemia,and found to have NAREN. Cardiology consulted for hypertension management Allergies: Coded Allergies: No Known Allergies (Unverified , 01/07/20) Medication History Scheduled Aspirin* (Aspirin*), 81 MG ORAL DAILY, (Reported) Lisinopril (Lisinopril*), 20 MG ORAL DAILY, (Reported) Miscellaneous Medications Glipizide (Glipizide Er), 2.5 MG PO, (Reported) Patient History Healthcare decision maker Resuscitation status Advanced Directive on File Review of Systems Constitutional: Reports: no symptoms Eye: Reports: no symptoms ENT: Reports: no symptoms Respiratory: Reports: no symptoms Cardiovascular: Reports: no symptoms Gastrointestinal: Reports: no symptoms Genitourinary: Reports: no symptoms Musculoskeletal: Reports: no symptoms Skin: Reports: no symptoms Psychiatric: Reports: no symptoms Neurological: Reports: no symptoms Endocrine: Reports: no symptoms Hematologic/Lymphatic: Reports: no symptoms Physical Exam General Appearance: no apparent distress, alert Lines, tubes and drains: peripheral HEENT: normocephalic, atraumatic Neck: non-tender, normal alignment, supple, normal inspection Respiratory/Chest: chest wall non-tender, lungs clear, normal breath sounds Cardiovascular/Chest: normal peripheral pulses, normal rate, regular rhythm Abdomen: normal bowel sounds, non tender, no organomegaly Extremities: normal range of motion, non-tender, normal inspection, no calf tenderness Skin Exam: normal pigmentation, warm/dry Neurologic: direct service provider II-XII grossly normal, no motor/sensory deficits Last 24 Hour Vital Signs Date Time Temp Pulse Resp B/P (MAP) Pulse Ox O2 Delivery O2 Flow Rate FiO2 01/11/20 12:00 99.5 71 19 164/75 (104) 97 71 01/11/20 09:00 Room Air 01/11/20 09:00 71 166/75 01/11/20 09:00 71 166/75 01/11/20 08:00 98.2 71 18 166/75 (105) 95 71 01/11/20 06:08 71 152/68 (96) 01/11/20 04:09 198/86 01/11/20 04:09 198/86 01/11/20 04:00 98.2 71 20 198/86 (123) 93 71 01/11/20 00:00 99.1 71 20 147/75 (99) 93 71 01/10/20 20:40 Room Air 01/10/20 20:17 86 160/57 01/10/20 20:00 97.9 86 20 160/57 (91) 93 86 01/10/20 17:57 74 145/66 01/10/20 16:00 98.1 74 20 145/66 (92) 94 Intake and Output 01/10/20 01/11/20 19:00 07:00 Intake Total 720 ml 420 ml Output Total 850 ml Balance 720 ml -430 ml Intake Oral 720 ml IV Total 60 ml Other 360 ml Output Urine Total 850 ml # Bowel Movements 3 1 Laboratory Tests Test 01/11/20 04:45 White Blood Count 10.6 K/UL (4.8-10.8) Red Blood Count 2.76 M/UL (4.20-5.40) L Hemoglobin 8.2 G/DL (12.0-16.0) L Hematocrit 25.5 % (37.0-47.0) L Mean Corpuscular Volume 92 FL (80-99) Mean Corpuscular Hemoglobin 29.6 PG (27.0-31.0) Mean Corpuscular Hemoglobin Concent 32.0 G/DL (32.0-36.0) Red Cell Distribution Width 12.1 % (11.6-14.8) Platelet Count 292 K/UL (150-450) Mean Platelet Volume 5.8 FL (6.5-10.1) L Neutrophils (%) (Auto) 70.3 % (45.0-75.0) Lymphocytes (%) (Auto) 12.3 % (20.0-45.0) L Monocytes (%) (Auto) 11.9 % (1.0-10.0) H Eosinophils (%) (Auto) 4.7 % (0.0-3.0) H Basophils (%) (Auto) 0.8 % (0.0-2.0) Sodium Level 137 MMOL/L (136-145) Potassium Level 3.1 MMOL/L (3.5-5.1) L Chloride Level 99 MMOL/L (98-107) Carbon Dioxide Level 27 MMOL/L (21-32) Anion Gap 11 mmol/L (5-15) Blood Urea Nitrogen 41 mg/dL (7-18) H Creatinine 5.8 MG/DL (0.55-1.30) H Estimat Glomerular Filtration Rate 7.3 mL/min (>60) Glucose Level 101 MG/DL (74-106) Calcium Level 7.5 MG/DL (8.5-10.1) L Phosphorus Level 5.1 MG/DL (2.5-4.9) H Magnesium Level 1.9 MG/DL (1.8-2.4) Hepatitis A IgM Antibody Pending Hepatitis B Surface Antigen Pending Hepatitis B Core IgM Antibody Pending Hepatitis C Antibody Pending Height (Feet): 4 Height (Inches): 11.00 Weight (Pounds): 149 Medications Current Medications Medications (Trade) Dose Ordered Sig/[place] Route PRN Reason Start Time Stop Time Status Last Admin Dose Admin Acetaminophen (Tylenol) 650 mg Q6H PRN ORAL MILD/TEMP 01/09/20 16:34 02/08/20 16:33 Amlodipine Besylate (Norvasc) 10 mg DAILY ORAL 01/10/20 09:00 02/06/20 10:59 01/10/20 09:09 Aspirin (ASA) 81 mg DAILY ORAL 01/10/20 09:00 02/22/20 08:59 01/11/20 08:49 Carvedilol (Coreg) 12.5 mg EVERY 12 HOURS ORAL 01/10/20 16:45 02/09/20 16:44 01/10/20 20:17 Chlorhexidine Gluconate (Barbara-Hex 2%) 1 applic DAILY@1999 TOPIC 01/10/20 20:00 04/09/20 19:59 01/10/20 20:17 Clonidine HCl (Catapres Tab) 0.1 mg Q2H PRN ORAL For High Blood Pressure 01/10/20 06:15 04/09/20 06:14 01/11/20 04:09 Dextrose (Dextrose 50%) 25 ml Q30M PRN IV Hypoglycemia 01/09/20 16:35 04/08/20 16:34 Dextrose (Dextrose 50%) 50 ml Q30M PRN IV Hypoglycemia 01/09/20 16:35 04/08/20 16:34 Docusate Sodium (Colace) 100 mg TWICE A DAY ORAL 01/09/20 18:00 02/07/20 11:59 01/11/20 08:49 Hydralazine HCl (Apresoline) 25 mg Q4H PRN ORAL For High Blood Pressure 01/09/20 20:15 04/08/20 20:14 01/11/20 04:09 Insulin Aspart (NovoLOG) AC+HS SUBQ 01/10/20 11:30 04/06/20 12:59 Iron Sucrose 100 mg/Sodium Chloride 60 ml @ 240 mls/hr BEDTIME IV 01/09/20 21:00 01/12/20 21:14 01/10/20 20:17 Lactulose (Cephulac) 20 gm DAILY ORAL 01/10/20 09:00 02/08/20 10:29 01/11/20 08:49 Ondansetron HCl (Zofran) 4 mg Q4H PRN IVP Nausea & Vomiting 01/09/20 16:35 02/08/20 16:34 Polyethylene Glycol (Miralax) 17 gm BEDTIME ORAL 01/09/20 21:00 02/07/20 20:59 01/10/20 20:17 Sevelamer Carbonate (Renvela) 800 mg THREE TIMES A DAY ORAL 01/09/20 18:00 04/07/20 08:59 01/11/20 12:07 Assessment/Plan Status: stable Assessment/Plan: Assessment/Plan Problem List: (1) Renal insufficiency (2) Anemia (3) Hypertension (4) Hypoglycemia secondary to sulfonylurea (5) Hyperkalemia/hyponatremia 1-Hold lisinopril until creatinin <1.5 2- monitor electrolytes 3- IV fluids 4- Echocardiogram to evaluate for hypertensive heart disease LVEF normal, PAH 48 mmHg moderate MR - will need fluid removal to lower pressures and MR 5-Outpatient stress test given cardiac risk factors 6-Continue norvasc 10 mg qHS 7-Continue coreg 12.5 mg BID 8-DASH diet 9-Start cardura 2 mg for better BP control goal <130/80 Max Corbett MD Jan 11, 2020 13:11
--- NOTE | 2020-01-11 13:43 | Hematology/Onc Progress Note ---
Assessment/Plan Assessment/Plan Assessment and Recs # Anemia due to severe iron deficiency, ferritin of only 35 --> r/o malignancy, slow gi bleed, cea ordered --> as per gi recs, endoscopy as needed --> occult blood prn --> s/p 1 unit prbc 01/08 --> iv iron has been started x 5 days --> epogen consider to start given renal status after ferritin is >500 # NAREN On CKD-- ? ESRD due to DM and HTN- ua with 4+ proteinuria --> per renal, line placement --> hd prn basis # Hyperkalemia- improved # Hypoglycemia # hyperphosphetemia # HTN- accelerated --> cards prn # DM # HLD Appreciate consultation and dw RN Subjective Constitutional: Denies: no symptoms, chills, fever, malaise, weakness, other HEENT: Denies: no symptoms, eye pain, blurred vision, tearing, double vision, ear pain, ear discharge, nose pain, nose congestion, throat pain, throat swelling, mouth pain, mouth swelling, other Cardiovascular: Denies: no symptoms, chest pain, edema, irregular heart rate, lightheadedness, palpitations, syncope, other Respiratory: Denies: no symptoms, cough, shortness of breath, SOB with excertion, SOB at rest, sputum, wheezing, other Gastrointestinal/Abdominal: Denies: no symptoms, abdomen distended, abdominal pain, black stools, tarry stools, blood in stool, constipated, diarrhea, difficulty swallowing, nausea, poor appetite, poor fluid intake, rectal bleeding , vomiting, other Genitourinary: Denies: no symptoms, burning, discharge, frequency, flank pain, hematuria, incontinence, pain, urgency, other Endocrine: Denies: no symptoms, excessive sweating, flushing, intolerance to cold, intolerance to heat, increased hunger, increased thirst, increased urine, unexplained weight gain, unexplained weight loss, other Allergies: Coded Allergies: No Known Allergies (Unverified , 01/07/20) Subjective 01/10 labs noted, no bleeding, on iv iron Objective Objective Current Medications Medications (Trade) Dose Ordered Sig/[place] Route PRN Reason Start Time Stop Time Status Last Admin Dose Admin Acetaminophen (Tylenol) 650 mg Q6H PRN ORAL MILD/TEMP 01/09/20 16:34 02/08/20 16:33 Amlodipine Besylate (Norvasc) 10 mg DAILY ORAL 01/10/20 09:00 02/06/20 10:59 01/10/20 09:09 Aspirin (ASA) 81 mg DAILY ORAL 01/10/20 09:00 02/22/20 08:59 01/11/20 08:49 Carvedilol (Coreg) 12.5 mg EVERY 12 HOURS ORAL 01/10/20 16:45 02/09/20 16:44 01/10/20 20:17 Chlorhexidine Gluconate (Barbara-Hex 2%) 1 applic DAILY@2000 TOPIC 01/10/20 20:00 04/09/20 19:59 01/10/20 20:17 Clonidine HCl (Catapres Tab) 0.1 mg Q2H PRN ORAL For High Blood Pressure 01/10/20 06:15 04/09/20 06:14 01/11/20 04:09 Dextrose (Dextrose 50%) 25 ml Q30M PRN IV Hypoglycemia 01/09/20 16:35 04/08/20 16:34 Dextrose (Dextrose 50%) 50 ml Q30M PRN IV Hypoglycemia 01/09/20 16:35 04/08/20 16:34 Docusate Sodium (Colace) 100 mg TWICE A DAY ORAL 01/09/20 18:00 02/07/20 11:59 01/11/20 08:49 Doxazosin Mesylate (Cardura) 1 mg DAILY ORAL 01/12/20 09:00 02/11/20 08:59 Hydralazine HCl (Apresoline) 25 mg Q4H PRN ORAL For High Blood Pressure 01/09/20 20:15 04/08/20 20:14 01/11/20 04:09 Insulin Aspart (NovoLOG) AC+HS SUBQ 01/10/20 11:30 04/06/20 12:59 Iron Sucrose 100 mg/Sodium Chloride 60 ml @ 240 mls/hr BEDTIME IV 01/09/20 21:00 01/12/20 21:14 01/10/20 20:17 Lactulose (Cephulac) 20 gm DAILY ORAL 01/10/20 09:00 02/08/20 10:29 01/11/20 08:49 Ondansetron HCl (Zofran) 4 mg Q4H PRN IVP Nausea & Vomiting 01/09/20 16:35 02/08/20 16:34 Polyethylene Glycol (Miralax) 17 gm BEDTIME ORAL 01/09/20 21:00 02/07/20 20:59 01/10/20 20:17 Sevelamer Carbonate (Renvela) 800 mg THREE TIMES A DAY ORAL 01/09/20 18:00 04/07/20 08:59 01/11/20 12:07 Last 24 Hour Vital Signs Date Time Temp Pulse Resp B/P (MAP) Pulse Ox O2 Delivery O2 Flow Rate FiO2 01/11/20 12:00 99.5 71 19 164/75 (104) 97 71 01/11/20 09:00 Room Air 01/11/20 09:00 71 166/75 01/11/20 09:00 71 166/75 01/11/20 08:00 98.2 71 18 166/75 (105) 95 71 01/11/20 06:08 71 152/68 (96) 01/11/20 04:09 198/86 01/11/20 04:09 198/86 01/11/20 04:00 98.2 71 20 198/86 (123) 93 71 01/11/20 00:00 99.1 71 20 147/75 (99) 93 71 01/10/20 20:40 Room Air 01/10/20 20:17 86 160/57 01/10/20 20:00 97.9 86 20 160/57 (91) 93 86 01/10/20 17:57 74 145/66 01/10/20 16:00 98.1 74 20 145/66 (92) 94 01/10/20 12:00 96.8 74 20 157/68 (97) 94 01/10/20 09:10 164/77 01/10/20 09:09 81 164/77 01/10/20 09:00 Room Air 01/10/20 08:00 98.6 81 20 164/77 (106) 96 01/10/20 06:48 198/86 01/10/20 06:44 87 198/86 (123) 01/10/20 04:17 199/88 01/10/20 04:00 99.5 85 22 199/88 (125) 97 01/10/20 00:46 205/94 01/10/20 00:39 98.8 93 20 205/94 (131) 94 01/09/20 21:00 Room Air 01/09/20 20:45 209/89 01/09/20 20:30 98.1 89 18 209/ (129) 95 01/09/20 16:32 97.5 85 18 159/80 (106) 95 01/09/20 16:10 Room Air 01/09/20 14:13 88 15 2.0 01/09/20 14:05 88 15 183/90 (121) 01/09/20 14:05 98.5 92 17 187/90 (122) 93 01/09/20 13:53 93 17 Intake and Output 01/10/20 01/11/20 19:00 07:00 Intake Total 720 ml 420 ml Output Total 850 ml Balance 720 ml -430 ml Intake Oral 720 ml IV Total 60 ml Other 360 ml Output Urine Total 850 ml # Bowel Movements 3 1 Labs Test 01/08/20 15:20 01/08/20 16:57 01/09/20 09:25 01/09/20 09:49 Sodium Level 140 MMOL/L (136-145) 140 MMOL/L (136-145) Potassium Level 4.8 MMOL/L (3.5-5.1) 4.5 MMOL/L (3.5-5.1) Chloride Level 104 MMOL/L (98-107) 104 MMOL/L (98-107) Carbon Dioxide Level 24 MMOL/L (21-32) 25 MMOL/L (21-32) Anion Gap 12 mmol/L (5-15) 11 mmol/L (5-15) Blood Urea Nitrogen 97 mg/dL (7-18) 94 mg/dL (7-18) Creatinine 8.6 MG/DL (0.55-1.30) 8.7 MG/DL (0.55-1.30) Estimat Glomerular Filtration Rate 4.7 mL/min (>60) 4.6 mL/min (>60) Glucose Level 100 MG/DL (74-106) 103 MG/DL (74-106) Lactic Acid Level 0.60 mmol/L (0.4-2.0) Calcium Level 7.4 MG/DL (8.5-10.1) 7.4 MG/DL (8.5-10.1) Urine Color Pale yellow Urine Appearance Clear Urine pH 6 (4.5-8.0) Urine Specific Effort 1.010 (1.005-1.035) Urine Protein 4+ (NEGATIVE) Urine Glucose (UA) 1+ (NEGATIVE) Urine Ketones Negative (NEGATIVE) Urine Blood 4+ (NEGATIVE) Urine Nitrite Negative (NEGATIVE) Urine Bilirubin Negative (NEGATIVE) Urine Urobilinogen Normal MG/DL (0.0-1.0) Urine Leukocyte Esterase 1+ (NEGATIVE) Urine RBC 5-10 /HPF (0 - 2) Urine WBC 0-2 /HPF (0 - 2) Urine Squamous Epithelial Cells Occasional /LPF Urine Bacteria None /HPF (NONE) White Blood Count 11.2 K/UL (4.8-10.8) Red Blood Count 2.06 M/UL (4.20-5.40) Hemoglobin 6.1 G/DL (12.0-16.0) Hematocrit 19.1 % (37.0-47.0) Mean Corpuscular Volume 93 FL (80-99) Mean Corpuscular Hemoglobin 29.7 PG (27.0-31.0) Mean Corpuscular Hemoglobin Concent 31.9 G/DL (32.0-36.0) Red Cell Distribution Width 12.7 % (11.6-14.8) Platelet Count 323 K/UL (150-450) Mean Platelet Volume 5.2 FL (6.5-10.1) Neutrophils (%) (Auto) % (45.0-75.0) Lymphocytes (%) (Auto) % (20.0-45.0) Monocytes (%) (Auto) % (1.0-10.0) Eosinophils (%) (Auto) % (0.0-3.0) Basophils (%) (Auto) % (0.0-2.0) Differential Total Cells Counted 100 Neutrophils % (Manual) 76 % (45-75) Lymphocytes % (Manual) 14 % (20-45) Monocytes % (Manual) 3 % (1-10) Eosinophils % (Manual) 6 % (0-3) Basophils % (Manual) 1 % (0-2) Band Neutrophils 0 % (0-8) Platelet Estimate Adequate Platelet Morphology Normal Hypochromasia 4+ Anisocytosis 1+ Prothrombin Time 10.4 SEC (9.30-11.50) Prothromb Time International Ratio 0.9 (0.9-1.1) Activated Partial Thromboplast Time 27 SEC (23-33) Magnesium Level 2.3 MG/DL (1.8-2.4) POC Whole Blood Glucose 95 MG/DL (74-106) Test 01/09/20 12:15 01/09/20 12:56 01/10/20 05:15 01/11/20 04:45 Stool Occult Blood Negative (NEGATIVE) POC Whole Blood Glucose 97 MG/DL (74-106) White Blood Count 11.9 K/UL (4.8-10.8) 10.6 K/UL (4.8-10.8) Red Blood Count 3.08 M/UL (4.20-5.40) 2.76 M/UL (4.20-5.40) Hemoglobin 9.1 G/DL (12.0-16.0) 8.2 G/DL (12.0-16.0) Hematocrit 28.4 % (37.0-47.0) 25.5 % (37.0-47.0) Mean Corpuscular Volume 92 FL (80-99) 92 FL (80-99) Mean Corpuscular Hemoglobin 29.5 PG (27.0-31.0) 29.6 PG (27.0-31.0) Mean Corpuscular Hemoglobin Concent 32.1 G/DL (32.0-36.0) 32.0 G/DL (32.0-36.0) Red Cell Distribution Width 12.8 % (11.6-14.8) 12.1 % (11.6-14.8) Platelet Count 307 K/UL (150-450) 292 K/UL (150-450) Mean Platelet Volume 6.0 FL (6.5-10.1) 5.8 FL (6.5-10.1) Neutrophils (%) (Auto) 76.1 % (45.0-75.0) 70.3 % (45.0-75.0) Lymphocytes (%) (Auto) 10.2 % (20.0-45.0) 12.3 % (20.0-45.0) Monocytes (%) (Auto) 11.6 % (1.0-10.0) 11.9 % (1.0-10.0) Eosinophils (%) (Auto) 1.6 % (0.0-3.0) 4.7 % (0.0-3.0) Basophils (%) (Auto) 0.6 % (0.0-2.0) 0.8 % (0.0-2.0) Sodium Level 140 MMOL/L (136-145) 137 MMOL/L (136-145) Potassium Level 3.3 MMOL/L (3.5-5.1) 3.1 MMOL/L (3.5-5.1) Chloride Level 102 MMOL/L (98-107) 99 MMOL/L (98-107) Carbon Dioxide Level 30 MMOL/L (21-32) 27 MMOL/L (21-32) Anion Gap 8 mmol/L (5-15) 11 mmol/L (5-15) Blood Urea Nitrogen 39 mg/dL (7-18) 41 mg/dL (7-18) Creatinine 5.0 MG/DL (0.55-1.30) 5.8 MG/DL (0.55-1.30) Estimat Glomerular Filtration Rate 8.7 mL/min (>60) 7.3 mL/min (>60) Glucose Level 120 MG/DL (74-106) 101 MG/DL (74-106) Calcium Level 7.8 MG/DL (8.5-10.1) 7.5 MG/DL (8.5-10.1) Phosphorus Level 5.2 MG/DL (2.5-4.9) 5.1 MG/DL (2.5-4.9) Magnesium Level 2.1 MG/DL (1.8-2.4) 1.9 MG/DL (1.8-2.4) Height (Feet): 4 Height (Inches): 11.00 Weight (Pounds): 149 Objective Physical Exam General: alert, cooperative, no distress Heent: normocephalic, without obvious abnormality Neck: supple, symmetrical, trachea midline Lungs: clear to auscultation bilaterally Heart: regular rate and rhythm, S1 Abdomen: soft, non-tender, non-distended Extremities: extremities normal Pulses: 2+ and symmetric Skin: skin color, texture, turgor normal Neurologic: grossly normal, no focal deficits Micheal Forman MD Jan 11, 2020 13:43
--- NOTE | 2020-01-11 19:33 | Surgery Progress Note ---
Surgery Progress Note Subjective Additional Comments doing well comfortable labs stable afebrile Objective Last 24 Hour Vital Signs Date Time Temp Pulse Resp B/P (MAP) Pulse Ox O2 Delivery O2 Flow Rate FiO2 01/11/20 18:06 82 155/78 (103) 01/11/20 17:43 192/80 01/11/20 17:38 74 192/80 (117) 01/11/20 16:01 230/90 01/11/20 16:00 98.2 80 19 230/90 (136) 96 80 01/11/20 14:50 186/87 01/11/20 14:48 186/87 (120) 01/11/20 12:00 99.5 71 19 164/75 (104) 97 71 01/11/20 09:00 Room Air 01/11/20 09:00 71 166/75 01/11/20 09:00 71 166/75 01/11/20 08:00 98.2 71 18 166/75 (105) 95 71 01/11/20 06:08 71 152/68 (96) 01/11/20 04:09 198/86 01/11/20 04:09 198/86 01/11/20 04:00 98.2 71 20 198/86 (123) 93 71 01/11/20 00:00 99.1 71 20 147/75 (99) 93 71 01/10/20 20:40 Room Air 01/10/20 20:17 86 160/57 01/10/20 20:00 97.9 86 20 160/57 (91) 93 86 I&O Intake and Output 01/10/20 01/11/20 19:00 07:00 Intake Total 720 ml 420 ml Output Total 850 ml Balance 720 ml -430 ml Intake Oral 720 ml IV Total 60 ml Other 360 ml Output Urine Total 850 ml # Bowel Movements 3 1 Dressing: other Wound: other Drains: other Cardiovascular: RSR Respiratory: decreased breath sounds Abdomen: soft, non-tender, present bowel sounds Extremities: no cyanosis Laboratory Tests Test 01/11/20 04:45 White Blood Count 10.6 K/UL (4.8-10.8) Red Blood Count 2.76 M/UL (4.20-5.40) L Hemoglobin 8.2 G/DL (12.0-16.0) L Hematocrit 25.5 % (37.0-47.0) L Mean Corpuscular Volume 92 FL (80-99) Mean Corpuscular Hemoglobin 29.6 PG (27.0-31.0) Mean Corpuscular Hemoglobin Concent 32.0 G/DL (32.0-36.0) Red Cell Distribution Width 12.1 % (11.6-14.8) Platelet Count 292 K/UL (150-450) Mean Platelet Volume 5.8 FL (6.5-10.1) L Neutrophils (%) (Auto) 70.3 % (45.0-75.0) Lymphocytes (%) (Auto) 12.3 % (20.0-45.0) L Monocytes (%) (Auto) 11.9 % (1.0-10.0) H Eosinophils (%) (Auto) 4.7 % (0.0-3.0) H Basophils (%) (Auto) 0.8 % (0.0-2.0) Sodium Level 137 MMOL/L (136-145) Potassium Level 3.1 MMOL/L (3.5-5.1) L Chloride Level 99 MMOL/L (98-107) Carbon Dioxide Level 27 MMOL/L (21-32) Anion Gap 11 mmol/L (5-15) Blood Urea Nitrogen 41 mg/dL (7-18) H Creatinine 5.8 MG/DL (0.55-1.30) H Estimat Glomerular Filtration Rate 7.3 mL/min (>60) Glucose Level 101 MG/DL (74-106) Calcium Level 7.5 MG/DL (8.5-10.1) L Phosphorus Level 5.1 MG/DL (2.5-4.9) H Magnesium Level 1.9 MG/DL (1.8-2.4) Hepatitis A IgM Antibody Pending Hepatitis B Surface Antigen Pending Hepatitis B Core IgM Antibody Pending Hepatitis C Antibody Pending Plan Problems: (1) Anemia Assessment & Plan: Transfuse PRN No active bleeding noted Trend H&H (2) Renal insufficiency Assessment & Plan: [age]-year-old female identified to have significant abnormal labs on admission elevated creatinine and BUN electrolytes. Discussed with nephrology patient in need of dialysis. Family has been contacted for consent given patient's current mental status but currently have not been decision as to care plan and goals of care Patient needs HD access for hemodialysis if family she was wishes Will await consent will be available for placement of catheter to initiate hemodialysis Thank you for let me participate patient's care family consented to line placement anemia transfuse with HD line placed right IJ temp HD (3) Hypertension (4) Hypoglycemia secondary to sulfonylurea Matheus Colvin Jan 11, 2020 19:33
[2020-01-11] MEDS: Dyna-Hex 2% Top Sol 2oz TOPIC SCH (20:35)
[2020-01-11] MEDS: Iron Sucrose 100 MG in NS 55 ML IV SCH (20:35)
[2020-01-11] MEDS: Miralax 17gm pkt ORAL SCH (20:35)
[2020-01-12] VITALS (7 sets, daily range): BP systolic 132–193; BP diastolic 71–83
[2020-01-12] MEDS: HydrALAZINE 25mg tab ORAL PRN (05:21)
[2020-01-12] MEDS: NovoLOG Insulin Flexpen SUBQ SCH ×4 (05:29→21:00)
[2020-01-12 05:58] LABS: BASOPHILS % (AUTO) 0.8 % (0.0-2.0); EOSINOPHILS % (AUTO) 5.2 % (0.0-3.0); HEMATOCRIT 26.6 % (37.0-47.0); HEMOGLOBIN 8.4 G/DL (12.0-16.0); LYMPHOCYTES % (AUTO) 14.8 % (20.0-45.0); MEAN CORPUSCULAR VOLUME 93 FL (80-99); MONOCYTES % (AUTO) 14.4 % (1.0-10.0); NEUTROPHILS % (AUTO) 64.7 % (45.0-75.0); PLATELET COUNT 279 K/UL (150-450); RED BLOOD COUNT 2.86 M/UL (4.20-5.40); RED CELL DISTRIBUTION WIDTH 11.9 % (11.6-14.8); WHITE BLOOD COUNT 9.3 K/UL (4.8-10.8)
[2020-01-12 06:08] LABS: ANION GAP 4 mmol/L (5-15); BLOOD UREA NITROGEN 19 mg/dL (7-18); CALCIUM 7.7 MG/DL (8.5-10.1); CARBON DIOXIDE 31 MMOL/L (21-32); CHLORIDE 103 MMOL/L (98-107); CREATININE 3.7 MG/DL (0.55-1.30); POTASSIUM 3.8 MMOL/L (3.5-5.1); SODIUM 138 MMOL/L (136-145)
--- NOTE | 2020-01-12 07:21 | General Progress Note ---
Assessment/Plan Problem List: (1) Hypertension ICD Codes: I10 - Essential (primary) hypertension SNOMED: 95428215 (2) Renal insufficiency ICD Codes: N28.9 - Disorder of kidney and ureter, unspecified SNOMED: 395938553, 524956460 (3) Anemia ICD Codes: D64.9 - Anemia, unspecified SNOMED: 746483801 (4) Hypoglycemia secondary to sulfonylurea ICD Codes: T38.3X1A - Poisoning by insulin and oral hypoglycemic [antidiabetic ] drugs, accidental (unintentional), initialencounter; E16.0 - Drug-induced hypoglycemia without coma SNOMED: 188424518, 708648371 Status: stable Assessment/Plan: iv iron colace and miralax lactulose fu stool ob>>> neg anemia most likely related to kidney DZ GI procedures if needed Subjective ROS Limited/Unobtainable: No Allergies: Coded Allergies: No Known Allergies (Unverified , 01/07/20) Objective Last 24 Hour Vital Signs Date Time Temp Pulse Resp B/P (MAP) Pulse Ox O2 Delivery O2 Flow Rate FiO2 01/12/20 06:34 73 164/73 (103) 01/12/20 05:21 180/82 01/12/20 04:00 98.5 78 18 180/82 (114) 95 78 01/12/20 00:00 98.0 77 18 178/81 (113) 95 77 01/11/20 22:58 74 174/68 (103) 01/11/20 22:55 174/68 01/11/20 21:00 Room Air 01/11/20 20:35 76 192/85 01/11/20 20:00 98.5 76 20 192/85 (120) 94 76 01/11/20 18:06 82 155/78 (103) 01/11/20 17:43 192/80 01/11/20 17:38 74 192/80 (117) 01/11/20 16:01 230/90 01/11/20 16:00 98.2 80 19 230/90 (136) 96 80 01/11/20 14:50 186/87 01/11/20 14:48 186/87 (120) 01/11/20 12:00 99.5 71 19 164/75 (104) 97 71 01/11/20 09:00 Room Air 01/11/20 09:00 71 166/75 01/11/20 09:00 71 166/75 01/11/20 08:00 98.2 71 18 166/75 (105) 95 71 Intake and Output 01/11/20 01/12/20 19:00 07:00 Intake Total 460 ml Output Total 2000 ml 450 ml Balance -1540 ml -450 ml Intake Oral 460 ml Output Urine Total 450 ml Hemodialysis UF 2000 ml # Voids 1 # Bowel Movements 1 1 Laboratory Tests 01/12/20 05:05: White Blood Count 9.3, Red Blood Count 2.86L, Hemoglobin 8.4L, Hematocrit 26.6L , Mean Corpuscular Volume 93, Mean Corpuscular Hemoglobin 29.5, Mean Corpuscular Hemoglobin Concent 31.8L, Red Cell Distribution Width 11.9, Platelet Count 279, Mean Platelet Volume 6.0L, Neutrophils (%) (Auto) 64.7, Lymphocytes (%) (Auto) 14.8L, Monocytes (%) (Auto) 14.4H, Eosinophils (%) (Auto ) 5.2H, Basophils (%) (Auto) 0.8, Sodium Level 138, Potassium Level 3.8, Chloride Level 103, Carbon Dioxide Level 31, Anion Gap 4L, Blood Urea Nitrogen 19H, Creatinine 3.7H, Estimat Glomerular Filtration Rate 12.3, Glucose Level 109H, Calcium Level 7.7L Height (Feet): 4 Height (Inches): 11.00 Weight (Pounds): 149 General Appearance: alert EENT: normal ENT inspection Neck: supple Cardiovascular: normal rate Respiratory/Chest: decreased breath sounds Abdomen: normal bowel sounds, non tender, soft Extremities: non-tender Alejandro Chamberlain MD Jan 12, 2020 07:21
[2020-01-12] MEDS: Doxazosin 1mg Tab ORAL SCH (09:38)
[2020-01-12] MEDS: Lactulose 20gm/30ml UDC ORAL SCH ×2 (09:38→09:43)
[2020-01-12] MEDS: Docusate 100mg cap ORAL SCH ×2 (09:39→17:30)
[2020-01-12] MEDS: Carvedilol 12.5mg tab ORAL SCH ×2 (09:39→20:20)
[2020-01-12] MEDS: Aspirin Baby 81mg ORAL SCH (09:39)
--- NOTE | 2020-01-12 11:51 | Surgery Progress Note ---
Surgery Progress Note Subjective Symptoms: improved, tolerating diet, voiding well, passing flatus Objective Last 24 Hour Vital Signs Date Time Temp Pulse Resp B/P (MAP) Pulse Ox O2 Delivery O2 Flow Rate FiO2 01/12/20 09:39 78 193/83 01/12/20 09:39 78 193/83 01/12/20 09:00 Room Air 01/12/20 08:00 99.7 78 18 193/83 (119) 97 01/12/20 06:34 73 164/73 (103) 01/12/20 05:21 180/82 01/12/20 04:00 98.5 78 18 180/82 (114) 95 78 01/12/20 00:00 98.0 77 18 178/81 (113) 95 77 01/11/20 22:58 74 174/68 (103) 01/11/20 22:55 174/68 01/11/20 21:00 Room Air 01/11/20 20:35 76 192/85 01/11/20 20:00 98.5 76 20 192/85 (120) 94 76 01/11/20 18:06 82 155/78 (103) 01/11/20 17:43 192/80 01/11/20 17:38 74 192/80 (117) 01/11/20 16:01 230/90 01/11/20 16:00 98.2 80 19 230/90 (136) 96 80 01/11/20 14:50 186/87 01/11/20 14:48 186/87 (120) 01/11/20 12:00 99.5 71 19 164/75 (104) 97 71 I&O Intake and Output 01/11/20 01/12/20 19:00 07:00 Intake Total 460 ml Output Total 2000 ml 450 ml Balance -1540 ml -450 ml Intake Oral 460 ml Output Urine Total 450 ml Hemodialysis UF 2000 ml # Voids 1 # Bowel Movements 1 1 Dressing: dry Wound: clean Cardiovascular: RSR Respiratory: clear Abdomen: soft, non-tender, present bowel sounds Extremities: no edema, no tenderness, no cyanosis Laboratory Tests Test 01/12/20 05:05 White Blood Count 9.3 K/UL (4.8-10.8) Red Blood Count 2.86 M/UL (4.20-5.40) L Hemoglobin 8.4 G/DL (12.0-16.0) L Hematocrit 26.6 % (37.0-47.0) L Mean Corpuscular Volume 93 FL (80-99) Mean Corpuscular Hemoglobin 29.5 PG (27.0-31.0) Mean Corpuscular Hemoglobin Concent 31.8 G/DL (32.0-36.0) L Red Cell Distribution Width 11.9 % (11.6-14.8) Platelet Count 279 K/UL (150-450) Mean Platelet Volume 6.0 FL (6.5-10.1) L Neutrophils (%) (Auto) 64.7 % (45.0-75.0) Lymphocytes (%) (Auto) 14.8 % (20.0-45.0) L Monocytes (%) (Auto) 14.4 % (1.0-10.0) H Eosinophils (%) (Auto) 5.2 % (0.0-3.0) H Basophils (%) (Auto) 0.8 % (0.0-2.0) Sodium Level 138 MMOL/L (136-145) Potassium Level 3.8 MMOL/L (3.5-5.1) Chloride Level 103 MMOL/L (98-107) Carbon Dioxide Level 31 MMOL/L (21-32) Anion Gap 4 mmol/L (5-15) L Blood Urea Nitrogen 19 mg/dL (7-18) H Creatinine 3.7 MG/DL (0.55-1.30) H Estimat Glomerular Filtration Rate 12.3 mL/min (>60) Glucose Level 109 MG/DL (74-106) H Calcium Level 7.7 MG/DL (8.5-10.1) L Plan Problems: (1) Anemia Assessment & Plan: Transfuse PRN No active bleeding noted Trend H&H (2) Renal insufficiency Assessment & Plan: [age]-year-old female identified to have significant abnormal labs on admission elevated creatinine and BUN electrolytes. Discussed with nephrology patient in need of dialysis. Family has been contacted for consent given patient's current mental status but currently have not been decision as to care plan and goals of care Patient needs HD access for hemodialysis if family she was wishes Will await consent will be available for placement of catheter to initiate hemodialysis Thank you for let me participate patient's care family consented to line placement anemia transfuse with HD line placed right IJ temp HD (3) Hypertension (4) Hypoglycemia secondary to sulfonylurea Matheus Colvin Jan 12, 2020 11:51
--- NOTE | 2020-01-12 14:50 | General Progress Note ---
Assessment/Plan Problem List: (1) Renal insufficiency ICD Codes: N28.9 - Disorder of kidney and ureter, unspecified SNOMED: 999632471, 056218816 (2) Anemia ICD Codes: D64.9 - Anemia, unspecified SNOMED: 288302196 (3) Hypertension ICD Codes: I10 - Essential (primary) hypertension SNOMED: 03486240 (4) Hypoglycemia secondary to sulfonylurea ICD Codes: T38.3X1A - Poisoning by insulin and oral hypoglycemic [antidiabetic ] drugs, accidental (unintentional), initialencounter; E16.0 - Drug-induced hypoglycemia without coma SNOMED: 997169575, 726302532 Status: stable Assessment/Plan: 64yo female with pmh of HTN, DM2 who presents with hypoglycemia,and found to have NAREN. # NAREN vs NAREN on CKD - unclear baseline Cr. BUN 80s/Cr 7's. Pt likely with CKD 2/ 2 underlying diabetes and HTN # Hyperkalemia # Hyponatremia, hypervolemic - Renal consulted - Hold lisinopril - Kayexylate x1 today - Trend BMP/Mg/Phos - Check renal U/S: renal disease, no signs of post-obstruction - HD per renal -General surgery consult, for Eduardo placed 01/08 -Discussed with nephrology, will monitor urine output and continue dialysis, with possible discharge early next week # Symptomatic hypoglycemia - BG 30s - likely 2/2 increased dose of glipizide, resolved # Acute encephalopathy # Diabetes mellitus type 2 - Hold all hypoglycemic agents - SSI - s/p D10W gtt in ED - f/u Endo consult, appreciate recs: Continue off any hypoglycemic agents # Fever resolved - asymptomatic - blood cultures x 2, negative to date, follow-up preliminary, follow-up final - lactic acid within normal limits - f/u CXR negative - ordered COVID, negative # Anemia -Trend CBC -Check FOBT from stool -Iron panel -Transfuse for hemoglobin less than 7 -GI consult, appreciate recommendations -Status post transfusion with good hemoglobin response # HTN - Hold lisinopril 2/2 NAREN - Amlodipine 10mg daily started -Continue Coreg 12.5 mg p.o. twice daily-> increased from 12.5 to 25 mg BID 01/11 ; will defer to cards -Cardiology consult, appreciate recommendations -TTE normal ejection fraction DVT Prophylaxis: SCD, HSQ Code Status: Full Hospital Classification Declaration: Based on this initial evaluation, and depending on the patient's clinical course, I anticipate that this patient will require hospitalization for 2-3 days for hypoglycemia, NAREN, and close respiratory/hemodynamic monitoring. Disposition: Once the patient is stable to leave the hospital, I anticipate the patient will likely be discharged to the following environment: home with HH vs SNF I spent 38 minutes on this patient's case, and 35 minutes were dedicated to counseling and/or care coordination. Discussed with patient/family, nursing staff, renal regarding clinical status, treatment course, and disposition planning. I spent an additional 38 minutes on reviewing patient's chart from admission. This includes review of imaging, labs, notes, and interpretation of results. Subjective Date patient seen: Jan 12, 2020 Time patient seen: 14:30 Allergies: Coded Allergies: No Known Allergies (Unverified , 01/07/20) Subjective Patient states she is doing well good UO HD yesterday cr improved hgb stable sbp > 190 Objective Last 24 Hour Vital Signs Date Time Temp Pulse Resp B/P (MAP) Pulse Ox O2 Delivery O2 Flow Rate FiO2 01/12/20 13:22 168/79 01/12/20 12:00 97.2 72 20 168/79 (108) 95 01/12/20 09:39 78 193/83 01/12/20 09:39 78 193/83 01/12/20 09:00 Room Air 01/12/20 08:00 99.7 78 18 193/83 (119) 97 01/12/20 06:34 73 164/73 (103) 01/12/20 05:21 180/82 01/12/20 04:00 98.5 78 18 180/82 (114) 95 78 01/12/20 00:00 98.0 77 18 178/81 (113) 95 77 01/11/20 22:58 74 174/68 (103) 01/11/20 22:55 174/68 01/11/20 21:00 Room Air 01/11/20 20:35 76 192/85 01/11/20 20:00 98.5 76 20 192/85 (120) 94 76 01/11/20 18:06 82 155/78 (103) 01/11/20 17:43 192/80 01/11/20 17:38 74 192/80 (117) 01/11/20 16:01 230/90 01/11/20 16:00 98.2 80 19 230/90 (136) 96 80 01/11/20 14:50 186/87 Intake and Output 01/11/20 01/12/20 19:00 07:00 Intake Total 460 ml Output Total 2000 ml 450 ml Balance -1540 ml -450 ml Intake Oral 460 ml Output Urine Total 450 ml Hemodialysis UF 2000 ml # Voids 1 # Bowel Movements 1 1 Laboratory Tests 01/12/20 05:05: White Blood Count 9.3, Red Blood Count 2.86L, Hemoglobin 8.4L, Hematocrit 26.6L , Mean Corpuscular Volume 93, Mean Corpuscular Hemoglobin 29.5, Mean Corpuscular Hemoglobin Concent 31.8L, Red Cell Distribution Width 11.9, Platelet Count 279, Mean Platelet Volume 6.0L, Neutrophils (%) (Auto) 64.7, Lymphocytes (%) (Auto) 14.8L, Monocytes (%) (Auto) 14.4H, Eosinophils (%) (Auto ) 5.2H, Basophils (%) (Auto) 0.8, Sodium Level 138, Potassium Level 3.8, Chloride Level 103, Carbon Dioxide Level 31, Anion Gap 4L, Blood Urea Nitrogen 19H, Creatinine 3.7H, Estimat Glomerular Filtration Rate 12.3, Glucose Level 109H, Calcium Level 7.7L Height (Feet): 4 Height (Inches): 11.00 Weight (Pounds): 149 Objective GENERAL: No acute distress, appears comfortable, alert HEENT: NCAT, non-icteric eyes, pupils PERRLA Neck: No cervical lymphadenopathy, trachea midline CV: Tunneled catheter noted on right chest no hematoma, regular rate and rhythm , no murmurs rubs or gallops RESP: Clear to auscultation bilaterally, no wheezes/rhonchi/crackles ABD: soft, non-distended, no TTP EXT: Normal muscle tone, +5/5 muscle strength NEURO: No obvious deficits, alert and oriented x3 Ny Pittman DO Jan 12, 2020 14:50
[2020-01-12] MEDS: Miralax 17gm pkt ORAL SCH (20:15)
[2020-01-12] MEDS: Dyna-Hex 2% Top Sol 2oz TOPIC SCH (20:20)
[2020-01-12] MEDS: Iron Sucrose 100 MG in NS 55 ML IV SCH (20:24)
[2020-01-13] VITALS: BP 142/67
[2020-01-13 04:00] VITALS: BP 153/70
[2020-01-13] MEDS: NovoLOG Insulin Flexpen SUBQ SCH ×4 (06:17→20:43)
[2020-01-13 06:34] LABS: BASOPHILS % (AUTO) 1.6 % (0.0-2.0); HEMATOCRIT 25.9 % (37.0-47.0); HEMOGLOBIN 8.3 G/DL (12.0-16.0); LYMPHOCYTES % (AUTO) 13.2 % (20.0-45.0); MEAN CORPUSCULAR VOLUME 93 FL (80-99); MONOCYTES % (AUTO) 13.7 % (1.0-10.0); NEUTROPHILS % (AUTO) 63.5 % (45.0-75.0); PLATELET COUNT 270 K/UL (150-450); RED BLOOD COUNT 2.78 M/UL (4.20-5.40); WHITE BLOOD COUNT 8.9 K/UL (4.8-10.8)
[2020-01-13 06:55] LABS: ANION GAP 6 mmol/L (5-15); BLOOD UREA NITROGEN 23 mg/dL (7-18); CALCIUM 7.4 MG/DL (8.5-10.1); CARBON DIOXIDE 29 MMOL/L (21-32); CHLORIDE 103 MMOL/L (98-107); CREATININE 4.9 MG/DL (0.55-1.30); POTASSIUM 3.8 MMOL/L (3.5-5.1); SODIUM 138 MMOL/L (136-145)
[2020-01-13 08:00] VITALS: BP 164/79
--- NOTE | 2020-01-13 08:05 | General Progress Note ---
Assessment/Plan Problem List: (1) Hypertension ICD Codes: I10 - Essential (primary) hypertension SNOMED: 56126909 (2) Renal insufficiency ICD Codes: N28.9 - Disorder of kidney and ureter, unspecified SNOMED: 210405253, 529983367 (3) Anemia ICD Codes: D64.9 - Anemia, unspecified SNOMED: 458283541 (4) Hypoglycemia secondary to sulfonylurea ICD Codes: T38.3X1A - Poisoning by insulin and oral hypoglycemic [antidiabetic ] drugs, accidental (unintentional), initialencounter; E16.0 - Drug-induced hypoglycemia without coma SNOMED: 798819969, 305143875 Status: stable Assessment/Plan: iv iron colace and miralax lactulose fu stool ob>>> neg anemia most likely related to kidney DZ GI procedures if needed Subjective ROS Limited/Unobtainable: Yes Allergies: Coded Allergies: No Known Allergies (Unverified , 01/07/20) Objective Last 24 Hour Vital Signs Date Time Temp Pulse Resp B/P (MAP) Pulse Ox O2 Delivery O2 Flow Rate FiO2 01/13/20 04:00 98.0 72 18 153/70 (97) 97 01/13/20 00:00 98.6 70 20 142/67 (92) 96 01/12/20 21:00 Room Air 01/12/20 20:20 72 155/74 01/12/20 20:00 98.8 85 18 132/81 (98) 96 01/12/20 16:00 100.0 71 18 148/71 (96) 94 01/12/20 13:22 168/79 01/12/20 12:00 97.2 72 20 168/79 (108) 95 01/12/20 09:39 78 193/83 01/12/20 09:39 78 193/83 01/12/20 09:00 Room Air Intake and Output 01/12/20 01/13/20 19:00 07:00 Intake Total 1280 ml 300 ml Output Total 300 ml 400 ml Balance 980 ml -100 ml Intake Oral 1280 ml 240 ml IV Total 60 ml Output Urine Total 300 ml 400 ml # Bowel Movements 3 Laboratory Tests 01/13/20 05:45: White Blood Count 8.9, Red Blood Count 2.78L, Hemoglobin 8.3L, Hematocrit 25.9L , Mean Corpuscular Volume 93, Mean Corpuscular Hemoglobin 29.9, Mean Corpuscular Hemoglobin Concent 32.1, Red Cell Distribution Width 12.0, Platelet Count 270, Mean Platelet Volume 5.5L, Neutrophils (%) (Auto) 63.5, Lymphocytes ( %) (Auto) 13.2L, Monocytes (%) (Auto) 13.7H, Eosinophils (%) (Auto) 8.0H, Basophils (%) (Auto) 1.6, Sodium Level 138, Potassium Level 3.8, Chloride Level 103, Carbon Dioxide Level 29, Anion Gap 6, Blood Urea Nitrogen 23H, Creatinine 4.9H, Estimat Glomerular Filtration Rate 8.9, Glucose Level 99, Calcium Level 7.4L Height (Feet): 4 Height (Inches): 11.00 Weight (Pounds): 149 General Appearance: alert EENT: normal ENT inspection Neck: supple Cardiovascular: normal rate Respiratory/Chest: decreased breath sounds Abdomen: normal bowel sounds, non tender, soft Extremities: non-tender Alejandro Chamberlain MD Jan 13, 2020 08:04
[2020-01-13] MEDS: Lactulose 20gm/30ml UDC ORAL SCH (09:36)
[2020-01-13] MEDS: Aspirin Baby 81mg ORAL SCH (09:36)
[2020-01-13] MEDS: Carvedilol 12.5mg tab ORAL SCH ×2 (09:37→20:43)
[2020-01-13] MEDS: Doxazosin 1mg Tab ORAL SCH (09:37)
[2020-01-13] MEDS: Docusate 100mg cap ORAL SCH ×2 (09:37→18:00)
[2020-01-13 12:00] VITALS: BP 153/76
--- NOTE | 2020-01-13 12:52 | Nephrology Progress Note ---
Assessment/Plan Plan #NAREN vs NAREN On CKD-- ? ESRD due to DM and HTN- ua with 4+ proteinuria #Hyperkalemia- improved #Hypoglycemia #hyperphosphetemia #HTN- accelerated #DM #HLD #anemia of CKD? - lasix 80 IV today - next HD tomorrow - monitor BMP and UOP over the weekend - placed mcgrath- monitor UOP - check renal US-> echogenic kidneys - prbc transfusion prn - IV iron - amlodipine 10mg daily - hydralazine PRN for now - sevelamer 800mgTID - avoid nephrotoxins - strict I&Os time spent 70 min, greater than 50% on care coordination and counseling. Subjective ROS Limited/Unobtainable: No Constitutional: Denies: no symptoms, chills, diaphoresis, fever, malaise, weakness, other HEENT: Denies: no symptoms, eye pain, blurred vision, tearing, double vision, ear pain, ear discharge, nose pain, nose congestion, throat pain, throat swelling, mouth pain, mouth swelling, other Genitourinary: Denies: no symptoms, burning, discharge, frequency, flank pain, hematuria, incontinence, pain, urgency, other Neurologic/Psychiatric: Denies: no symptoms, anxiety, depressed, emotional problems, headache, numbness, paresthesia, pre-existing deficit, seizure, tingling, tremors, weakness, other Subjective last HD tuesday will monitor renal function over the weekend Martina US:IMPRESSION: ECHOGENIC KIDNEYS REFLECTING MEDICAL RENAL DISEASE. NO OBSTRUCTIVE UROPATHY. G[place]STONE. Objective Objective Last 24 Hour Vital Signs Date Time Temp Pulse Resp B/P (MAP) Pulse Ox O2 Delivery O2 Flow Rate FiO2 01/13/20 12:00 97.7 90 18 153/76 (101) 92 01/13/20 09:37 74 164/79 01/13/20 09:37 74 164/79 01/13/20 09:00 Room Air 01/13/20 08:00 98.1 74 18 164/79 (107) 98 01/13/20 04:00 98.0 72 18 153/70 (97) 97 01/13/20 00:00 98.6 70 20 142/67 (92) 96 01/12/20 21:00 Room Air 01/12/20 20:20 72 155/74 01/12/20 20:00 98.8 85 18 132/81 (98) 96 01/12/20 16:00 100.0 71 18 148/71 (96) 94 01/12/20 13:22 168/79 Intake and Output 01/12/20 01/13/20 19:00 07:00 Intake Total 1280 ml 300 ml Output Total 300 ml 400 ml Balance 980 ml -100 ml Intake Oral 1280 ml 240 ml IV Total 60 ml Output Urine Total 300 ml 400 ml # Bowel Movements 3 Laboratory Tests 01/13/20 05:45: White Blood Count 8.9, Red Blood Count 2.78L, Hemoglobin 8.3L, Hematocrit 25.9L , Mean Corpuscular Volume 93, Mean Corpuscular Hemoglobin 29.9, Mean Corpuscular Hemoglobin Concent 32.1, Red Cell Distribution Width 12.0, Platelet Count 270, Mean Platelet Volume 5.5L, Neutrophils (%) (Auto) 63.5, Lymphocytes ( %) (Auto) 13.2L, Monocytes (%) (Auto) 13.7H, Eosinophils (%) (Auto) 8.0H, Basophils (%) (Auto) 1.6, Sodium Level 138, Potassium Level 3.8, Chloride Level 103, Carbon Dioxide Level 29, Anion Gap 6, Blood Urea Nitrogen 23H, Creatinine 4.9H, Estimat Glomerular Filtration Rate 8.9, Glucose Level 99, Calcium Level 7.4L Height (Feet): 4 Height (Inches): 11.00 Weight (Pounds): 149 Anand Cannon M.D. Jan 13, 2020 12:52
[2020-01-13] MEDS ORDERED: Vitamin D 50,000 units cap ORAL SCH (14:00)
[2020-01-13 16:00] VITALS: BP 144/68
--- NOTE | 2020-01-13 18:24 | General Progress Note ---
Assessment/Plan Problem List: (1) Renal insufficiency ICD Codes: N28.9 - Disorder of kidney and ureter, unspecified SNOMED: 231645984, 070928564 (2) Anemia ICD Codes: D64.9 - Anemia, unspecified SNOMED: 296897825 (3) Hypertension ICD Codes: I10 - Essential (primary) hypertension SNOMED: 38911153 (4) Hypoglycemia secondary to sulfonylurea ICD Codes: T38.3X1A - Poisoning by insulin and oral hypoglycemic [antidiabetic ] drugs, accidental (unintentional), initialencounter; E16.0 - Drug-induced hypoglycemia without coma SNOMED: 747397787, 219371691 Status: stable Assessment/Plan: 64yo female with pmh of HTN, DM2 who presents with hypoglycemia,and found to have NAREN. # NAREN vs NAREN on CKD - unclear baseline Cr. BUN 80s/Cr 7's. Pt likely with CKD 2/ 2 underlying diabetes and HTN # Hyperkalemia # Hyponatremia, hypervolemic - Renal consulted - Hold lisinopril - Kayexylate x1 today - Trend BMP/Mg/Phos - Check renal U/S: renal disease, no signs of post-obstruction - HD per renal -General surgery consult, for Eduardo placed 01/08 -Discussed with nephrology, will monitor urine output and continue dialysis, with possible discharge early next week -May need continued dialysis in which case PermCath will need to be placed. Will follow up with nephrology tomorrow # Symptomatic hypoglycemia - BG 30s - likely 2/2 increased dose of glipizide, resolved # Acute encephalopathy # Diabetes mellitus type 2 - Hold all hypoglycemic agents - SSI - s/p D10W gtt in ED - f/u Endo consult, appreciate recs: Continue off any hypoglycemic agents # Fever resolved - asymptomatic - blood cultures x 2, negative to date, follow-up - lactic acid within normal limits - f/u CXR negative - ordered COVID, negative # Anemia -Trend CBC -Check FOBT from stool -Iron panel -Transfuse for hemoglobin less than 7 -GI consult, appreciate recommendations -Status post transfusion with good hemoglobin response # HTN - Hold lisinopril 2/2 ANREN - Amlodipine 10mg daily started -Continue Coreg 12.5 mg p.o. twice daily-> increased from 12.5 to 25 mg BID 01/11 ; will defer to cards -Cardiology consult, appreciate recommendations -TTE normal ejection fraction DVT Prophylaxis: SCD, HSQ Code Status: Full Hospital Classification Declaration: Based on this initial evaluation, and depending on the patient's clinical course, I anticipate that this patient will require hospitalization for 2-3 days for hypoglycemia, NAREN, and close respiratory/hemodynamic monitoring. Time of note may not reflect time of patient encounter Disposition: Once the patient is stable to leave the hospital, I anticipate the patient will likely be discharged to the following environment: home with HH vs SNF I spent 38 minutes on this patient's case, and 35 minutes were dedicated to counseling and/or care coordination. Discussed with patient/family, nursing staff, renal regarding clinical status, treatment course, and disposition planning. I spent an additional 38 minutes on reviewing patient's chart from admission. This includes review of imaging, labs, notes, and interpretation of results. Subjective Date patient seen: Jan 13, 2020 Time patient seen: 13:30 Allergies: Coded Allergies: No Known Allergies (Unverified , 01/07/20) Subjective Patient states she is doing well Urine output 700 ML Vital signs stable Objective Last 24 Hour Vital Signs Date Time Temp Pulse Resp B/P (MAP) Pulse Ox O2 Delivery O2 Flow Rate FiO2 01/13/20 16:00 98.2 76 18 144/68 (93) 95 01/13/20 12:00 97.7 90 18 153/76 (101) 92 01/13/20 09:37 74 164/79 01/13/20 09:37 74 164/79 01/13/20 09:00 Room Air 01/13/20 08:00 98.1 74 18 164/79 (107) 98 01/13/20 04:00 98.0 72 18 153/70 (97) 97 01/13/20 00:00 98.6 70 20 142/67 (92) 96 01/12/20 21:00 Room Air 01/12/20 20:20 72 155/74 01/12/20 20:00 98.8 85 18 132/81 (98) 96 Intake and Output 01/12/20 01/13/20 19:00 07:00 Intake Total 1280 ml 300 ml Output Total 300 ml 400 ml Balance 980 ml -100 ml Intake Oral 1280 ml 240 ml IV Total 60 ml Output Urine Total 300 ml 400 ml # Bowel Movements 3 Laboratory Tests 01/13/20 05:45: White Blood Count 8.9, Red Blood Count 2.78L, Hemoglobin 8.3L, Hematocrit 25.9L , Mean Corpuscular Volume 93, Mean Corpuscular Hemoglobin 29.9, Mean Corpuscular Hemoglobin Concent 32.1, Red Cell Distribution Width 12.0, Platelet Count 270, Mean Platelet Volume 5.5L, Neutrophils (%) (Auto) 63.5, Lymphocytes ( %) (Auto) 13.2L, Monocytes (%) (Auto) 13.7H, Eosinophils (%) (Auto) 8.0H, Basophils (%) (Auto) 1.6, Sodium Level 138, Potassium Level 3.8, Chloride Level 103, Carbon Dioxide Level 29, Anion Gap 6, Blood Urea Nitrogen 23H, Creatinine 4.9H, Estimat Glomerular Filtration Rate 8.9, Glucose Level 99, Calcium Level 7.4L Height (Feet): 4 Height (Inches): 11.00 Weight (Pounds): 149 Objective GENERAL: No acute distress, appears comfortable, alert HEENT: NCAT, non-icteric eyes, pupils PERRLA Neck: No cervical lymphadenopathy, trachea midline CV: Tunneled catheter noted on right chest no hematoma, regular rate and rhythm , no murmurs rubs or gallops RESP: Clear to auscultation bilaterally, no wheezes/rhonchi/crackles ABD: soft, non-distended, no TTP EXT: Normal muscle tone, +5/5 muscle strength NEURO: No obvious deficits, alert and oriented x3 Ny Pittman DO Jan 13, 2020 18:24
[2020-01-13 20:00] VITALS: BP 159/64
--- NOTE | 2020-01-13 20:24 | Surgery Progress Note ---
Surgery Progress Note Subjective Symptoms: improved, tolerating diet, passing flatus Objective Last 24 Hour Vital Signs Date Time Temp Pulse Resp B/P (MAP) Pulse Ox O2 Delivery O2 Flow Rate FiO2 01/13/20 16:00 98.2 76 18 144/68 (93) 95 01/13/20 12:00 97.7 90 18 153/76 (101) 92 01/13/20 09:37 74 164/79 01/13/20 09:37 74 164/79 01/13/20 09:00 Room Air 01/13/20 08:00 98.1 74 18 164/79 (107) 98 01/13/20 04:00 98.0 72 18 153/70 (97) 97 01/13/20 00:00 98.6 70 20 142/67 (92) 96 01/12/20 21:00 Room Air I&O Intake and Output 01/12/20 01/13/20 19:00 07:00 Intake Total 1280 ml 300 ml Output Total 300 ml 400 ml Balance 980 ml -100 ml Intake Oral 1280 ml 240 ml IV Total 60 ml Output Urine Total 300 ml 400 ml # Bowel Movements 3 Cardiovascular: RSR Respiratory: clear Abdomen: soft, non-tender, present bowel sounds Extremities: no edema, no tenderness, no cyanosis Laboratory Tests Test 01/13/20 05:45 White Blood Count 8.9 K/UL (4.8-10.8) Red Blood Count 2.78 M/UL (4.20-5.40) L Hemoglobin 8.3 G/DL (12.0-16.0) L Hematocrit 25.9 % (37.0-47.0) L Mean Corpuscular Volume 93 FL (80-99) Mean Corpuscular Hemoglobin 29.9 PG (27.0-31.0) Mean Corpuscular Hemoglobin Concent 32.1 G/DL (32.0-36.0) Red Cell Distribution Width 12.0 % (11.6-14.8) Platelet Count 270 K/UL (150-450) Mean Platelet Volume 5.5 FL (6.5-10.1) L Neutrophils (%) (Auto) 63.5 % (45.0-75.0) Lymphocytes (%) (Auto) 13.2 % (20.0-45.0) L Monocytes (%) (Auto) 13.7 % (1.0-10.0) H Eosinophils (%) (Auto) 8.0 % (0.0-3.0) H Basophils (%) (Auto) 1.6 % (0.0-2.0) Sodium Level 138 MMOL/L (136-145) Potassium Level 3.8 MMOL/L (3.5-5.1) Chloride Level 103 MMOL/L (98-107) Carbon Dioxide Level 29 MMOL/L (21-32) Anion Gap 6 mmol/L (5-15) Blood Urea Nitrogen 23 mg/dL (7-18) H Creatinine 4.9 MG/DL (0.55-1.30) H Estimat Glomerular Filtration Rate 8.9 mL/min (>60) Glucose Level 99 MG/DL (74-106) Calcium Level 7.4 MG/DL (8.5-10.1) L Plan Problems: (1) Anemia Assessment & Plan: Transfuse PRN No active bleeding noted Trend H&H (2) Renal insufficiency Assessment & Plan: [age]-year-old female identified to have significant abnormal labs on admission elevated creatinine and BUN electrolytes. Discussed with nephrology patient in need of dialysis. Family has been contacted for consent given patient's current mental status but currently have not been decision as to care plan and goals of care Patient needs HD access for hemodialysis if family she was wishes Will await consent will be available for placement of catheter to initiate hemodialysis Thank you for let me participate patient's care family consented to line placement anemia transfuse with HD line placed right IJ temp HD (3) Hypertension (4) Hypoglycemia secondary to sulfonylurea Matheus Colvin Jan 13, 2020 20:24
[2020-01-13] MEDS: Dyna-Hex 2% Top Sol 2oz TOPIC SCH (20:43)
[2020-01-13] MEDS: Miralax 17gm pkt ORAL SCH (20:43)
--- NOTE | 2020-01-13 21:10 | Hematology/Onc Progress Note ---
Assessment/Plan Assessment/Plan Assessment and Recs # Anemia due to severe iron deficiency, ferritin of only 35 --> r/o malignancy, slow gi bleed, cea ordered --> as per gi recs, endoscopy as needed --> occult blood prn --> s/p 1 unit prbc 01/08 --> iv iron has been started x 5 days --> epogen consider to start given renal status after ferritin is >500 --> hgb 8.3 # NAREN On CKD-- ? ESRD due to DM and HTN- ua with 4+ proteinuria --> per renal, line placement --> hd prn basis --> epo prn # Hyperkalemia- improved # Hypoglycemia # hyperphosphetemia # HTN- accelerated --> cards prn # DM # HLD Appreciate consultation and dw RN Subjective HEENT: Denies: no symptoms, eye pain, blurred vision, tearing, double vision, ear pain, ear discharge, nose pain, nose congestion, throat pain, throat swelling, mouth pain, mouth swelling, other Cardiovascular: Denies: no symptoms, chest pain, edema, irregular heart rate, lightheadedness, palpitations, syncope, other Respiratory: Denies: no symptoms, cough, shortness of breath, SOB with excertion, SOB at rest, sputum, wheezing, other Neurologic/Psychiatric: Denies: no symptoms, anxiety, depressed, emotional problems, headache, numbness, paresthesia, pre-existing deficit, seizure, tingling, tremors, weakness, other Endocrine: Denies: no symptoms, excessive sweating, flushing, intolerance to cold, intolerance to heat, increased hunger, increased thirst, increased urine, unexplained weight gain, unexplained weight loss, other Allergies: Coded Allergies: No Known Allergies (Unverified , 01/07/20) Subjective 01/10 labs noted, no bleeding, on iv iron 01/12 to alexsandra mcgrath, labs noted, no bleeding, h/h stabilized Objective Objective Current Medications Medications (Trade) Dose Ordered Sig/[place] Route PRN Reason Start Time Stop Time Status Last Admin Dose Admin Acetaminophen (Tylenol) 650 mg Q6H PRN ORAL MILD/TEMP 01/09/20 16:34 02/08/20 16:33 Amlodipine Besylate (Norvasc) 10 mg DAILY ORAL 01/10/20 09:00 02/06/20 10:59 01/13/20 09:37 Aspirin (ASA) 81 mg DAILY ORAL 01/10/20 09:00 02/22/20 08:59 01/13/20 09:36 Carvedilol (Coreg) 25 mg EVERY 12 HOURS ORAL 01/12/20 21:00 02/09/20 16:44 01/13/20 20:43 Chlorhexidine Gluconate (Barbara-Hex 2%) 1 applic DAILY@2000 TOPIC 01/10/20 20:00 04/09/20 19:59 01/13/20 20:43 Clonidine HCl (Catapres Tab) 0.1 mg Q2H PRN ORAL For High Blood Pressure 01/10/20 06:15 04/09/20 06:14 01/12/20 13:22 Dextrose (Dextrose 50%) 25 ml Q30M PRN IV Hypoglycemia 01/09/20 16:35 04/08/20 16:34 Dextrose (Dextrose 50%) 50 ml Q30M PRN IV Hypoglycemia 01/09/20 16:35 04/08/20 16:34 Docusate Sodium (Colace) 100 mg TWICE A DAY ORAL 01/09/20 18:00 02/07/20 11:59 01/13/20 09:37 Doxazosin Mesylate (Cardura) 1 mg DAILY ORAL 01/12/20 09:00 02/11/20 08:59 01/13/20 09:37 Ergocalciferol (Drisdol) 50,000 intlu QWEEK ORAL 01/13/20 14:00 02/12/20 13:59 01/13/20 14:46 Hydralazine HCl (Apresoline) 25 mg Q4H PRN ORAL For High Blood Pressure 01/09/20 20:15 04/08/20 20:14 01/12/20 05:21 Insulin Aspart (NovoLOG) AC+HS SUBQ 01/10/20 11:30 04/06/20 12:59 Lactulose (Cephulac) 20 gm DAILY ORAL 01/10/20 09:00 02/08/20 10:29 01/13/20 09:36 Ondansetron HCl (Zofran) 4 mg Q4H PRN IVP Nausea & Vomiting 01/09/20 16:35 02/08/20 16:34 Polyethylene Glycol (Miralax) 17 gm BEDTIME ORAL 01/09/20 21:00 02/07/20 20:59 01/13/20 20:43 Sevelamer Carbonate (Renvela) 800 mg THREE TIMES A DAY ORAL 01/09/20 18:00 04/07/20 08:59 01/13/20 18:06 Last 24 Hour Vital Signs Date Time Temp Pulse Resp B/P (MAP) Pulse Ox O2 Delivery O2 Flow Rate FiO2 01/13/20 20:43 79 138/72 01/13/20 20:00 99.0 79 20 159/64 (95) 95 01/13/20 16:00 98.2 76 18 144/68 (93) 95 01/13/20 12:00 97.7 90 18 153/76 (101) 92 01/13/20 09:37 74 164/79 01/13/20 09:37 74 164/79 01/13/20 09:00 Room Air 01/13/20 08:00 98.1 74 18 164/79 (107) 98 01/13/20 04:00 98.0 72 18 153/70 (97) 97 01/13/20 00:00 98.6 70 20 142/67 (92) 96 01/12/20 21:00 Room Air 01/12/20 20:20 72 155/74 01/12/20 20:00 98.8 85 18 132/81 (98) 96 01/12/20 16:00 100.0 71 18 148/71 (96) 94 01/12/20 13:22 168/79 01/12/20 12:00 97.2 72 20 168/79 (108) 95 01/12/20 09:39 78 193/83 01/12/20 09:39 78 193/83 01/12/20 09:00 Room Air 01/12/20 08:00 99.7 78 18 193/83 (119) 97 01/12/20 06:34 73 164/73 (103) 01/12/20 05:21 180/82 01/12/20 04:00 98.5 78 18 180/82 (114) 95 78 01/12/20 00:00 98.0 77 18 178/81 (113) 95 77 01/11/20 22:58 74 174/68 (103) 6/26/20 22:55 174/68 Intake and Output 01/12/20 01/13/20 19:00 07:00 Intake Total 1280 ml 300 ml Output Total 300 ml 400 ml Balance 980 ml -100 ml Intake Oral 1280 ml 240 ml IV Total 60 ml Output Urine Total 300 ml 400 ml # Bowel Movements 3 Labs Test 01/11/20 04:45 01/12/20 05:05 01/13/20 05:45 White Blood Count 10.6 K/UL (4.8-10.8) 9.3 K/UL (4.8-10.8) 8.9 K/UL (4.8-10.8) Red Blood Count 2.76 M/UL (4.20-5.40) 2.86 M/UL (4.20-5.40) 2.78 M/UL (4.20-5.40) Hemoglobin 8.2 G/DL (12.0-16.0) 8.4 G/DL (12.0-16.0) 8.3 G/DL (12.0-16.0) Hematocrit 25.5 % (37.0-47.0) 26.6 % (37.0-47.0) 25.9 % (37.0-47.0) Mean Corpuscular Volume 92 FL (80-99) 93 FL (80-99) 93 FL (80-99) Mean Corpuscular Hemoglobin 29.6 PG (27.0-31.0) 29.5 PG (27.0-31.0) 29.9 PG (27.0-31.0) Mean Corpuscular Hemoglobin Concent 32.0 G/DL (32.0-36.0) 31.8 G/DL (32.0-36.0) 32.1 G/DL (32.0-36.0) Red Cell Distribution Width 12.1 % (11.6-14.8) 11.9 % (11.6-14.8) 12.0 % (11.6-14.8) Platelet Count 292 K/UL (150-450) 279 K/UL (150-450) 270 K/UL (150-450) Mean Platelet Volume 5.8 FL (6.5-10.1) 6.0 FL (6.5-10.1) 5.5 FL (6.5-10.1) Neutrophils (%) (Auto) 70.3 % (45.0-75.0) 64.7 % (45.0-75.0) 63.5 % (45.0-75.0) Lymphocytes (%) (Auto) 12.3 % (20.0-45.0) 14.8 % (20.0-45.0) 13.2 % (20.0-45.0) Monocytes (%) (Auto) 11.9 % (1.0-10.0) 14.4 % (1.0-10.0) 13.7 % (1.0-10.0) Eosinophils (%) (Auto) 4.7 % (0.0-3.0) 5.2 % (0.0-3.0) 8.0 % (0.0-3.0) Basophils (%) (Auto) 0.8 % (0.0-2.0) 0.8 % (0.0-2.0) 1.6 % (0.0-2.0) Sodium Level 137 MMOL/L (136-145) 138 MMOL/L (136-145) 138 MMOL/L (136-145) Potassium Level 3.1 MMOL/L (3.5-5.1) 3.8 MMOL/L (3.5-5.1) 3.8 MMOL/L (3.5-5.1) Chloride Level 99 MMOL/L (98-107) 103 MMOL/L (98-107) 103 MMOL/L (98-107) Carbon Dioxide Level 27 MMOL/L (21-32) 31 MMOL/L (21-32) 29 MMOL/L (21-32) Anion Gap 11 mmol/L (5-15) 4 mmol/L (5-15) 6 mmol/L (5-15) Blood Urea Nitrogen 41 mg/dL (7-18) 19 mg/dL (7-18) 23 mg/dL (7-18) Creatinine 5.8 MG/DL (0.55-1.30) 3.7 MG/DL (0.55-1.30) 4.9 MG/DL (0.55-1.30) Estimat Glomerular Filtration Rate 7.3 mL/min (>60) 12.3 mL/min (>60) 8.9 mL/min (>60) Glucose Level 101 MG/DL (74-106) 109 MG/DL (74-106) 99 MG/DL (74-106) Calcium Level 7.5 MG/DL (8.5-10.1) 7.7 MG/DL (8.5-10.1) 7.4 MG/DL (8.5-10.1) Phosphorus Level 5.1 MG/DL (2.5-4.9) Magnesium Level 1.9 MG/DL (1.8-2.4) Hepatitis A IgM Antibody Negative (Negative) Hepatitis B Surface Antigen Negative (Negative) Hepatitis B Core IgM Antibody Negative (Negative) Hepatitis C Antibody <0.1 s/co ratio Height (Feet): 4 Height (Inches): 11.00 Weight (Pounds): 149 Objective Physical Exam General: alert, cooperative, no distress Heent: normocephalic, without obvious abnormality Neck: supple, symmetrical, trachea midline Lungs: clear to auscultation bilaterally Heart: regular rate and rhythm, S1 Abdomen: soft, non-tender, non-distended Extremities: extremities normal Pulses: 2+ and symmetric Skin: skin color, texture, turgor normal Neurologic: grossly normal, no focal deficits Micheal Forman MD Jan 13, 2020 21:10
[2020-01-14] VITALS (14 sets, daily range): BP systolic 130–153; BP diastolic 67–83
[2020-01-14] MEDS: NovoLOG Insulin Flexpen SUBQ SCH ×4 (06:14→21:34)
--- NOTE | 2020-01-14 06:46 | General Progress Note ---
Assessment/Plan Problem List: (1) Renal insufficiency ICD Codes: N28.9 - Disorder of kidney and ureter, unspecified SNOMED: 901027982, 299610549 (2) Hypertension ICD Codes: I10 - Essential (primary) hypertension SNOMED: 76612001 (3) Hypoglycemia secondary to sulfonylurea ICD Codes: T38.3X1A - Poisoning by insulin and oral hypoglycemic [antidiabetic ] drugs, accidental (unintentional), initialencounter; E16.0 - Drug-induced hypoglycemia without coma SNOMED: 056424727, 538624080 (4) Anemia ICD Codes: D64.9 - Anemia, unspecified SNOMED: 779925012 Status: stable Assessment/Plan: glucose values are controlled without any oral agents continue glucose monitoring ac / hs hypoglycemia protocol in order no need for insulin after discharge Subjective Allergies: Coded Allergies: No Known Allergies (Unverified , 01/07/20) All Systems: reviewed and negative except above Subjective events noted glucose values stable without recurrence of hypoglycemia Item Value Date Time Bedside Blood Glucose 99 mg/dl 01/14/20 0614 Bedside Blood Glucose 104 mg/dl 01/13/20 2043 Bedside Blood Glucose 112 mg/dl 01/13/20 1630 Bedside Blood Glucose 93 mg/dl 01/13/20 1130 Bedside Blood Glucose 103 mg/dl 01/13/20 0617 Objective Last 24 Hour Vital Signs Date Time Temp Pulse Resp B/P (MAP) Pulse Ox O2 Delivery O2 Flow Rate FiO2 01/14/20 04:00 96.9 78 20 138/67 (90) 93 01/14/20 00:00 100.9 82 22 152/67 (95) 94 01/13/20 21:00 Room Air 01/13/20 20:43 79 138/72 01/13/20 20:00 99.0 79 20 159/64 (95) 95 01/13/20 16:00 98.2 76 18 144/68 (93) 95 01/13/20 12:00 97.7 90 18 153/76 (101) 92 01/13/20 09:37 74 164/79 01/13/20 09:37 74 164/79 01/13/20 09:00 Room Air 01/13/20 08:00 98.1 74 18 164/79 (107) 98 Intake and Output 01/13/20 01/14/20 19:00 07:00 Intake Total 616 ml 360 ml Output Total 1 ml 300 ml Balance 615 ml 60 ml Intake Oral 616 ml 360 ml Output Urine Total 300 ml Stool Total 1 ml # Bowel Movements 2 Laboratory Tests 01/14/20 06:15: White Blood Count [Pending], Red Blood Count [Pending], Hemoglobin [Pending], Hematocrit [Pending], Mean Corpuscular Volume [Pending], Mean Corpuscular Hemoglobin [Pending], Mean Corpuscular Hemoglobin Concent [Pending], Red Cell Distribution Width [Pending], Platelet Count [Pending], Mean Platelet Volume [ Pending], Neutrophils (%) (Auto) [Pending], Lymphocytes (%) (Auto) [Pending], Monocytes (%) (Auto) [Pending], Eosinophils (%) (Auto) [Pending], Basophils (%) (Auto) [Pending], Sodium Level [Pending], Potassium Level [Pending], Chloride Level [Pending], Carbon Dioxide Level [Pending], Blood Urea Nitrogen [Pending], Creatinine [Pending], Estimat Glomerular Filtration Rate [Pending], Glucose Level [Pending], Calcium Level [Pending] Height (Feet): 4 Height (Inches): 11.00 Weight (Pounds): 149 General Appearance: no apparent distress Neck: normal alignment Cardiovascular: normal rate Respiratory/Chest: lungs clear Abdomen: normal bowel sounds Pelvis: normal external exam Objective Current Medications Medications (Trade) Dose Ordered Sig/[place] Route PRN Reason Start Time Stop Time Status Last Admin Dose Admin Acetaminophen (Tylenol) 650 mg Q6H PRN ORAL MILD/TEMP 01/09/20 16:34 02/08/20 16:33 Amlodipine Besylate (Norvasc) 10 mg DAILY ORAL 01/10/20 09:00 02/06/20 10:59 01/13/20 09:37 Aspirin (ASA) 81 mg DAILY ORAL 01/10/20 09:00 02/22/20 08:59 01/13/20 09:36 Carvedilol (Coreg) 25 mg EVERY 12 HOURS ORAL 01/12/20 21:00 02/09/20 16:44 01/13/20 20:43 Chlorhexidine Gluconate (Barbara-Hex 2%) 1 applic DAILY@1999 TOPIC 01/10/20 20:00 04/09/20 19:59 01/13/20 20:43 Clonidine HCl (Catapres Tab) 0.1 mg Q2H PRN ORAL For High Blood Pressure 01/10/20 06:15 04/09/20 06:14 01/12/20 13:22 Dextrose (Dextrose 50%) 25 ml Q30M PRN IV Hypoglycemia 01/09/20 16:35 04/08/20 16:34 Dextrose (Dextrose 50%) 50 ml Q30M PRN IV Hypoglycemia 01/09/20 16:35 04/08/20 16:34 Docusate Sodium (Colace) 100 mg TWICE A DAY ORAL 01/09/20 18:00 02/07/20 11:59 01/13/20 09:37 Doxazosin Mesylate (Cardura) 1 mg DAILY ORAL 01/12/20 09:00 02/11/20 08:59 01/13/20 09:37 Ergocalciferol (Drisdol) 50,000 intlu QWEEK ORAL 01/13/20 14:00 02/12/20 13:59 01/13/20 14:46 Hydralazine HCl (Apresoline) 25 mg Q4H PRN ORAL For High Blood Pressure 01/09/20 20:15 04/08/20 20:14 01/12/20 05:21 Insulin Aspart (NovoLOG) AC+HS SUBQ 01/10/20 11:30 04/06/20 12:59 Lactulose (Cephulac) 20 gm DAILY ORAL 01/10/20 09:00 02/08/20 10:29 01/13/20 09:36 Ondansetron HCl (Zofran) 4 mg Q4H PRN IVP Nausea & Vomiting 01/09/20 16:35 02/08/20 16:34 Polyethylene Glycol (Miralax) 17 gm BEDTIME ORAL 01/09/20 21:00 02/07/20 20:59 01/13/20 20:43 Sevelamer Carbonate (Renvela) 800 mg THREE TIMES A DAY ORAL 01/09/20 18:00 04/07/20 08:59 01/13/20 18:06 Oracio Story MD Jan 14, 2020 06:46
[2020-01-14 06:58] LABS: BASOPHILS % (AUTO) 1.3 % (0.0-2.0); EOSINOPHILS % (AUTO) 5.6 % (0.0-3.0); HEMATOCRIT 26.3 % (37.0-47.0); HEMOGLOBIN 8.5 G/DL (12.0-16.0); MEAN CORPUSCULAR VOLUME 93 FL (80-99); MONOCYTES % (AUTO) 13.1 % (1.0-10.0); PLATELET COUNT 279 K/UL (150-450); RED BLOOD COUNT 2.82 M/UL (4.20-5.40); RED CELL DISTRIBUTION WIDTH 12.5 % (11.6-14.8); WHITE BLOOD COUNT 10.3 K/UL (4.8-10.8)
[2020-01-14 07:24] LABS: ANION GAP 7 mmol/L (5-15); BLOOD UREA NITROGEN 29 mg/dL (7-18); CALCIUM 7.1 MG/DL (8.5-10.1); CARBON DIOXIDE 27 MMOL/L (21-32); CHLORIDE 103 MMOL/L (98-107); POTASSIUM 3.5 MMOL/L (3.5-5.1); SODIUM 137 MMOL/L (136-145)
[2020-01-14] MEDS: Lactulose 20gm/30ml UDC ORAL SCH (09:00)
[2020-01-14] MEDS: Docusate 100mg cap ORAL SCH ×2 (09:00→17:24)
--- NOTE | 2020-01-14 09:28 | Nephrology Progress Note ---
Assessment/Plan Plan #NAREN vs NAREN On CKD-- ? ESRD due to DM and HTN- ua with 4+ proteinuria #Hyperkalemia- improved #Hypoglycemia #hyperphosphetemia #HTN- accelerated #DM #HLD #anemia of CKD? plan for HD today order permcath placement - monitor BMP and UOP over the weekend - placed mcgrath- monitor UOP - check renal US-> echogenic kidneys - prbc transfusion prn - IV iron - amlodipine 10mg daily - hydralazine PRN for now - sevelamer 800mgTID - avoid nephrotoxins - strict I&Os time spent 70 min, greater than 50% on care coordination and counseling. Subjective ROS Limited/Unobtainable: No Constitutional: Reports: malaise, weakness HEENT: Denies: no symptoms, eye pain, blurred vision, tearing, double vision, ear pain, ear discharge, nose pain, nose congestion, throat pain, throat swelling, mouth pain, mouth swelling, other Genitourinary: Denies: no symptoms, burning, discharge, frequency, flank pain, hematuria, incontinence, pain, urgency, other Neurologic/Psychiatric: Denies: no symptoms, anxiety, depressed, emotional problems, headache, numbness, paresthesia, pre-existing deficit, seizure, tingling, tremors, weakness, other Subjective plan for HD today order permcath placement Martina US:IMPRESSION: ECHOGENIC KIDNEYS REFLECTING MEDICAL RENAL DISEASE. NO OBSTRUCTIVE UROPATHY. GALLSTONE. Objective Objective Last 24 Hour Vital Signs Date Time Temp Pulse Resp B/P (MAP) Pulse Ox O2 Delivery O2 Flow Rate FiO2 01/14/20 08:00 97.0 80 21 130/70 (90) 95 01/14/20 04:00 96.9 78 20 138/67 (90) 93 01/14/20 00:00 100.9 82 22 152/67 (95) 94 01/13/20 21:00 Room Air 01/13/20 20:43 79 138/72 01/13/20 20:00 99.0 79 20 159/64 (95) 95 01/13/20 16:00 98.2 76 18 144/68 (93) 95 01/13/20 12:00 97.7 90 18 153/76 (101) 92 01/13/20 09:37 74 164/79 01/13/20 09:37 74 164/79 Intake and Output 01/13/20 01/14/20 19:00 07:00 Intake Total 616 ml 360 ml Output Total 1 ml 300 ml Balance 615 ml 60 ml Intake Oral 616 ml 360 ml Output Urine Total 300 ml Stool Total 1 ml # Bowel Movements 2 Laboratory Tests 01/14/20 06:15: White Blood Count 10.3, Red Blood Count 2.82L, Hemoglobin 8.5L, Hematocrit 26.3L , Mean Corpuscular Volume 93, Mean Corpuscular Hemoglobin 30.0, Mean Corpuscular Hemoglobin Concent 32.2, Red Cell Distribution Width 12.5, Platelet Count 279, Mean Platelet Volume 6.0L, Neutrophils (%) (Auto) 67.0, Lymphocytes ( %) (Auto) 13.0L, Monocytes (%) (Auto) 13.1H, Eosinophils (%) (Auto) 5.6H, Basophils (%) (Auto) 1.3, Sodium Level 137, Potassium Level 3.5, Chloride Level 103, Carbon Dioxide Level 27, Anion Gap 7, Blood Urea Nitrogen 29H, Creatinine 6.0H, Estimat Glomerular Filtration Rate 7.0, Glucose Level 100, Calcium Level 7.1L Height (Feet): 4 Height (Inches): 11.00 Weight (Pounds): 149 Anand Cannon M.D. Jan 14, 2020 09:28
[2020-01-14] MEDS: Doxazosin 1mg Tab ORAL SCH (09:37)
--- NOTE | 2020-01-14 09:37 | Cardiology Progress Note ---
Assessment/Plan Status: stable Assessment/Plan Assessment/Plan Problem List: (1) Renal insufficiency (2) Anemia (3) Hypertension (4) Hypoglycemia secondary to sulfonylurea (5) Hyperkalemia/hyponatremia 1-Hold lisinopril until creatinine <1.5 2- monitor electrolytes 3- IV fluids 4- Echocardiogram to evaluate for hypertensive heart disease LVEF normal, PAH 48 mmHg moderate MR - will need fluid removal to lower pressures and MR - no indiction for intervention at this time 5-Outpatient stress test given cardiac risk factors 6-Continue norvasc 10 mg qHS 7-Continue coreg 12.5 mg BID 8-DASH diet 9-Continue cardura 2 mg for better BP control goal <130/80 10- Clear for d/c from cardiac standpoint Subjective Cardiovascular: Reports: no symptoms Respiratory: Reports: no symptoms Gastrointestinal/Abdominal: Reports: no symptoms Genitourinary: Reports: no symptoms Subjective No acute events, no chest pain, blood pressures stable, no fevers, no complaints Objective Last 24 Hour Vital Signs Date Time Temp Pulse Resp B/P (MAP) Pulse Ox O2 Delivery O2 Flow Rate FiO2 01/14/20 08:00 97.0 80 21 130/70 (90) 95 01/14/20 04:00 96.9 78 20 138/67 (90) 93 01/14/20 00:00 100.9 82 22 152/67 (95) 94 01/13/20 21:00 Room Air 01/13/20 20:43 79 138/72 01/13/20 20:00 99.0 79 20 159/64 (95) 95 01/13/20 16:00 98.2 76 18 144/68 (93) 95 01/13/20 12:00 97.7 90 18 153/76 (101) 92 01/13/20 09:37 74 164/79 01/13/20 09:37 74 164/79 General Appearance: no apparent distress, alert EENT: PERRL/EOMI, normal ENT inspection, TMs normal, pharynx normal Neck: non-tender, normal alignment, supple, normal inspection Rhythm: NSR Cardiovascular: normal peripheral pulses, normal rate, regular rhythm Respiratory/Chest: chest wall non-tender, lungs clear, normal breath sounds Abdomen: normal bowel sounds, non tender, soft, no organomegaly Extremities: normal range of motion, non-tender, normal inspection, no calf tenderness, no swelling Neurologic: feed crusher II-XII grossly normal, no motor/sensory deficits Intake and Output 01/13/20 01/14/20 19:00 07:00 Intake Total 616 ml 360 ml Output Total 1 ml 300 ml Balance 615 ml 60 ml Intake Oral 616 ml 360 ml Output Urine Total 300 ml Stool Total 1 ml # Bowel Movements 2 Laboratory Tests Test 01/14/20 06:15 White Blood Count 10.3 K/UL (4.8-10.8) Red Blood Count 2.82 M/UL (4.20-5.40) L Hemoglobin 8.5 G/DL (12.0-16.0) L Hematocrit 26.3 % (37.0-47.0) L Mean Corpuscular Volume 93 FL (80-99) Mean Corpuscular Hemoglobin 30.0 PG (27.0-31.0) Mean Corpuscular Hemoglobin Concent 32.2 G/DL (32.0-36.0) Red Cell Distribution Width 12.5 % (11.6-14.8) Platelet Count 279 K/UL (150-450) Mean Platelet Volume 6.0 FL (6.5-10.1) L Neutrophils (%) (Auto) 67.0 % (45.0-75.0) Lymphocytes (%) (Auto) 13.0 % (20.0-45.0) L Monocytes (%) (Auto) 13.1 % (1.0-10.0) H Eosinophils (%) (Auto) 5.6 % (0.0-3.0) H Basophils (%) (Auto) 1.3 % (0.0-2.0) Sodium Level 137 MMOL/L (136-145) Potassium Level 3.5 MMOL/L (3.5-5.1) Chloride Level 103 MMOL/L (98-107) Carbon Dioxide Level 27 MMOL/L (21-32) Anion Gap 7 mmol/L (5-15) Blood Urea Nitrogen 29 mg/dL (7-18) H Creatinine 6.0 MG/DL (0.55-1.30) H Estimat Glomerular Filtration Rate 7.0 mL/min (>60) Glucose Level 100 MG/DL (74-106) Calcium Level 7.1 MG/DL (8.5-10.1) L Max Corbett MD Jan 14, 2020 09:37
[2020-01-14] MEDS: Aspirin Baby 81mg ORAL SCH (09:38)
[2020-01-14] MEDS: Carvedilol 12.5mg tab ORAL SCH (09:38)
--- NOTE | 2020-01-14 10:11 | General Progress Note ---
Assessment/Plan Problem List: (1) Hypertension ICD Codes: I10 - Essential (primary) hypertension SNOMED: 04595366 (2) Renal insufficiency ICD Codes: N28.9 - Disorder of kidney and ureter, unspecified SNOMED: 327101886, 183919355 (3) Anemia ICD Codes: D64.9 - Anemia, unspecified SNOMED: 656194905 (4) Hypoglycemia secondary to sulfonylurea ICD Codes: T38.3X1A - Poisoning by insulin and oral hypoglycemic [antidiabetic ] drugs, accidental (unintentional), initialencounter; E16.0 - Drug-induced hypoglycemia without coma SNOMED: 808543893, 521864089 Status: stable Assessment/Plan: iv iron colace and miralax lactulose will dc given loose stools fu stool ob>>> neg anemia most likely related to kidney DZ GI procedures if needed Subjective ROS Limited/Unobtainable: Yes Allergies: Coded Allergies: No Known Allergies (Unverified , 01/07/20) Objective Last 24 Hour Vital Signs Date Time Temp Pulse Resp B/P (MAP) Pulse Ox O2 Delivery O2 Flow Rate FiO2 01/14/20 09:38 80 130/70 01/14/20 09:37 80 130/70 01/14/20 08:00 97.0 80 21 130/70 (90) 95 01/14/20 04:00 96.9 78 20 138/67 (90) 93 01/14/20 00:00 100.9 82 22 152/67 (95) 94 01/13/20 21:00 Room Air 01/13/20 20:43 79 138/72 01/13/20 20:00 99.0 79 20 159/64 (95) 95 01/13/20 16:00 98.2 76 18 144/68 (93) 95 01/13/20 12:00 97.7 90 18 153/76 (101) 92 Intake and Output 01/13/20 01/14/20 19:00 07:00 Intake Total 616 ml 360 ml Output Total 1 ml 300 ml Balance 615 ml 60 ml Intake Oral 616 ml 360 ml Output Urine Total 300 ml Stool Total 1 ml # Bowel Movements 2 Laboratory Tests 01/14/20 06:15: White Blood Count 10.3, Red Blood Count 2.82L, Hemoglobin 8.5L, Hematocrit 26.3L , Mean Corpuscular Volume 93, Mean Corpuscular Hemoglobin 30.0, Mean Corpuscular Hemoglobin Concent 32.2, Red Cell Distribution Width 12.5, Platelet Count 279, Mean Platelet Volume 6.0L, Neutrophils (%) (Auto) 67.0, Lymphocytes ( %) (Auto) 13.0L, Monocytes (%) (Auto) 13.1H, Eosinophils (%) (Auto) 5.6H, Basophils (%) (Auto) 1.3, Sodium Level 137, Potassium Level 3.5, Chloride Level 103, Carbon Dioxide Level 27, Anion Gap 7, Blood Urea Nitrogen 29H, Creatinine 6.0H, Estimat Glomerular Filtration Rate 7.0, Glucose Level 100, Calcium Level 7.1L Height (Feet): 4 Height (Inches): 11.00 Weight (Pounds): 149 General Appearance: alert EENT: normal ENT inspection Neck: supple Cardiovascular: normal rate Respiratory/Chest: decreased breath sounds Abdomen: normal bowel sounds, non tender, soft Extremities: non-tender Alejandro Chamberlain MD Jan 14, 2020 10:11
[2020-01-14] MEDS ORDERED: Lidocaine 1% 10mg/ml/EPI 0.01mg/ml 30ml INJ ONE (12:45)
[2020-01-14] MEDS ORDERED: Heparin1,000 units/500ml Premix(Conc:2 units/ml) IV PRN (13:00)
--- NOTE | 2020-01-14 13:18 | Pre-Procedure Note/Attestation ---
Pre-Procedure Note/Attestation Complete Prior to Procedure Planned Procedure: not applicable Procedure Narrative: Permacath Indications for Procedure Pre-Operative Diagnosis: renal failure Attestation I attest that I discussed the nature of the procedure; its benefits; risks and complications; and alternatives (and the risks and benefits of such alternatives ), prior to the procedure, with the patient (or the patient's legal sales representative raw fibers). I attest that, if there was a reasonable possibility of needing a blood transfusion, the patient (or the patient's legal sales representative raw fibers) was given the [facility] standardized written summary, pursuant to the [place] Blood Safety Act ([place] Health and Safety Code # 1645, as amended). I attest that I re-evaluated the patient just prior to the surgery and that there has been no change in the patient's H&P, except as documented below: Werner Leigh MD Jan 14, 2020 13:18
--- NOTE | 2020-01-14 14:01 | Brief Operative Note ---
Immediate Post Operative Note Operative Note Pre-op Diagnosis: renal failure Procedure: permacath R IJV Post-op Diagnosis: same as pre-op Surgeon: Awilda Kidd Anesthesia: local Specimen: none Complications: none Fluids: none Implant(s) used?: No Werner Kidd MD Jan 14, 2020 14:01
--- NOTE | 2020-01-14 15:34 | General Progress Note ---
Assessment/Plan Problem List: (1) Renal insufficiency ICD Codes: N28.9 - Disorder of kidney and ureter, unspecified SNOMED: 037248550, 427528776 (2) Anemia ICD Codes: D64.9 - Anemia, unspecified SNOMED: 565846259 (3) Hypertension ICD Codes: I10 - Essential (primary) hypertension SNOMED: 67632215 (4) Hypoglycemia secondary to sulfonylurea ICD Codes: T38.3X1A - Poisoning by insulin and oral hypoglycemic [antidiabetic ] drugs, accidental (unintentional), initialencounter; E16.0 - Drug-induced hypoglycemia without coma SNOMED: 365379839, 265819645 Status: stable Assessment/Plan: 64yo female with pmh of HTN, DM2 who presents with hypoglycemia,and found to have NAREN. #ESRD (new diagnosis) # NAREN vs NAREN on CKD - unclear baseline Cr. BUN 80s/Cr 7's. Pt likely with CKD 2/ 2 underlying diabetes and HTN # Hyperkalemia # Hyponatremia, hypervolemic - Renal consulted - Hold lisinopril, okay to restart if okay with nephrology and cardiology - Kayexylate x1 today - Trend BMP/Mg/Phos - Check renal U/S: renal disease, no signs of post-obstruction - HD per renal -General surgery consult, for Eduardo placed 01/08 -Follow-up tunnel catheter placement 01/13 -Patient will need dialysis placement, is medically cleared for discharge once has dialysis placement -May need continued dialysis in which case PermCath will need to be placed. Will follow up with nephrology tomorrow # Symptomatic hypoglycemia - BG 30s - likely 2/2 increased dose of glipizide, resolved # Acute encephalopathy # Diabetes mellitus type 2 - Hold all hypoglycemic agents - SSI - s/p D10W gtt in ED - f/u Endo consult, appreciate recs: Continue off any hypoglycemic agents # Fever resolved - asymptomatic - blood cultures x 2, negative to date, follow-up - lactic acid within normal limits - f/u CXR negative - ordered COVID, negative # Anemia -Trend CBC -Check FOBT from stool -Iron panel -Transfuse for hemoglobin less than 7 -GI consult, appreciate recommendations -Status post transfusion with good hemoglobin response # HTN - Hold lisinopril 2/2 NAREN - Amlodipine 10mg daily started -Continue Coreg 12.5 mg p.o. twice daily-> increased from 12.5 to 25 mg BID 01/11 ; will defer to cards -Cardiology consult, appreciate recommendations -TTE normal ejection fraction DVT Prophylaxis: SCD, HSQ Code Status: Full Hospital Classification Declaration: Based on this initial evaluation, and depending on the patient's clinical course, I anticipate that this patient will require hospitalization for 2-3 days for hypoglycemia, NAREN, and close respiratory/hemodynamic monitoring. Time of note may not reflect time of patient encounter Disposition: Once the patient is stable to leave the hospital, I anticipate the patient will likely be discharged to the following environment: home with HH vs SNF I spent 38 minutes on this patient's case, and 35 minutes were dedicated to counseling and/or care coordination. Discussed with patient/family, nursing staff, renal regarding clinical status, treatment course, and disposition planning. I spent an additional 38 minutes on reviewing patient's chart from admission. This includes review of imaging, labs, notes, and interpretation of results. Subjective Date patient seen: Jan 14, 2020 Allergies: Coded Allergies: No Known Allergies (Unverified , 01/07/20) Subjective Patient received a tunneled catheter today, will be evaluated for hemodialysis placement Creatinine worse Blood pressure noted Objective Last 24 Hour Vital Signs Date Time Temp Pulse Resp B/P (MAP) Pulse Ox O2 Delivery O2 Flow Rate FiO2 01/14/20 13:47 74 21 153/83 (106) 94 01/14/20 13:42 74 22 145/78 (100) 93 01/14/20 13:39 97.2 74 20 146/76 (99) 95 01/14/20 13:32 74 20 2.0 01/14/20 13:29 74 20 2.0 01/14/20 13:28 74 20 146/76 (99) 95 01/14/20 13:18 97.2 01/14/20 13:16 97.2 84 20 153/70 (97) 96 01/14/20 13:10 74 20 01/14/20 12:00 97.2 84 20 133/75 (94) 96 01/14/20 09:38 80 130/70 01/14/20 09:37 80 130/70 01/14/20 09:00 Room Air 01/14/20 08:00 97.0 80 21 130/70 (90) 95 01/14/20 04:00 96.9 78 20 138/67 (90) 93 01/14/20 00:00 100.9 82 22 152/67 (95) 94 01/13/20 21:00 Room Air 01/13/20 20:43 79 138/72 01/13/20 20:00 99.0 79 20 159/64 (95) 95 01/13/20 16:00 98.2 76 18 144/68 (93) 95 Intake and Output 01/13/20 01/14/20 19:00 07:00 Intake Total 616 ml 360 ml Output Total 1 ml 300 ml Balance 615 ml 60 ml Intake Oral 616 ml 360 ml Output Urine Total 300 ml Stool Total 1 ml # Bowel Movements 2 Laboratory Tests 01/14/20 06:15: White Blood Count 10.3, Red Blood Count 2.82L, Hemoglobin 8.5L, Hematocrit 26.3L , Mean Corpuscular Volume 93, Mean Corpuscular Hemoglobin 30.0, Mean Corpuscular Hemoglobin Concent 32.2, Red Cell Distribution Width 12.5, Platelet Count 279, Mean Platelet Volume 6.0L, Neutrophils (%) (Auto) 67.0, Lymphocytes ( %) (Auto) 13.0L, Monocytes (%) (Auto) 13.1H, Eosinophils (%) (Auto) 5.6H, Basophils (%) (Auto) 1.3, Sodium Level 137, Potassium Level 3.5, Chloride Level 103, Carbon Dioxide Level 27, Anion Gap 7, Blood Urea Nitrogen 29H, Creatinine 6.0H, Estimat Glomerular Filtration Rate 7.0, Glucose Level 100, Calcium Level 7.1L Height (Feet): 4 Height (Inches): 11.00 Weight (Pounds): 149 Objective GENERAL: No acute distress, appears comfortable, alert HEENT: NCAT, non-icteric eyes, pupils PERRLA Neck: No cervical lymphadenopathy, trachea midline CV: Tunneled catheter noted on right chest no hematoma, regular rate and rhythm , no murmurs rubs or gallops RESP: Clear to auscultation bilaterally, no wheezes/rhonchi/crackles ABD: soft, non-distended, no TTP EXT: Normal muscle tone, +5/5 muscle strength NEURO: No obvious deficits, alert and oriented x3 Ny Pittman DO Jan 14, 2020 15:34
--- NOTE | 2020-01-14 16:15 | Surgery Progress Note ---
Surgery Progress Note Subjective Additional Comments worsening renal function exam stable feels well tolerating diet Objective Last 24 Hour Vital Signs Date Time Temp Pulse Resp B/P (MAP) Pulse Ox O2 Delivery O2 Flow Rate FiO2 01/14/20 13:47 74 21 153/83 (106) 94 01/14/20 13:42 74 22 145/78 (100) 93 01/14/20 13:39 97.2 74 20 146/76 (99) 95 01/14/20 13:32 74 20 2.0 01/14/20 13:29 74 20 2.0 01/14/20 13:28 74 20 146/76 (99) 95 01/14/20 13:18 97.2 01/14/20 13:16 97.2 84 20 153/70 (97) 96 01/14/20 13:10 74 20 01/14/20 12:00 97.2 84 20 133/75 (94) 96 01/14/20 09:38 80 130/70 01/14/20 09:37 80 130/70 01/14/20 09:00 Room Air 01/14/20 08:00 97.0 80 21 130/70 (90) 95 01/14/20 04:00 96.9 78 20 138/67 (90) 93 01/14/20 00:00 100.9 82 22 152/67 (95) 94 01/13/20 21:00 Room Air 01/13/20 20:43 79 138/72 01/13/20 20:00 99.0 79 20 159/64 (95) 95 I&O Intake and Output 01/13/20 01/14/20 19:00 07:00 Intake Total 616 ml 360 ml Output Total 1 ml 300 ml Balance 615 ml 60 ml Intake Oral 616 ml 360 ml Output Urine Total 300 ml Stool Total 1 ml # Bowel Movements 2 Dressing: other Wound: other Drains: other Cardiovascular: RSR Respiratory: decreased breath sounds Abdomen: soft, non-tender, present bowel sounds Extremities: no tenderness, no cyanosis Laboratory Tests Test 01/14/20 06:15 White Blood Count 10.3 K/UL (4.8-10.8) Red Blood Count 2.82 M/UL (4.20-5.40) L Hemoglobin 8.5 G/DL (12.0-16.0) L Hematocrit 26.3 % (37.0-47.0) L Mean Corpuscular Volume 93 FL (80-99) Mean Corpuscular Hemoglobin 30.0 PG (27.0-31.0) Mean Corpuscular Hemoglobin Concent 32.2 G/DL (32.0-36.0) Red Cell Distribution Width 12.5 % (11.6-14.8) Platelet Count 279 K/UL (150-450) Mean Platelet Volume 6.0 FL (6.5-10.1) L Neutrophils (%) (Auto) 67.0 % (45.0-75.0) Lymphocytes (%) (Auto) 13.0 % (20.0-45.0) L Monocytes (%) (Auto) 13.1 % (1.0-10.0) H Eosinophils (%) (Auto) 5.6 % (0.0-3.0) H Basophils (%) (Auto) 1.3 % (0.0-2.0) Sodium Level 137 MMOL/L (136-145) Potassium Level 3.5 MMOL/L (3.5-5.1) Chloride Level 103 MMOL/L (98-107) Carbon Dioxide Level 27 MMOL/L (21-32) Anion Gap 7 mmol/L (5-15) Blood Urea Nitrogen 29 mg/dL (7-18) H Creatinine 6.0 MG/DL (0.55-1.30) H Estimat Glomerular Filtration Rate 7.0 mL/min (>60) Glucose Level 100 MG/DL (74-106) Calcium Level 7.1 MG/DL (8.5-10.1) L Plan Problems: (1) Anemia Assessment & Plan: Transfuse PRN No active bleeding noted Trend H&H (2) Renal insufficiency Assessment & Plan: [age]-year-old female identified to have significant abnormal labs on admission elevated creatinine and BUN electrolytes. Discussed with nephrology patient in need of dialysis. Family has been contacted for consent given patient's current mental status but currently have not been decision as to care plan and goals of care Patient needs HD access for hemodialysis if family she was wishes Will await consent will be available for placement of catheter to initiate hemodialysis Thank you for let me participate patient's care family consented to line placement anemia transfuse with HD line placed right IJ temp HD perm a cath dialysis placement d/c planning (3) Hypertension (4) Hypoglycemia secondary to sulfonylurea Matheus Colvin Jan 14, 2020 16:15
--- NOTE | 2020-01-14 16:35 | Diagnostic Imaging Report ---
Indications: Needs long-term dialysis access Technique: Patient given IV Ancef. Total sterile technique, including sterile probe cover and sterile gel, sterile gloves, hand hygiene, hat, mask,, sterile gown, large sterile drape, and preparation with 2% chlorhexidine utilized. Local anesthesia with 1% lidocaine. Under real-time ultrasound guidance, puncture right internal jugular vein using 21-gauge micropuncture needle, passage 0.018 guidewire, exchange for 4 [place] [employer] micropuncture introducer. The guidewire was used to measure the appropriate catheter length, and was removed. The sheath was left in place. The subcutaneous tract was then anesthetized with 1% lidocaine. A chest dermatotomy was made . The tunneling device was used to pull a 14.5 [place] [employer] 23 cm palindrome catheter through the subcutaneous tunnel to the neck dermatotomy. A guidewire was passed through the neck introducer into the inferior vena cava, and serial dilators were passed over it, followed by the introduction of a 14.5 [place] [employer] AirGuard peel-away sheath. The catheter was then introduced into the sheath, the peel-away sheath was removed. Digital radiograph documents satisfactory catheter tip position in the high right atrium, no kinking at the insertion site. Both catheter ports aspirated and flushed. Catheter was fixed to the skin. Patient tolerated procedure well without immediate complication. Total fluoroscopy time 33.6 seconds. Total dose area product 0.32794 mGym2 Total number of images-one Comparison: None. Findings: Completion radiograph documents satisfactory position and course of the catheter, catheter tip at the high right atrium. Impression: Successful placement of right transjugular tunneled dialysis catheter, as described above
--- NOTE | 2020-01-14 16:42 | Hematology/Onc Progress Note ---
Assessment/Plan Assessment/Plan Assessment and Recs # Anemia due to severe iron deficiency, ferritin of only 35 --> r/o malignancy, slow gi bleed, cea ordered --> as per gi recs, endoscopy as needed --> occult blood prn --> s/p 1 unit prbc 01/08 --> completed iv iron x 5 days --> epogen consider to start given renal status after ferritin is >500 --> hgb 8.3-->8.5 # NAREN On CKD-- ? ESRD due to DM and HTN- ua with 4+ proteinuria --> per renal, line placement --> hd prn basis --> epo prn # Hyperkalemia- improved # Hypoglycemia # hyperphosphetemia # HTN- accelerated --> cards prn # DM # HLD Appreciate consultation and dw RN Subjective Allergies: Coded Allergies: No Known Allergies (Unverified , 01/07/20) Subjective 01/10 labs noted, no bleeding, on iv iron 01/12 to dc mcgrath, labs noted, no bleeding, h/h stabilized 01/13 s/p picc insertion, blood cx negative, labs reviewed Objective Objective Current Medications Medications (Trade) Dose Ordered Sig/[place] Route PRN Reason Start Time Stop Time Status Last Admin Dose Admin Acetaminophen (Tylenol) 650 mg Q6H PRN ORAL MILD/TEMP 01/09/20 16:34 02/08/20 16:33 Amlodipine Besylate (Norvasc) 10 mg DAILY ORAL 01/10/20 09:00 02/06/20 10:59 01/14/20 09:37 Aspirin (ASA) 81 mg DAILY ORAL 01/10/20 09:00 02/22/20 08:59 01/14/20 09:38 Carvedilol (Coreg) 25 mg EVERY 12 HOURS ORAL 01/14/20 21:00 02/09/20 20:59 Cefazolin Sodium 1 gm/Dextrose 55 ml @ 110 mls/hr ONCE ONCE IVPB 01/14/20 16:45 01/14/20 17:14 UNV Chlorhexidine Gluconate (Barbara-Hex 2%) 1 applic DAILY@1999 TOPIC 01/10/20 20:00 04/09/20 19:59 01/13/20 20:43 Clonidine HCl (Catapres Tab) 0.1 mg Q2H PRN ORAL For High Blood Pressure 01/10/20 06:15 04/09/20 06:14 01/12/20 13:22 Dextrose (Dextrose 50%) 25 ml Q30M PRN IV Hypoglycemia 01/09/20 16:35 04/08/20 16:34 Dextrose (Dextrose 50%) 50 ml Q30M PRN IV Hypoglycemia 01/09/20 16:35 04/08/20 16:34 Docusate Sodium (Colace) 100 mg TWICE A DAY ORAL 01/09/20 18:00 02/07/20 11:59 01/13/20 09:37 Doxazosin Mesylate (Cardura) 1 mg DAILY ORAL 01/12/20 09:00 02/11/20 08:59 01/14/20 09:37 Ergocalciferol (Drisdol) 50,000 intlu QWEEK ORAL 01/13/20 14:00 02/12/20 13:59 01/13/20 14:46 Heparin Sodium/ Sodium Chloride (Heparin 1000 units/500ml Premix) 1,000 unit ONCE PRN IV radiology procedure 01/14/20 13:00 01/16/20 12:59 Hydralazine HCl (Apresoline) 25 mg Q4H PRN ORAL For High Blood Pressure 01/09/20 20:15 04/08/20 20:14 01/12/20 05:21 Insulin Aspart (NovoLOG) AC+HS SUBQ 01/10/20 11:30 04/06/20 12:59 Ondansetron HCl (Zofran) 4 mg Q4H PRN IVP Nausea & Vomiting 01/09/20 16:35 02/08/20 16:34 Polyethylene Glycol (Miralax) 17 gm BEDTIME ORAL 01/09/20 21:00 02/07/20 20:59 01/13/20 20:43 Sevelamer Carbonate (Renvela) 800 mg THREE TIMES A DAY ORAL 01/09/20 18:00 04/07/20 08:59 01/14/20 12:18 Last 24 Hour Vital Signs Date Time Temp Pulse Resp B/P (MAP) Pulse Ox O2 Delivery O2 Flow Rate FiO2 01/14/20 13:47 74 21 153/83 (106) 94 01/14/20 13:42 74 22 145/78 (100) 93 01/14/20 13:39 97.2 74 20 146/76 (99) 95 01/14/20 13:32 74 20 2.0 01/14/20 13:29 74 20 2.0 01/14/20 13:28 74 20 146/76 (99) 95 01/14/20 13:18 97.2 01/14/20 13:16 97.2 84 20 153/70 (97) 96 01/14/20 13:10 74 20 01/14/20 12:00 97.2 84 20 133/75 (94) 96 01/14/20 09:38 80 130/70 01/14/20 09:37 80 130/70 01/14/20 09:00 Room Air 01/14/20 08:00 97.0 80 21 130/70 (90) 95 01/14/20 04:00 96.9 78 20 138/67 (90) 93 01/14/20 00:00 100.9 82 22 152/67 (95) 94 01/13/20 21:00 Room Air 01/13/20 20:43 79 138/72 01/13/20 20:00 99.0 79 20 159/64 (95) 95 01/13/20 16:00 98.2 76 18 144/68 (93) 95 01/13/20 12:00 97.7 90 18 153/76 (101) 92 01/13/20 09:37 74 164/79 01/13/20 09:37 74 164/79 01/13/20 09:00 Room Air 01/13/20 08:00 98.1 74 18 164/79 (107) 98 01/13/20 04:00 98.0 72 18 153/70 (97) 97 01/13/20 00:00 98.6 70 20 142/67 (92) 96 01/12/20 21:00 Room Air 01/12/20 20:20 72 155/74 01/12/20 20:00 98.8 85 18 132/81 (98) 96 Intake and Output 01/13/20 01/14/20 19:00 07:00 Intake Total 616 ml 360 ml Output Total 1 ml 300 ml Balance 615 ml 60 ml Intake Oral 616 ml 360 ml Output Urine Total 300 ml Stool Total 1 ml # Bowel Movements 2 Labs Test 01/12/20 05:05 01/13/20 05:45 01/14/20 06:15 White Blood Count 9.3 K/UL (4.8-10.8) 8.9 K/UL (4.8-10.8) 10.3 K/UL (4.8-10.8) Red Blood Count 2.86 M/UL (4.20-5.40) 2.78 M/UL (4.20-5.40) 2.82 M/UL (4.20-5.40) Hemoglobin 8.4 G/DL (12.0-16.0) 8.3 G/DL (12.0-16.0) 8.5 G/DL (12.0-16.0) Hematocrit 26.6 % (37.0-47.0) 25.9 % (37.0-47.0) 26.3 % (37.0-47.0) Mean Corpuscular Volume 93 FL (80-99) 93 FL (80-99) 93 FL (80-99) Mean Corpuscular Hemoglobin 29.5 PG (27.0-31.0) 29.9 PG (27.0-31.0) 30.0 PG (27.0-31.0) Mean Corpuscular Hemoglobin Concent 31.8 G/DL (32.0-36.0) 32.1 G/DL (32.0-36.0) 32.2 G/DL (32.0-36.0) Red Cell Distribution Width 11.9 % (11.6-14.8) 12.0 % (11.6-14.8) 12.5 % (11.6-14.8) Platelet Count 279 K/UL (150-450) 270 K/UL (150-450) 279 K/UL (150-450) Mean Platelet Volume 6.0 FL (6.5-10.1) 5.5 FL (6.5-10.1) 6.0 FL (6.5-10.1) Neutrophils (%) (Auto) 64.7 % (45.0-75.0) 63.5 % (45.0-75.0) 67.0 % (45.0-75.0) Lymphocytes (%) (Auto) 14.8 % (20.0-45.0) 13.2 % (20.0-45.0) 13.0 % (20.0-45.0) Monocytes (%) (Auto) 14.4 % (1.0-10.0) 13.7 % (1.0-10.0) 13.1 % (1.0-10.0) Eosinophils (%) (Auto) 5.2 % (0.0-3.0) 8.0 % (0.0-3.0) 5.6 % (0.0-3.0) Basophils (%) (Auto) 0.8 % (0.0-2.0) 1.6 % (0.0-2.0) 1.3 % (0.0-2.0) Sodium Level 138 MMOL/L (136-145) 138 MMOL/L (136-145) 137 MMOL/L (136-145) Potassium Level 3.8 MMOL/L (3.5-5.1) 3.8 MMOL/L (3.5-5.1) 3.5 MMOL/L (3.5-5.1) Chloride Level 103 MMOL/L (98-107) 103 MMOL/L (98-107) 103 MMOL/L (98-107) Carbon Dioxide Level 31 MMOL/L (21-32) 29 MMOL/L (21-32) 27 MMOL/L (21-32) Anion Gap 4 mmol/L (5-15) 6 mmol/L (5-15) 7 mmol/L (5-15) Blood Urea Nitrogen 19 mg/dL (7-18) 23 mg/dL (7-18) 29 mg/dL (7-18) Creatinine 3.7 MG/DL (0.55-1.30) 4.9 MG/DL (0.55-1.30) 6.0 MG/DL (0.55-1.30) Estimat Glomerular Filtration Rate 12.3 mL/min (>60) 8.9 mL/min (>60) 7.0 mL/min (>60) Glucose Level 109 MG/DL (74-106) 99 MG/DL (74-106) 100 MG/DL (74-106) Calcium Level 7.7 MG/DL (8.5-10.1) 7.4 MG/DL (8.5-10.1) 7.1 MG/DL (8.5-10.1) Height (Feet): 4 Height (Inches): 11.00 Weight (Pounds): 149 Objective Physical Exam General: alert, cooperative, no distress Heent: normocephalic, without obvious abnormality Neck: supple, symmetrical, trachea midline Lungs: clear to auscultation bilaterally Heart: regular rate and rhythm, S1 Abdomen: soft, non-tender, non-distended Extremities: extremities normal, picc++ Pulses: 2+ and symmetric Skin: skin color, texture, turgor normal Neurologic: grossly normal, no focal deficits Micheal Forman MD Jan 14, 2020 16:42
[2020-01-14] MEDS ORDERED: ceFAZolin sod 1 GM in D5W 55 ML IVPB ONE ×2 (16:45→18:00)
[2020-01-14] MEDS: Dyna-Hex 2% Top Sol 2oz TOPIC SCH (19:29)
[2020-01-14] MEDS: Miralax 17gm pkt ORAL SCH (21:33)
[2020-01-14] MEDS: Carvedilol 25mg Tab ORAL SCH (22:06)
[2020-01-15] VITALS: BP 145/66
[2020-01-15 04:00] VITALS: BP 141/55
[2020-01-15 05:28] LABS: HEMATOCRIT 24.4 % (37.0-47.0); HEMOGLOBIN 7.6 G/DL (12.0-16.0); MEAN CORPUSCULAR VOLUME 93 FL (80-99); PLATELET COUNT 275 K/UL (150-450); RED BLOOD COUNT 2.61 M/UL (4.20-5.40); RED CELL DISTRIBUTION WIDTH 12.7 % (11.6-14.8); WHITE BLOOD COUNT 12.8 K/UL (4.8-10.8)
[2020-01-15] MEDS: NovoLOG Insulin Flexpen SUBQ SCH ×2 (06:30→12:40)
[2020-01-15 06:33] LABS: BLOOD UREA NITROGEN 12 mg/dL (7-18); CALCIUM 7.4 MG/DL (8.5-10.1); CARBON DIOXIDE 30 MMOL/L (21-32); CREATININE 3.8 MG/DL (0.55-1.30)
--- NOTE | 2020-01-15 06:59 | General Progress Note ---
Assessment/Plan Problem List: (1) Renal insufficiency ICD Codes: N28.9 - Disorder of kidney and ureter, unspecified SNOMED: 403354261, 428435103 (2) Hypertension ICD Codes: I10 - Essential (primary) hypertension SNOMED: 53663881 (3) Hypoglycemia secondary to sulfonylurea ICD Codes: T38.3X1A - Poisoning by insulin and oral hypoglycemic [antidiabetic ] drugs, accidental (unintentional), initialencounter; E16.0 - Drug-induced hypoglycemia without coma SNOMED: 112291826, 049914672 (4) Anemia ICD Codes: D64.9 - Anemia, unspecified SNOMED: 619905020 Status: stable Assessment/Plan: glucose values are controlled without any oral agents continue glucose monitoring ac / hs hypoglycemia protocol in order no need for insulin after discharge Subjective Allergies: Coded Allergies: No Known Allergies (Unverified , 01/07/20) All Systems: reviewed and negative except above Subjective events noted glucose values stable without recurrence of hypoglycemia Item Value Date Time Bedside Blood Glucose 94 mg/dl 01/15/20 0630 Bedside Blood Glucose 94 mg/dl 01/14/20 2134 Bedside Blood Glucose 148 mg/dl H 01/14/20 1724 Bedside Blood Glucose 116 mg/dl 01/14/20 1130 Bedside Blood Glucose 99 mg/dl 01/14/20 0614 Objective Last 24 Hour Vital Signs Date Time Temp Pulse Resp B/P (MAP) Pulse Ox O2 Delivery O2 Flow Rate FiO2 01/15/20 04:00 98.6 79 20 141/55 (83) 93 01/15/20 00:00 97.9 78 20 145/66 (92) 90 01/14/20 22:06 72 149/83 01/14/20 21:00 Room Air 01/14/20 20:00 97.9 72 20 135/72 (93) 98 01/14/20 16:00 97.5 88 19 130/71 (90) 97 01/14/20 13:47 74 21 153/83 (106) 94 01/14/20 13:42 74 22 145/78 (100) 93 01/14/20 13:39 97.2 74 20 146/76 (99) 95 01/14/20 13:32 74 20 2.0 01/14/20 13:29 74 20 2.0 6/29/20 13:28 74 20 146/76 (99) 95 01/14/20 13:18 97.2 01/14/20 13:16 97.2 84 20 153/70 (97) 96 01/14/20 13:10 74 20 01/14/20 12:00 97.2 84 20 133/75 (94) 96 01/14/20 09:38 80 130/70 01/14/20 09:37 80 130/70 01/14/20 09:00 Room Air 01/14/20 08:00 97.0 80 21 130/70 (90) 95 Intake and Output 01/14/20 01/15/20 19:00 07:00 Intake Total 875 ml 600 ml Output Total 2400 ml Balance 875 ml -1800 ml Intake Oral 820 ml 600 ml IV Total 55 ml Output Urine Total 400 ml Hemodialysis UF 2000 ml # Voids 1 # Bowel Movements 2 Laboratory Tests 01/15/20 05:00: White Blood Count 12.8H, Red Blood Count 2.61L, Hemoglobin 7.6L, Hematocrit 24.4L, Mean Corpuscular Volume 93, Mean Corpuscular Hemoglobin 29.3, Mean Corpuscular Hemoglobin Concent 31.3L, Red Cell Distribution Width 12.7, Platelet Count 275, Mean Platelet Volume 5.8L, Neutrophils (%) (Auto) , Lymphocytes (%) (Auto) , Monocytes (%) (Auto) , Eosinophils (%) (Auto) , Basophils (%) (Auto) , Sodium Level [Pending], Potassium Level [Pending], Chloride Level [Pending], Carbon Dioxide Level 30, Blood Urea Nitrogen 12, Creatinine 3.8H, Estimat Glomerular Filtration Rate 11.9, Glucose Level 105, Calcium Level 7.4L Height (Feet): 4 Height (Inches): 11.00 Weight (Pounds): 149 General Appearance: no apparent distress Neck: normal alignment Cardiovascular: normal rate Respiratory/Chest: lungs clear Abdomen: normal bowel sounds Pelvis: normal external exam Objective Current Medications Medications (Trade) Dose Ordered Sig/[place] Route PRN Reason Start Time Stop Time Status Last Admin Dose Admin Acetaminophen (Tylenol) 650 mg Q6H PRN ORAL MILD/TEMP 01/09/20 16:34 02/08/20 16:33 Amlodipine Besylate (Norvasc) 10 mg DAILY ORAL 01/10/20 09:00 02/06/20 10:59 01/14/20 09:37 Aspirin (ASA) 81 mg DAILY ORAL 01/10/20 09:00 02/22/20 08:59 01/14/20 09:38 Carvedilol (Coreg) 25 mg EVERY 12 HOURS ORAL 01/14/20 21:00 02/09/20 20:59 01/14/20 22:06 Chlorhexidine Gluconate (Barbara-Hex 2%) 1 applic DAILY@2000 TOPIC 01/10/20 20:00 04/09/20 19:59 01/14/20 19:29 Clonidine HCl (Catapres Tab) 0.1 mg Q2H PRN ORAL For High Blood Pressure 01/10/20 06:15 04/09/20 06:14 01/12/20 13:22 Dextrose (Dextrose 50%) 25 ml Q30M PRN IV Hypoglycemia 01/09/20 16:35 04/08/20 16:34 Dextrose (Dextrose 50%) 50 ml Q30M PRN IV Hypoglycemia 01/09/20 16:35 04/08/20 16:34 Docusate Sodium (Colace) 100 mg TWICE A DAY ORAL 01/09/20 18:00 02/07/20 11:59 01/13/20 09:37 Doxazosin Mesylate (Cardura) 1 mg DAILY ORAL 01/12/20 09:00 02/11/20 08:59 01/14/20 09:37 Ergocalciferol (Drisdol) 50,000 intlu QWEEK ORAL 01/13/20 14:00 02/12/20 13:59 01/13/20 14:46 Heparin Sodium/ Sodium Chloride (Heparin 1000 units/500ml Premix) 1,000 unit ONCE PRN IV radiology procedure 01/14/20 13:00 01/16/20 12:59 Hydralazine HCl (Apresoline) 25 mg Q4H PRN ORAL For High Blood Pressure 01/09/20 20:15 04/08/20 20:14 01/12/20 05:21 Insulin Aspart (NovoLOG) AC+HS SUBQ 01/10/20 11:30 04/06/20 12:59 01/14/20 17:24 Ondansetron HCl (Zofran) 4 mg Q4H PRN IVP Nausea & Vomiting 01/09/20 16:35 02/08/20 16:34 01/14/20 19:29 Polyethylene Glycol (Miralax) 17 gm BEDTIME ORAL 01/09/20 21:00 02/07/20 20:59 01/13/20 20:43 Sevelamer Carbonate (Renvela) 800 mg THREE TIMES A DAY ORAL 01/09/20 18:00 04/07/20 08:59 01/14/20 17:24 Oracio Story MD Jan 15, 2020 06:59
[2020-01-15 07:03] LABS: CHLORIDE 105 MMOL/L (98-107); POTASSIUM 4.1 MMOL/L (3.5-5.1); SODIUM 138 MMOL/L (136-145)
[2020-01-15 08:00] VITALS: BP 138/60
[2020-01-15] MEDS: Aspirin Baby 81mg ORAL SCH (08:30)
[2020-01-15] MEDS: Doxazosin 1mg Tab ORAL SCH (08:31)
[2020-01-15] MEDS: Carvedilol 25mg Tab ORAL SCH (08:32)
[2020-01-15] MEDS: Docusate 100mg cap ORAL SCH (08:34)
[2020-01-15] MEDS ORDERED: NORVASC10 MG ORAL (08:45)
[2020-01-15] MEDS ORDERED: CARDURA1 MG ORAL (08:45)
[2020-01-15] MEDS ORDERED: COREG25 MG ORAL (08:45)
[2020-01-15] MEDS ORDERED: RENVELA800 MG ORAL (08:45)
--- NOTE | 2020-01-15 08:48 | Discharge Summary ---
Discharge Summary Hospital Course Date of Admission Jan 07, 2020 at 07:05 Date of Discharge Admitting Diagnosis recurrent hypoglycemia BRITTON Lopez is a 64 year old female who was admitted on Jan 07, 2020 at 07: 05 for Recurrent Hypoglycemia PE: General: NAD, A&O x 3, sitting up in bed comfortably HEENT: NCAT, EOMi, MMM CV: RRR, no murmurs, rubs, or gallops Pulm: CTAB, No wheezes, rhonchi, or rales, no accessory muscle usage or conversational dyspnea GI: Soft, nontender, nondistended, bowel sounds present Ext: No lower extremity edema bilaterally Skin: no rashes lesions or ulcers, right tunnel cath in IJ noted, C/D/I Msk: Joints symmetrical in upper extremity and lower extremity bilaterally, no joint swelling. Neuro: CN 2-12 grossly intact bilaterally, no focal signs. Hospital Course 64yo female with pmh of HTN, DM2 who presents with hypoglycemia,and found to have NAREN. Renal was consulted, patient had renal ultrasound which showed renal disease with no signs of postobstructive disease. Patient was started on HD. General surgery consulted and Eduardo cath was placed on 01/08, patient then underwent tunnel catheter placement on 01/13. CM was consulted for HD placement. Throughout hospital course patient noted with hypoglycemia, endocrine was consulted who stated to hold all hypoglycemic agents and for patient to be DC'd without any hypoglycemic medications at this time. Patient was noted to have a fever that was self-limiting, resolved, patient was asymptomatic, blood cultures were negative x2, CXR negative and COVID was tested which was also negative. Cardio was consulted, TTE performed to evaluate for hypertensive heart disease, LVEF normal, PAH 48. Patient was to continue Norvasc 10 mg qHS, Cardura 2 mg, Coreg 12.5 mg BID. Patient noted with anemia, GI consulted, FOBT was negative, no further work-up at this time. Patient to be DC'd in stable condition with instructions to follow-up with PCP, HD. Case was discussed with patient's podiatric medicine professor who stated will follow up with blood work as outpatient. D/c Diagnosis: #ESRD (new diagnosis) # NAREN vs NAREN on CKD - unclear baseline Cr. BUN 80s/Cr 7's. Pt likely with CKD 2/ 2 underlying diabetes and HTN # Hyperkalemia # Hyponatremia, hypervolemic # Symptomatic hypoglycemia - BG 30s - likely 2/2 increased dose of glipizide, resolved # Acute encephalopathy # Diabetes mellitus type 2 # Fever resolved # Anemia # HTN D/c planning 36 mins. Additional 31 minutes spent on chart review, previous H&P, progress notes, wireless consultant notes, labs, imaging, procedures. Time of note doesn't reflect time of encounter. Discharge Medications New Medications: Amlodipine Besylate (Norvasc) 10 Mg Tablet 10 MG ORAL DAILY for 90 Days, #90 TAB 3 Refills Carvedilol (Coreg) 25 Mg Tablet 25 MG ORAL EVERY 12 HOURS for 90 Days, #180 TAB 3 Refills Doxazosin Mesylate* (Cardura*) 1 Mg Tablet 1 MG ORAL DAILY for 90 Days, #90 TAB 3 Refills Sevelamer Carbonate (Renvela) 800 Mg Tablet 800 MG ORAL THREE TIMES A DAY for 30 Days, #90 TAB 9 Refills Continued Medications: Aspirin* (Aspirin*) 81 Mg Tab.chew 81 MG ORAL DAILY for prophylactic, TAB Discontinued Medications: Glipizide (Glipizide Er) 2.5 Mg Tab.er.24 2.5 MG PO for DM, TAB Lisinopril (Lisinopril*) 20 Mg Tablet 20 MG ORAL DAILY for HTN, TAB Discharge Condition Upon Discharge: stable Discharge Vital Signs Last Vital Signs Date Time Temp Pulse Resp B/P (MAP) Pulse Ox O2 Delivery O2 Flow Rate FiO2 01/15/20 08:32 83 138/60 01/15/20 08:00 98.5 19 94 01/14/20 21:00 Room Air 01/14/20 13:32 2.0 01/08/20 01:51 28 Discharge Disposition Patient was discharged to Home Miguel Crowley M.D. Jan 15, 2020 08:48
--- NOTE | 2020-01-15 08:50 | General Progress Note ---
Assessment/Plan Problem List: (1) Hypertension ICD Codes: I10 - Essential (primary) hypertension SNOMED: 17185237 (2) Renal insufficiency ICD Codes: N28.9 - Disorder of kidney and ureter, unspecified SNOMED: 672891750, 371263885 (3) Anemia ICD Codes: D64.9 - Anemia, unspecified SNOMED: 306362076 (4) Hypoglycemia secondary to sulfonylurea ICD Codes: T38.3X1A - Poisoning by insulin and oral hypoglycemic [antidiabetic ] drugs, accidental (unintentional), initialencounter; E16.0 - Drug-induced hypoglycemia without coma SNOMED: 154931016, 046998744 Status: stable Assessment/Plan: iv iron colace and miralax fu stool ob>>> neg anemia most likely related to kidney DZ GI procedures if needed Subjective ROS Limited/Unobtainable: Yes Allergies: Coded Allergies: No Known Allergies (Unverified , 01/07/20) Subjective one episode of vomiting Objective Last 24 Hour Vital Signs Date Time Temp Pulse Resp B/P (MAP) Pulse Ox O2 Delivery O2 Flow Rate FiO2 01/15/20 08:32 83 138/60 01/15/20 08:32 83 138/60 01/15/20 08:00 98.5 83 19 138/60 (86) 94 01/15/20 04:00 98.6 79 20 141/55 (83) 93 01/15/20 00:00 97.9 78 20 145/66 (92) 90 01/14/20 22:06 72 149/83 01/14/20 21:00 Room Air 01/14/20 20:00 97.9 72 20 135/72 (93) 98 01/14/20 16:00 97.5 88 19 130/71 (90) 97 01/14/20 13:47 74 21 153/83 (106) 94 01/14/20 13:42 74 22 145/78 (100) 93 01/14/20 13:39 97.2 74 20 146/76 (99) 95 01/14/20 13:32 74 20 2.0 01/14/20 13:29 74 20 2.0 01/14/20 13:28 74 20 146/76 (99) 95 01/14/20 13:18 97.2 01/14/20 13:16 97.2 84 20 153/70 (97) 96 01/14/20 13:10 74 20 01/14/20 12:00 97.2 84 20 133/75 (94) 96 01/14/20 09:38 80 130/70 01/14/20 09:37 80 130/70 01/14/20 09:00 Room Air Intake and Output 01/14/20 01/15/20 19:00 07:00 Intake Total 875 ml 600 ml Output Total 2400 ml Balance 875 ml -1800 ml Intake Oral 820 ml 600 ml IV Total 55 ml Output Urine Total 400 ml Hemodialysis UF 2000 ml # Voids 1 # Bowel Movements 2 Laboratory Tests 01/15/20 05:00: White Blood Count 12.8H, Red Blood Count 2.61L, Hemoglobin 7.6L, Hematocrit 24.4L, Mean Corpuscular Volume 93, Mean Corpuscular Hemoglobin 29.3, Mean Corpuscular Hemoglobin Concent 31.3L, Red Cell Distribution Width 12.7, Platelet Count 275, Mean Platelet Volume 5.8L, Neutrophils (%) (Auto) , Lymphocytes (%) (Auto) , Monocytes (%) (Auto) , Eosinophils (%) (Auto) , Basophils (%) (Auto) , Sodium Level 138, Potassium Level 4.1, Chloride Level 105 , Carbon Dioxide Level 30, Blood Urea Nitrogen 12, Creatinine 3.8H, Estimat Glomerular Filtration Rate 11.9, Glucose Level 105, Calcium Level 7.4L Height (Feet): 4 Height (Inches): 11.00 Weight (Pounds): 149 General Appearance: no apparent distress EENT: normal ENT inspection Neck: normal alignment Cardiovascular: normal rate Respiratory/Chest: decreased breath sounds Abdomen: normal bowel sounds, non tender, soft Extremities: non-tender Alejandro Chamberlain MD Jan 15, 2020 08:50
--- NOTE | 2020-01-15 11:03 | Hematology/Onc Progress Note ---
Assessment/Plan Assessment/Plan Assessment and Recs # Anemia due to severe iron deficiency, ferritin of only 35 --> r/o malignancy, slow gi bleed, cea ordered --> as per gi recs, endoscopy as needed --> occult blood prn --> s/p 1 unit prbc 01/08 --> completed iv iron x 5 days --> epogen consider to start given renal status after ferritin is >500 --> hgb 8.3-->8.5-->7.6 # NAREN On CKD-- ? ESRD due to DM and HTN- ua with 4+ proteinuria --> per renal, line placement --> hd prn basis --> epo prn # Hyperkalemia- improved # Hypoglycemia # hyperphosphetemia # HTN- accelerated --> cards prn # DM # HLD Appreciate consultation and dw RN Subjective Allergies: Coded Allergies: No Known Allergies (Unverified , 01/07/20) Subjective 01/10 labs noted, no bleeding, on iv iron 01/12 to dc mcgrath, labs noted, no bleeding, h/h stabilized 01/13 s/p picc insertion, blood cx negative, labs reviewed 01/14 no events, room air, cath intact, dc planning Objective Objective Current Medications Medications (Trade) Dose Ordered Sig/[place] Route PRN Reason Start Time Stop Time Status Last Admin Dose Admin Acetaminophen (Tylenol) 650 mg Q6H PRN ORAL MILD/TEMP 01/09/20 16:34 02/08/20 16:33 Amlodipine Besylate (Norvasc) 10 mg DAILY ORAL 01/10/20 09:00 02/06/20 10:59 01/15/20 08:32 Aspirin (ASA) 81 mg DAILY ORAL 01/10/20 09:00 02/22/20 08:59 01/15/20 08:30 Carvedilol (Coreg) 25 mg EVERY 12 HOURS ORAL 01/14/20 21:00 02/09/20 20:59 01/15/20 08:32 Chlorhexidine Gluconate (Barbara-Hex 2%) 1 applic DAILY@1999 TOPIC 01/10/20 20:00 04/09/20 19:59 01/14/20 19:29 Clonidine HCl (Catapres Tab) 0.1 mg Q2H PRN ORAL For High Blood Pressure 01/10/20 06:15 04/09/20 06:14 01/12/20 13:22 Dextrose (Dextrose 50%) 25 ml Q30M PRN IV Hypoglycemia 01/09/20 16:35 04/08/20 16:34 Dextrose (Dextrose 50%) 50 ml Q30M PRN IV Hypoglycemia 01/09/20 16:35 04/08/20 16:34 Docusate Sodium (Colace) 100 mg TWICE A DAY ORAL 01/09/20 18:00 02/07/20 11:59 01/13/20 09:37 Doxazosin Mesylate (Cardura) 1 mg DAILY ORAL 01/12/20 09:00 02/11/20 08:59 01/15/20 08:31 Ergocalciferol (Drisdol) 50,000 intlu QWEEK ORAL 01/13/20 14:00 02/12/20 13:59 01/13/20 14:46 Heparin Sodium/ Sodium Chloride (Heparin 1000 units/500ml Premix) 1,000 unit ONCE PRN IV radiology procedure 01/14/20 13:00 01/16/20 12:59 Hydralazine HCl (Apresoline) 25 mg Q4H PRN ORAL For High Blood Pressure 01/09/20 20:15 04/08/20 20:14 01/12/20 05:21 Insulin Aspart (NovoLOG) AC+HS SUBQ 01/10/20 11:30 04/06/20 12:59 01/14/20 17:24 Ondansetron HCl (Zofran) 4 mg Q4H PRN IVP Nausea & Vomiting 01/09/20 16:35 02/08/20 16:34 01/14/20 19:29 Polyethylene Glycol (Miralax) 17 gm BEDTIME ORAL 01/09/20 21:00 02/07/20 20:59 01/13/20 20:43 Sevelamer Carbonate (Renvela) 800 mg THREE TIMES A DAY ORAL 01/09/20 18:00 04/07/20 08:59 01/15/20 08:32 Last 24 Hour Vital Signs Date Time Temp Pulse Resp B/P (MAP) Pulse Ox O2 Delivery O2 Flow Rate FiO2 01/15/20 08:32 83 138/60 01/15/20 08:32 83 138/60 01/15/20 08:00 98.5 83 19 138/60 (86) 94 01/15/20 04:00 98.6 79 20 141/55 (83) 93 01/15/20 00:00 97.9 78 20 145/66 (92) 90 01/14/20 22:06 72 149/83 01/14/20 21:00 Room Air 01/14/20 20:00 97.9 72 20 135/72 (93) 98 01/14/20 16:00 97.5 88 19 130/71 (90) 97 01/14/20 13:47 74 21 153/83 (106) 94 01/14/20 13:42 74 22 145/78 (100) 93 01/14/20 13:39 97.2 74 20 146/76 (99) 95 01/14/20 13:32 74 20 2.0 01/14/20 13:29 74 20 2.0 01/14/20 13:28 74 20 146/76 (99) 95 01/14/20 13:18 97.2 01/14/20 13:16 97.2 84 20 153/70 (97) 96 01/14/20 13:10 74 20 01/14/20 12:00 97.2 84 20 133/75 (94) 96 01/14/20 09:38 80 130/70 01/14/20 09:37 80 130/70 01/14/20 09:00 Room Air 01/14/20 08:00 97.0 80 21 130/70 (90) 95 01/14/20 04:00 96.9 78 20 138/67 (90) 93 01/14/20 00:00 100.9 82 22 152/67 (95) 94 01/13/20 21:00 Room Air 01/13/20 20:43 79 138/72 01/13/20 20:00 99.0 79 20 159/64 (95) 95 01/13/20 16:00 98.2 76 18 144/68 (93) 95 01/13/20 12:00 97.7 90 18 153/76 (101) 92 Intake and Output 01/14/20 01/15/20 19:00 07:00 Intake Total 875 ml 600 ml Output Total 2400 ml Balance 875 ml -1800 ml Intake Oral 820 ml 600 ml IV Total 55 ml Output Urine Total 400 ml Hemodialysis UF 2000 ml # Voids 1 # Bowel Movements 2 Labs Test 01/13/20 05:45 01/14/20 06:15 01/15/20 05:00 White Blood Count 8.9 K/UL (4.8-10.8) 10.3 K/UL (4.8-10.8) 12.8 K/UL (4.8-10.8) Red Blood Count 2.78 M/UL (4.20-5.40) 2.82 M/UL (4.20-5.40) 2.61 M/UL (4.20-5.40) Hemoglobin 8.3 G/DL (12.0-16.0) 8.5 G/DL (12.0-16.0) 7.6 G/DL (12.0-16.0) Hematocrit 25.9 % (37.0-47.0) 26.3 % (37.0-47.0) 24.4 % (37.0-47.0) Mean Corpuscular Volume 93 FL (80-99) 93 FL (80-99) 93 FL (80-99) Mean Corpuscular Hemoglobin 29.9 PG (27.0-31.0) 30.0 PG (27.0-31.0) 29.3 PG (27.0-31.0) Mean Corpuscular Hemoglobin Concent 32.1 G/DL (32.0-36.0) 32.2 G/DL (32.0-36.0) 31.3 G/DL (32.0-36.0) Red Cell Distribution Width 12.0 % (11.6-14.8) 12.5 % (11.6-14.8) 12.7 % (11.6-14.8) Platelet Count 270 K/UL (150-450) 279 K/UL (150-450) 275 K/UL (150-450) Mean Platelet Volume 5.5 FL (6.5-10.1) 6.0 FL (6.5-10.1) 5.8 FL (6.5-10.1) Neutrophils (%) (Auto) 63.5 % (45.0-75.0) 67.0 % (45.0-75.0) % (45.0-75.0) Lymphocytes (%) (Auto) 13.2 % (20.0-45.0) 13.0 % (20.0-45.0) % (20.0-45.0) Monocytes (%) (Auto) 13.7 % (1.0-10.0) 13.1 % (1.0-10.0) % (1.0-10.0) Eosinophils (%) (Auto) 8.0 % (0.0-3.0) 5.6 % (0.0-3.0) % (0.0-3.0) Basophils (%) (Auto) 1.6 % (0.0-2.0) 1.3 % (0.0-2.0) % (0.0-2.0) Sodium Level 138 MMOL/L (136-145) 137 MMOL/L (136-145) 138 MMOL/L (136-145) Potassium Level 3.8 MMOL/L (3.5-5.1) 3.5 MMOL/L (3.5-5.1) 4.1 MMOL/L (3.5-5.1) Chloride Level 103 MMOL/L (98-107) 103 MMOL/L (98-107) 105 MMOL/L (98-107) Carbon Dioxide Level 29 MMOL/L (21-32) 27 MMOL/L (21-32) 30 MMOL/L (21-32) Anion Gap 6 mmol/L (5-15) 7 mmol/L (5-15) Blood Urea Nitrogen 23 mg/dL (7-18) 29 mg/dL (7-18) 12 mg/dL (7-18) Creatinine 4.9 MG/DL (0.55-1.30) 6.0 MG/DL (0.55-1.30) 3.8 MG/DL (0.55-1.30) Estimat Glomerular Filtration Rate 8.9 mL/min (>60) 7.0 mL/min (>60) 11.9 mL/min (>60) Glucose Level 99 MG/DL (74-106) 100 MG/DL (74-106) 105 MG/DL (74-106) Calcium Level 7.4 MG/DL (8.5-10.1) 7.1 MG/DL (8.5-10.1) 7.4 MG/DL (8.5-10.1) Height (Feet): 4 Height (Inches): 11.00 Weight (Pounds): 149 Objective Physical Exam General: alert, cooperative, no distress Heent: normocephalic, without obvious abnormality Neck: supple, symmetrical, trachea midline Lungs: clear to auscultation bilaterally Heart: regular rate and rhythm, S1 Abdomen: soft, non-tender, non-distended Extremities: extremities normal, picc++ Pulses: 2+ and symmetric Skin: skin color, texture, turgor normal Neurologic: grossly normal, no focal deficits Micheal Forman MD Jan 15, 2020 11:03
[2020-01-15 12:00] VITALS: BP 133/69
--- NOTE | 2020-01-15 12:59 | Surgery Progress Note ---
Surgery Progress Note Subjective Additional Comments no acute events comfortable stable tolerating diet no complaints d/c planning permacath Objective Last 24 Hour Vital Signs Date Time Temp Pulse Resp B/P (MAP) Pulse Ox O2 Delivery O2 Flow Rate FiO2 01/15/20 09:00 Room Air 01/15/20 08:32 83 138/60 01/15/20 08:32 83 138/60 01/15/20 08:00 98.5 83 19 138/60 (86) 94 01/15/20 04:00 98.6 79 20 141/55 (83) 93 01/15/20 00:00 97.9 78 20 145/66 (92) 90 01/14/20 22:06 72 149/83 01/14/20 21:00 Room Air 01/14/20 20:00 97.9 72 20 135/72 (93) 98 01/14/20 16:00 97.5 88 19 130/71 (90) 97 01/14/20 13:47 74 21 153/83 (106) 94 01/14/20 13:42 74 22 145/78 (100) 93 01/14/20 13:39 97.2 74 20 146/76 (99) 95 01/14/20 13:32 74 20 2.0 01/14/20 13:29 74 20 2.0 01/14/20 13:28 74 20 146/76 (99) 95 01/14/20 13:18 97.2 01/14/20 13:16 97.2 84 20 153/70 (97) 96 01/14/20 13:10 74 20 I&O Intake and Output 01/14/20 01/15/20 19:00 07:00 Intake Total 875 ml 600 ml Output Total 2400 ml Balance 875 ml -1800 ml Intake Oral 820 ml 600 ml IV Total 55 ml Output Urine Total 400 ml Hemodialysis UF 2000 ml # Voids 1 # Bowel Movements 2 Cardiovascular: RSR Respiratory: decreased breath sounds Abdomen: soft, non-tender, present bowel sounds Extremities: no edema, no tenderness, no cyanosis Laboratory Tests Test 01/15/20 05:00 White Blood Count 12.8 K/UL (4.8-10.8) H Red Blood Count 2.61 M/UL (4.20-5.40) L Hemoglobin 7.6 G/DL (12.0-16.0) L Hematocrit 24.4 % (37.0-47.0) L Mean Corpuscular Volume 93 FL (80-99) Mean Corpuscular Hemoglobin 29.3 PG (27.0-31.0) Mean Corpuscular Hemoglobin Concent 31.3 G/DL (32.0-36.0) L Red Cell Distribution Width 12.7 % (11.6-14.8) Platelet Count 275 K/UL (150-450) Mean Platelet Volume 5.8 FL (6.5-10.1) L Neutrophils (%) (Auto) % (45.0-75.0) Lymphocytes (%) (Auto) % (20.0-45.0) Monocytes (%) (Auto) % (1.0-10.0) Eosinophils (%) (Auto) % (0.0-3.0) Basophils (%) (Auto) % (0.0-2.0) Sodium Level 138 MMOL/L (136-145) Potassium Level 4.1 MMOL/L (3.5-5.1) Chloride Level 105 MMOL/L (98-107) Carbon Dioxide Level 30 MMOL/L (21-32) Blood Urea Nitrogen 12 mg/dL (7-18) Creatinine 3.8 MG/DL (0.55-1.30) H Estimat Glomerular Filtration Rate 11.9 mL/min (>60) Glucose Level 105 MG/DL (74-106) Calcium Level 7.4 MG/DL (8.5-10.1) L Plan Problems: (1) Anemia Assessment & Plan: Transfuse PRN No active bleeding noted Trend H&H (2) Renal insufficiency Assessment & Plan: [age]-year-old female identified to have significant abnormal labs on admission elevated creatinine and BUN electrolytes. Discussed with nephrology patient in need of dialysis. Family has been contacted for consent given patient's current mental status but currently have not been decision as to care plan and goals of care Patient needs HD access for hemodialysis if family she was wishes Will await consent will be available for placement of catheter to initiate hemodialysis Thank you for let me participate patient's care family consented to line placement anemia transfuse with HD line placed right IJ temp HD perm a cath dialysis placement d/c planning (3) Hypertension (4) Hypoglycemia secondary to sulfonylurea Matheus Colvin Jan 15, 2020 12:59
--- NOTE | 2020-01-15 13:14 | Nephrology Progress Note ---
Assessment/Plan Plan #NAREN vs NAREN On CKD-- ? ESRD due to DM and HTN- ua with 4+ proteinuria #Hyperkalemia- improved #Hypoglycemia #hyperphosphetemia #HTN- accelerated #DM #HLD #anemia of CKD? - permcath placed - outpatient HD set up at renal - ok to DC today - check renal US-> echogenic kidneys - prbc transfusion prn - IV iron - amlodipine 10mg daily - hydralazine PRN for now - sevelamer 800mgTID - avoid nephrotoxins - strict I&Os time spent 70 min, greater than 50% on care coordination and counseling. Subjective ROS Limited/Unobtainable: No Subjective s/p HD yesterday permacath placed Martina US:IMPRESSION: ECHOGENIC KIDNEYS REFLECTING MEDICAL RENAL DISEASE. NO OBSTRUCTIVE UROPATHY. GALLSTONE. Objective Objective Last 24 Hour Vital Signs Date Time Temp Pulse Resp B/P (MAP) Pulse Ox O2 Delivery O2 Flow Rate FiO2 01/15/20 09:00 Room Air 01/15/20 08:32 83 138/60 01/15/20 08:32 83 138/60 01/15/20 08:00 98.5 83 19 138/60 (86) 94 01/15/20 04:00 98.6 79 20 141/55 (83) 93 01/15/20 00:00 97.9 78 20 145/66 (92) 90 01/14/20 22:06 72 149/83 01/14/20 21:00 Room Air 01/14/20 20:00 97.9 72 20 135/72 (93) 98 01/14/20 16:00 97.5 88 19 130/71 (90) 97 01/14/20 13:47 74 21 153/83 (106) 94 01/14/20 13:42 74 22 145/78 (100) 93 01/14/20 13:39 97.2 74 20 146/76 (99) 95 01/14/20 13:32 74 20 2.0 01/14/20 13:29 74 20 2.0 01/14/20 13:28 74 20 146/76 (99) 95 01/14/20 13:18 97.2 01/14/20 13:16 97.2 84 20 153/70 (97) 96 Intake and Output 01/14/20 01/15/20 19:00 07:00 Intake Total 875 ml 600 ml Output Total 2400 ml Balance 875 ml -1800 ml Intake Oral 820 ml 600 ml IV Total 55 ml Output Urine Total 400 ml Hemodialysis UF 2000 ml # Voids 1 # Bowel Movements 2 Laboratory Tests 01/15/20 05:00: White Blood Count 12.8H, Red Blood Count 2.61L, Hemoglobin 7.6L, Hematocrit 24.4L, Mean Corpuscular Volume 93, Mean Corpuscular Hemoglobin 29.3, Mean Corpuscular Hemoglobin Concent 31.3L, Red Cell Distribution Width 12.7, Platelet Count 275, Mean Platelet Volume 5.8L, Neutrophils (%) (Auto) , Lymphocytes (%) (Auto) , Monocytes (%) (Auto) , Eosinophils (%) (Auto) , Basophils (%) (Auto) , Sodium Level 138, Potassium Level 4.1, Chloride Level 105 , Carbon Dioxide Level 30, Blood Urea Nitrogen 12, Creatinine 3.8H, Estimat Glomerular Filtration Rate 11.9, Glucose Level 105, Calcium Level 7.4L Height (Feet): 4 Height (Inches): 11.00 Weight (Pounds): 149 Anand Cannon M.D. Jan 15, 2020 13:14
--- NOTE | 2020-01-15 13:38 | Cardiology Progress Note ---
Assessment/Plan Status: stable Assessment/Plan Assessment/Plan Problem List: (1) Renal insufficiency (2) Anemia (3) Hypertension (4) Hypoglycemia secondary to sulfonylurea (5) Hyperkalemia/hyponatremia 1-Hold lisinopril until creatinine <1.5 2- monitor electrolytes 3- IV fluids 4- Echocardiogram to evaluate for hypertensive heart disease LVEF normal, PAH 48 mmHg moderate MR - will need fluid removal to lower pressures and MR - no indiction for intervention at this time 5-Outpatient stress test given cardiac risk factors 6-Continue norvasc 10 mg qHS 7-Continue coreg 12.5 mg BID 8-DASH diet 9-Continue cardura 2 mg for better BP control goal <130/80 10- Clear for d/c from cardiac standpoint after perm cath placed Subjective Cardiovascular: Reports: no symptoms Respiratory: Reports: no symptoms Gastrointestinal/Abdominal: Reports: no symptoms Genitourinary: Reports: no symptoms Subjective No acute events, no chest pain, blood pressures stable, no fevers, no complaints , perm cath placed, ready for d/c Objective Last 24 Hour Vital Signs Date Time Temp Pulse Resp B/P (MAP) Pulse Ox O2 Delivery O2 Flow Rate FiO2 01/15/20 09:00 Room Air 01/15/20 08:32 83 138/60 01/15/20 08:32 83 138/60 01/15/20 08:00 98.5 83 19 138/60 (86) 94 01/15/20 04:00 98.6 79 20 141/55 (83) 93 01/15/20 00:00 97.9 78 20 145/66 (92) 90 01/14/20 22:06 72 149/83 01/14/20 21:00 Room Air 01/14/20 20:00 97.9 72 20 135/72 (93) 98 01/14/20 16:00 97.5 88 19 130/71 (90) 97 01/14/20 13:47 74 21 153/83 (106) 94 01/14/20 13:42 74 22 145/78 (100) 93 01/14/20 13:39 97.2 74 20 146/76 (99) 95 General Appearance: no apparent distress, alert EENT: PERRL/EOMI, normal ENT inspection, TMs normal, pharynx normal Neck: non-tender, normal alignment, supple, normal inspection, no JVD Rhythm: NSR Cardiovascular: normal peripheral pulses, normal rate, regular rhythm Respiratory/Chest: chest wall non-tender, lungs clear, normal breath sounds Abdomen: normal bowel sounds, non tender, soft, no organomegaly, no mass Extremities: normal range of motion, non-tender, normal inspection 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, no motor/sensory deficits Intake and Output 01/14/20 01/15/20 19:00 07:00 Intake Total 875 ml 600 ml Output Total 2400 ml Balance 875 ml -1800 ml Intake Oral 820 ml 600 ml IV Total 55 ml Output Urine Total 400 ml Hemodialysis UF 2000 ml # Voids 1 # Bowel Movements 2 Laboratory Tests Test 01/15/20 05:00 White Blood Count 12.8 K/UL (4.8-10.8) H Red Blood Count 2.61 M/UL (4.20-5.40) L Hemoglobin 7.6 G/DL (12.0-16.0) L Hematocrit 24.4 % (37.0-47.0) L Mean Corpuscular Volume 93 FL (80-99) Mean Corpuscular Hemoglobin 29.3 PG (27.0-31.0) Mean Corpuscular Hemoglobin Concent 31.3 G/DL (32.0-36.0) L Red Cell Distribution Width 12.7 % (11.6-14.8) Platelet Count 275 K/UL (150-450) Mean Platelet Volume 5.8 FL (6.5-10.1) L Neutrophils (%) (Auto) % (45.0-75.0) Lymphocytes (%) (Auto) % (20.0-45.0) Monocytes (%) (Auto) % (1.0-10.0) Eosinophils (%) (Auto) % (0.0-3.0) Basophils (%) (Auto) % (0.0-2.0) Sodium Level 138 MMOL/L (136-145) Potassium Level 4.1 MMOL/L (3.5-5.1) Chloride Level 105 MMOL/L (98-107) Carbon Dioxide Level 30 MMOL/L (21-32) Blood Urea Nitrogen 12 mg/dL (7-18) Creatinine 3.8 MG/DL (0.55-1.30) H Estimat Glomerular Filtration Rate 11.9 mL/min (>60) Glucose Level 105 MG/DL (74-106) Calcium Level 7.4 MG/DL (8.5-10.1) L Max Corbett MD Jan 15, 2020 13:37
== END 2020-01-15 15:27 | disposition home or self-care (01) | DRG 420 ==
LOC: EDBD 06:19 → EMR 07:01 → 2E 07:05 → EDBEDREQSVC 07:22 → EDBEDREQ 07:22 → 4E 01-09 15:53
PROC: 30233N1 Transfusion of Nonautologous Red Blood Cells into Peripheral Vein, Percutaneous Approach (ICD-10-PCS; 2020-01-08)
PROC: 05HM33Z Insertion of Infusion Device into Right Internal Jugular Vein, Percutaneous Approach (ICD-10-PCS; principal; 2020-01-09)
PROC: 5A1D70Z Performance of Urinary Filtration, Intermittent, Less than 6 Hours Per Day (ICD-10-PCS; 2020-01-09)
PROC: 0JH63XZ Insertion of Tunneled Vascular Access Device into Chest Subcutaneous Tissue and Fascia, Percutaneous Approach (ICD-10-PCS; 2020-01-14)
PROC: 02H633Z Insertion of Infusion Device into Right Atrium, Percutaneous Approach (ICD-10-PCS; 2020-01-14)
DX: E11.649 Type 2 diabetes mellitus with hypoglycemia without coma (principal); T38.3X5A Adverse effect of insulin and oral hypoglycemic [antidiabetic] drugs, initial encounter; G93.40 Encephalopathy, unspecified; N17.9 Acute kidney failure, unspecified; E11.22 Type 2 diabetes mellitus with diabetic chronic kidney disease; I12.0 Hypertensive chronic kidney disease with stage 5 chronic kidney disease or end stage renal disease; N18.6 End stage renal disease; Z79.84 Long term (current) use of oral hypoglycemic drugs; E87.1 Hypo-osmolality and hyponatremia; Z79.82 Long term (current) use of aspirin; E87.5 Hyperkalemia; E78.5 Hyperlipidemia, unspecified; E83.39 Other disorders of phosphorus metabolism; D64.9 Anemia, unspecified
CPT/HCPCS: 36415; 36569; 71045; 76000; 76770; 76937; 80048; 80053; 81001; 81003; 82044; 82270; 82306; 82570; 82607; 82728; 82962; 83036; 83540; 83550; 83605; 83735; 83880; 83970; 84100; 84132; 84300; 84443; 85007; 85025; 85610; 85730; 86140; 86705; 86706; 86709; 86803; 86850; 86900; 86901; 86920; 87040; 87081; 87340; 93005; 93306; 93970; 94640; 96361; 96365; 96372; 99285; J1815; J2405; J7620; J8499; U0002

== ENCOUNTER 2020-01-30 16:02 | Emergency (ER) | payer MEDICAID ==
[~2020-01-30] VITALS: Ht 144.8 cm; Wt 57.2 kg
[~2020-01-30 16:02] MED LIST: ASPIRIN81 MG ORAL; CARDURA1 MG ORAL; COREG25 MG ORAL; GLIPIZIDE ER2.5 MG PO; LISINOPRIL20 MG ORAL; NORVASC10 MG ORAL; RENVELA800 MG ORAL
--- NOTE | 2020-01-30 16:20 | Emergency Room Report ---
History of Present Illness General Chief Complaint: General Complaint Source: Patient Present Illness HPI Patient is a 64-year-old female past medical history of diabetes, hypertension recently started on dialysis who presents to the ER stating that she was told she needs a blood transfusion. Patient states she went for dialysis yesterday and is due for dialysis tomorrow. She denies any fever or chills. She denies any chest pain or shortness of breath. She denies any weakness or fatigue. She denies any nausea or vomiting. Patient was recently admitted for hypoglycemia on January 15, 2020. Patient denies any active bleeding specifically no hematuria or blood in her stool. Allergies: Coded Allergies: No Known Allergies (Unverified , 01/07/20) COVID-19 Screening Contact w/high risk pt: No Recent Travel to affected area: No Experienced COVID-19 symptoms?: No COVID-19 Testing performed [employer] REPRESENTATIVE: No Patient History Reviewed Nursing Documentation: PMH: Agreed; PSxH: Agreed Nursing Documentation-PMH Past Medical History: No History, Except For Hx Cardiac Problems: Yes Hx Hypertension: Yes Hx Diabetes: Yes Hx Cancer: No Hx Gastrointestinal Problems: No Hx Dialysis: Yes Hx Neurological Problems: No Review of Systems All Other Systems: negative except mentioned in HPI Physical Exam Vital Signs Date Time Temp Pulse Resp B/P (MAP) Pulse Ox O2 Delivery O2 Flow Rate FiO2 01/30/20 16:08 98.2 73 15 158/73 (101) 100 Room Air Sp02 EP Interpretation: reviewed, normal General Appearance: no apparent distress, alert, GCS 15, non-toxic Head: normocephalic, atraumatic Eyes: bilateral eye normal inspection, bilateral eye PERRL ENT: hearing grossly normal, normal pharynx, no angioedema, normal voice Neck: full range of motion, supple/symm/no masses Respiratory: no respiratory distress, other - Right anterior chest wall Eduardo catheter in place Cardiovascular #1: regular rate, rhythm, normal capillary refill Gastrointestinal: normal bowel sounds, non tender, soft, non-distended, no guarding, no rebound Rectal: deferred Musculoskeletal: no calf tenderness Neurologic: director compliance III-XII nml as tested, oriented x3 Psychiatric: no suicidal/homicidal ideation Skin: no rash, pallor Lymphatic: no adenopathy Medical Decision Making Diagnostic Impression: Primary Impression: Anemia Additional Impression: Chronic renal failure ER Course Patient presented with reported anemia requiring blood transfusion. She was asymptomatic. Her hemoglobin is 8.4 which is consistent with her baseline. Vital signs are stable. No blood transfusion needed at this time. Patient advised to follow-up at dialysis tomorrow. After discussing risks and benefits of further diagnostics, treatment plans, as well as indications for and risks of admission, the patient is agreeable to being discharged home. I have explained that their evaluation and treatment in the emergency department today is an important step towards them achieving better health but that their evaluation today is not intended to replace further evaluation and treatment by a physician in their local clinic. I have explained that while the current findings suggest no immediate life threatening emergency they will require further evaluation and treatment by a physician of their choice in their area. They understand that it will be necessary for them to review the final reports of their ED visit with their clinic physician. We have reviewed indications for return to the Emergency Department. I have explained that additional time may need to pass and/or additional testing as an outpatient may be necessary before a definitive diagnosis can be made. They tell me they are willing to follow up as instructed within the timeframe I recommend. They appear to understand what we discussed. Additionally they understand that if they are unable to be seen by an outpatient physician they are welcome, and in fact should, return to the Emergency Department for a repeat evaluation. The patient is stable at time of discharge. Laboratory Tests Test 01/30/20 16:30 White Blood Count 8.5 K/UL (4.8-10.8) Red Blood Count 2.79 M/UL (4.20-5.40) L Hemoglobin 8.4 G/DL (12.0-16.0) L Hematocrit 25.9 % (37.0-47.0) L Mean Corpuscular Volume 93 FL (80-99) Mean Corpuscular Hemoglobin 29.9 PG (27.0-31.0) Mean Corpuscular Hemoglobin Concent 32.3 G/DL (32.0-36.0) Red Cell Distribution Width 14.0 % (11.6-14.8) Platelet Count 278 K/UL (150-450) Mean Platelet Volume 6.1 FL (6.5-10.1) L Neutrophils (%) (Auto) 66.3 % (45.0-75.0) Lymphocytes (%) (Auto) 15.6 % (20.0-45.0) L Monocytes (%) (Auto) 11.9 % (1.0-10.0) H Eosinophils (%) (Auto) 4.9 % (0.0-3.0) H Basophils (%) (Auto) 1.5 % (0.0-2.0) Prothrombin Time 11.0 SEC (9.30-11.50) Prothrombin Time INR 1.0 (0.9-1.1) Activated Partial Thromboplast Time 28 SEC (23-33) Sodium Level 140 MMOL/L (136-145) Potassium Level 4.1 MMOL/L (3.5-5.1) Chloride Level 103 MMOL/L (98-107) Carbon Dioxide Level 29 MMOL/L (21-32) Anion Gap 8 mmol/L (5-15) Blood Urea Nitrogen 25 mg/dL (7-18) H Creatinine 4.1 MG/DL (0.55-1.30) H Estimated Glomerular Filtration Rate 10.9 mL/min (>60) Glucose Level 109 MG/DL (74-106) H Calcium Level 8.3 MG/DL (8.5-10.1) L Magnesium Level 2.2 MG/DL (1.8-2.4) Total Bilirubin 0.2 MG/DL (0.2-1.0) Aspartate Amino Transferase (AST) 25 U/L (15-37) Alanine Aminotransferase (ALT) 27 U/L (12-78) Alkaline Phosphatase 198 U/L (46-116) H Total Protein 7.3 G/DL (6.4-8.2) Albumin 2.7 G/DL (3.4-5.0) L Globulin 4.6 g/dL Albumin/Globulin Ratio 0.6 (1.0-2.7) L Rhythm Strip Diag. Results Rhythm Strip Time: 17:05 EP Interpretation: yes - Melina Amos MD Rate: 70 bpm Rhythm: NSR, no PVC's, no ectopy Last Vital Signs Date Time Temp Pulse Resp B/P (MAP) Pulse Ox O2 Delivery O2 Flow Rate FiO2 01/30/20 16:08 98.2 73 15 158/73 (101) 100 Room Air Disposition: HOME, SELF-CARE Condition: Stable Additional Instructions: The patient was provided with discharge instructions, notified to follow-up with a primary care doctor and or specialist in the next 24-48 hours, and to return to the ED if they have worsening of their symptoms. Please note that this report is being documented using [employer] technology. This can lead to erroneous entry secondary to incorrect interpretation by the dictating instrument. Melina Amos M.D. Jan 30, 2020 16:20
[2020-01-30 16:34] VITALS: BP 166/89
[2020-01-30 16:38] LABS: BASOPHILS % (AUTO) 1.5 % (0.0-2.0); EOSINOPHILS % (AUTO) 4.9 % (0.0-3.0); HEMATOCRIT 25.9 % (37.0-47.0); HEMOGLOBIN 8.4 G/DL (12.0-16.0); LYMPHOCYTES % (AUTO) 15.6 % (20.0-45.0); MEAN CORPUSCULAR VOLUME 93 FL (80-99); MONOCYTES % (AUTO) 11.9 % (1.0-10.0); NEUTROPHILS % (AUTO) 66.3 % (45.0-75.0); PLATELET COUNT 278 K/UL (150-450); RED BLOOD COUNT 2.79 M/UL (4.20-5.40); WHITE BLOOD COUNT 8.5 K/UL (4.8-10.8)
[2020-01-30 16:47] LABS: ANION GAP 8 mmol/L (5-15); BLOOD UREA NITROGEN 25 mg/dL (7-18); CALCIUM 8.3 MG/DL (8.5-10.1); CARBON DIOXIDE 29 MMOL/L (21-32); CHLORIDE 103 MMOL/L (98-107); CREATININE 4.1 MG/DL (0.55-1.30); POTASSIUM 4.1 MMOL/L (3.5-5.1); SODIUM 140 MMOL/L (136-145)
[2020-01-30] MEDS ORDERED: RENAGEL800 MG ORAL (16:47)
[2020-01-30 16:51] LABS: ALANINE AMINOTRANSFERASE 27 U/L (12-78); ALBUMIN 2.7 G/DL (3.4-5.0); ALBUMIN/GLOBULIN RATIO 0.6 (1.0-2.7); ALKALINE PHOSPHATASE 198 U/L (46-116); ASPARTATE AMINO TRANSFERASE 25 U/L (15-37); BILIRUBIN,TOTAL 0.2 MG/DL (0.2-1.0)
[2020-01-30 17:28] VITALS: BP 144/76
== END 2020-01-30 17:30 | disposition home or self-care (01) ==
LOC: EMR 16:26 → CANBEDREQ 17:21 → EMR 17:30
DX: I12.9 Hypertensive chronic kidney disease with stage 1 through stage 4 chronic kidney disease, or unspecified chronic kidney disease (principal); D63.1 Anemia in chronic kidney disease; E11.22 Type 2 diabetes mellitus with diabetic chronic kidney disease; N18.9 Chronic kidney disease, unspecified; Z99.2 Dependence on renal dialysis
CPT/HCPCS: 36415; 80053; 83735; 85025; 85610; 85730; 86850; 86900; 86901; Z7502; 99283